=== PATIENT | female | born 1935 | race Caucasian/White ===

== ENCOUNTER 2016-06-29 16:43 | Inpatient (IN) | payer BC, MEDICARE ==
[~2016-06-29] VITALS: Ht 165.1 cm; Wt 101.0 kg
[~2016-06-29 16:43] MED LIST: /PRAV20TA; /WARF5TA; /WARF5TA OR; AZOPT EYE OU; BYETTA; COMBINATION CREAM TOP; CORE12.5; CORE12.5 OR; FOSI40TA; FOSI40TA OR; HYDR25TA6; HYDR25TA6 OR; INSULANT; INSULANT SC; LEVO100T4 PO; LIDO5DIS; NOVOLOG FLEX PEN SC; SIMV40TA2; SIMV40TA2 OR; SKEL800T5; SKEL800T5 OR; SYNT137T; SYNT137T OR; TRAVATAN EYE DROP OU; byetta PO
[2016-06-29] MEDS ORDERED: DULO30CA PO (16:58)
[2016-06-29] MEDS ORDERED: ROCA0.25 PO (16:58)
[2016-06-29] MEDS ORDERED: GABA-283 PO (16:58)
[2016-06-29] MEDS ORDERED: ALLO100T PO (16:58)
[2016-06-29] MEDS ORDERED: NS IV ONE (17:00)
[2016-06-29] MEDS ORDERED: DILUENT IV ONE (17:00)
[2016-06-29 17:07] LABS: VENOUS BASE EXCESS -1.2 (-2.0-2.0); VENOUS O2 SATURATION 83.1 % (60.0-80.0); VENOUS PARTIAL PRESSURE CO2 54.8 mmHg (38.0-50.0); VENOUS PARTIAL PRESSURE O2 51.2 mmHg (30.0-50.0); VENOUS STANDARD HCO3 23.1 MEQ/L; VENOUS TOTAL CO2 27.9 MEQ/L (24.0-28.0)
[2016-06-29 17:09] LABS: BASO # 0.1 K/mm3 (0.0-0.2); BASO % 1.2 % (0.0-1.0); EOS # 0.4 K/mm3 (0.0-0.50); EOS % 8.4 % (0.0-3.0); LARGE UNSTAINED CELL # 0.2 K/mm3 (0.0-0.4); LARGE UNSTAINED CELL % 3.7 % (0.0-4.0); LYMPH # 0.9 K/mm3 (1.5-4.5); LYMPH % 16.1 % (24.0-44.0); MEAN CORPUSCULAR HEMOGLOBIN 31.9 pg (27.0-33.0); MEAN CORPUSCULAR HGB CONC 32.2 g/dl (32.0-36.5); MONO # 0.5 K/mm3 (0.0-0.8); MONO % 9.4 % (0.0-5.0); NEUTROPHILS # 3.3 K/mm3 (1.8-7.7); NEUTROPHILS % 61.2 % (36.0-66.0); PLATELET COUNT, AUTOMATED 209 k/mm3 (150-450); RED CELL DISTRIBUTION WIDTH 12.4 % (11.5-14.5); WHITE BLOOD COUNT 5.3 K/mm3 (4.0-10.0)
--- NOTE | 2016-06-29 17:20 | REP ---
Clinical: Sepsis. Shock. Comparison: 05/02/2013. Findings: Examination is severely limited by portable technique and poor expiratory effort. Basilar atelectasis cannot be excluded. Mediastinum and cardiac silhouette stable. No obvious effusion. No pneumothorax. Skeletal structures intact. Impression: Limited evaluation due to poor inspiratory effort. Cannot exclude basilar atelectasis. Signed by Horace Tapia MD 06/29/2016 05:12 P
[2016-06-29 17:37] LABS: BLOOD UREA NITROGEN 70 MG/DL (7-18); CARBON DIOXIDE LEVEL 28 MEQ/L (21-32); CHLORIDE LEVEL 106 MEQ/L (98-107); CREATININE FOR GFR 2.37 MG/DL (0.55-1.02); GLOMERULAR FILTRATION RATE 20.9 (>32); GLUCOSE, FASTING 121 MG/DL (83-110); POTASSIUM SERUM 3.9 MEQ/L (3.5-5.1); SODIUM LEVEL 142 MEQ/L (136-145)
--- NOTE | 2016-06-29 17:37 | REP ---
Clinical: Trauma. Comparison 11/16/2015 . Findings: Age-related atrophy and microvascular ischemic changes are appreciated. The ventricles and sulci are symmetric. Mares-white differentiation is maintained. There is no evidence for acute intracranial hemorrhage, mass/mass effect, pathology or infarction. No extra-axial fluid collection. Calvarium is intact. Paranasal sinuses and mastoid air cells are clear. Impression: Age related atrophy and microvascular ischemic changes. No acute intracranial hemorrhage, infarction, or mass/mass effect. Signed by Horace Tapia MD 06/29/2016 05:28 P
[2016-06-29 17:38] LABS: ALBUMIN 3.3 GM/DL (3.2-5.2); ALKALINE PHOSPHATASE 95 U/L (45-117); ALT/SGPT 23 U/L (12-78); AMYLASE 41 U/L (25-115); ANION GAP 8 MEQ/L (8-16); AST/SGOT 15 U/L (15-37); BILIRUBIN,DIRECT < 0.1 MG/DL (0.0-0.2); BILIRUBIN,TOTAL 0.4 MG/DL (0.2-1.0); CALCIUM LEVEL 8.9 MG/DL (8.8-10.2); TOTAL PROTEIN 6.3 GM/DL (6.4-8.2)
--- NOTE | 2016-06-29 17:39 | REP ---
Clinical: Trauma. Technique: Axial noncontrast images from the skull base to the thoracic inlet with coronal and sagittal re-formations. Findings: Advanced multilevel degenerative disc osteophyte complexes are appreciated extending from the C1-C2 level through the C7-T1 level including apparent chronic effusion at C6-7. Further findings include osteophytosis, endplate sclerosis and disc space narrowing as well as chondrocalcinosis and partially calcified ligamentum. There is no evidence for acute fracture / compression injury or subluxation. Spinal canal appears grossly patent. Posterior elements and spinous processes are intact. Paravertebral soft tissues are normal. Impression: Advanced multilevel degenerative changes. No evidence for acute cervical spine trauma/injury. Signed by Horace Tapia MD 06/29/2016 05:31 P
--- NOTE | 2016-06-29 17:44 | REP ---
Clinical: Hypotension. Findings: Lung bases demonstrate acute on chronic fibroatelectatic changes. Liver, spleen, pancreas, and bilateral adrenal glands are normal for noncontrast evaluation. Kidneys demonstrate chronic age-related changes including bilateral cysts - the largest of which measures 7.7 cm involving the left kidney. No significant perinephric stranding or hydroureteronephrosis. The patient is status post cholecystectomy. The enteric system demonstrates small hiatal hernia and there is no evidence for bowel obstruction or acute inflammatory process sigmoid diverticulosis noted without definite acute diverticulitis. Normal terminal ileum and appendix identified in the right lower quadrant. 2 cm fat containing periumbilical hernia identified. Pelvis demonstrates normal bladder and age-appropriate uterus/adnexa. No free air. No free fluid. No intraperitoneal or retroperitoneal adenopathy. No obvious mass lesion. Surrounding musculoskeletal structures demonstrate degenerative changes. Impression: 1. No acute intra-abdominal or pelvic pathology. No free fluid. No adenopathy. 2. Bilateral renal cysts largest of which measures 7.7 cm and the left kidney. 3. Sigmoid diverticula without obvious acute diverticulitis. 4. 2 cm fat containing periumbilical hernia. 5. Acute on chronic bibasilar fibroatelectatic changes Signed by Horace Tapia MD 06/29/2016 05:36 P
[2016-06-29 17:54] LABS: INR 2.47
[2016-06-29] MEDS ORDERED: FISH5CAP PO ×2 (17:56→19:27)
[2016-06-29] MEDS ORDERED: cefTRIAXone SOD 2 GM in D5W MINI-BAG PLUS 50 ML IV ONE (18:00)
[2016-06-29] MEDS ORDERED: LYRI75CA PO ×2 (18:07→19:27)
[2016-06-29] MEDS ORDERED: CYMB60CA3 PO (18:07)
[2016-06-29] MEDS ORDERED: TORS20TA2 PO ×3 (18:07→19:27)
[2016-06-29] MEDS ORDERED: MAGN64TASA PO ×2 (18:07→19:27)
[2016-06-29] MEDS ORDERED: SYNT112T2 PO (18:07)
[2016-06-29] MEDS ORDERED: INSULANT SC ×5 (18:07→19:27)
[2016-06-29] MEDS ORDERED: CALC600T57 PO (18:07)
[2016-06-29 18:24] LABS: MAGNESIUM LEVEL 2.6 MG/DL (1.8-2.4); PHOSPHORUS LEVEL 3.9 MG/DL (2.5-4.9); T UPTAKE 38 % (30-39); THYROXINE (T4) 8.4 UG/DL (4.5-12.0)
[2016-06-29] MEDS ORDERED: CALC600T7 PO (19:27)
[2016-06-29] MEDS ORDERED: TYLETAB14 PO (19:27)
[2016-06-29] MEDS ORDERED: ALLO10TA PO (19:27)
[2016-06-29] MEDS ORDERED: NOVOINJ3 SC ×2 (19:27)
[2016-06-29] MEDS ORDERED: FOSI40TA PO (19:27)
[2016-06-29] MEDS ORDERED: CARV12.5 PO (19:27)
[2016-06-29] MEDS ORDERED: CALC1CAP31 PO (19:27)
[2016-06-29] MEDS ORDERED: DORZ2SOL5 OU (19:27)
[2016-06-29] MEDS ORDERED: DULO1CAP3 PO (19:27)
[2016-06-29] MEDS ORDERED: BIMA01SOL OU (19:27)
[2016-06-29] MEDS ORDERED: GABA800T PO (19:27)
[2016-06-29] MEDS ORDERED: LEVO112T2 PO (19:27)
[2016-06-29] MEDS ORDERED: COUM1TAB17 PO (19:29)
[2016-06-29] MEDS ORDERED: ZOCO40TA PO (19:29)
[2016-06-29] MEDS ORDERED: GLUCAGON FOR INJ 1 MG VIAL (J1610) SC PRN (19:30)
[2016-06-29] MEDS ORDERED: ACETAMINOPHEN TAB 650MG DOSE (2X325MG) PO PRN (19:30)
[2016-06-29] MEDS ORDERED: ONDANSETRON 4MG/2ML VIAL (J2405) IV PRN (19:30)
[2016-06-29] MEDS ORDERED: GLUCOSE 4 GM CHEW TABLET PO PRN (19:30)
[2016-06-29] MEDS ORDERED: DEXTROSE 50% 50 ML SYRINGE IV PRN (19:30)
--- NOTE | 2016-06-29 20:00 | HPE ---
DATE OF ADMISSION: 06/29/2016 PRIMARY CARE PROVIDER: Dr. Florez. CODE STATUS: FULL CODE. CHIEF COMPLAINT: Generalized weakness with mechanical fall earlier this afternoon. HISTORY OF THE PRESENT ILLNESS: Ms. Ojeda is a pleasant 80-year-old female who presents to the emergency department accompanied with her family, concerned for a fall after having a bowel movement earlier today and felt that her legs were weak and just gave out underneath her. She denies loss of consciousness, is unsure, however, if she had hit her head or not but denies any headache, lightheadedness, dizziness, blurry vision or double vision and states again that she felt that her legs had just "buckled" underneath her. She did have a loose bowel movement today, but she denies any previous to this. Denies any sick contacts. She did have some nausea with no vomiting. Denies any hematochezia or melena. She did state that the ripsaw operator that she sees, Dr. Silva, has been making changes with her torsemide and Lasix recently, that she has noticed an increase in urine output since then and her leg swelling has decreased dramatically in the last week or so. Additionally, she has recently had shingles with postherpetic neuralgia, has had the addition of Lyrica started and she wonders if this may be a causative factor to her problems as well. PAST MEDICAL HISTORY: Includes: Gout. Hypertension. Depression. Diabetes. Diabetic neuropathy. Postherpetic neuralgia. Atrial fibrillation. Hypothyroidism. Hyperlipidemia. Gastroesophageal reflux disease (GERD). Chronic low back pain. Conjunctive hemorrhage in the past. Obstructive sleep apnea (JOSE) with continuous positive airway pressure (CPAP). PAST SURGICAL HISTORY: Includes: Cholecystectomy. Cervical neck hernia repair. Rotator cuff repair. FAMILY HISTORY: Noncontributory. SOCIAL HISTORY: She lives at home. No tobacco use. No alcohol use. No sick contacts. No recent travel. ALLERGIES: QUINOLONES and TRAMADOL. HOME MEDICATIONS: Include: - allopurinol - calcitriol - Coreg - Cymbalta - fish oil - gabapentin - hydrochlorothiazide - Lantus - Synthroid - magnesium oxide - Lyrica - Zocor - torsemide - Coumadin - Azopt eye drops - NovoLog FlexPen - Travatan eye drops - There has been some disagreement with the milligram dosage of the medications compared to the electronic medical record and the home medication list that the patient presents with. Pharmacy is currently working on the medication reconciliation. REVIEW OF SYSTEMS: CONSTITUTIONAL: No fevers, chills, rigors. She did have some weakness but no loss of consciousness. HEENT: She denies headache, lightheadedness, dizziness, blurry vision, double vision or tinnitus. No difficulty with speech or swallow. PULMONARY: No productive sputum. She denies cough. No hemoptysis. CARDIOVASCULAR: She denies substernal chest pain. No paroxysmal nocturnal dyspnea (PND) or orthopnea. She feels that her lower extremity edema is much improved. GASTROINTESTINAL (GI): Some nausea with no vomiting. She did have a loose bowel movement times one earlier. She denies any hematochezia or melena. GENITOURINARY (): She has had some increased frequency; however, she feels it is due to the change in dose of the diuretics. No hematuria. NEUROLOGIC: She did have an episode of weakness today but no loss of consciousness, no paresthesia or paralysis. ENDOCRINE: Positive for diabetes. Positive for hypothyroidism. LYMPHATICS: No lumps, bumps, swelling in the neck, axilla or groin. No night sweats. No weight loss. HEMATOLOGY: No bleeding or bruising disorder. No prior history of venous thromboembolism. ONCOLOGY: No history of cancer. PSYCHIATRIC: Remote history of depression. No suicidal ideation. No audiovisual hallucinations. 10-point review of systems complete. Pertinent positives are listed. PHYSICAL EXAMINATION: Temperature is 96.0, pulse is 60 and regular, respiratory rate is 18, nonlabored. Blood pressure initially on presentation 116/51. It did drop to 99/49. She did receive a fluid bolus that she is in the process of, 30 mL per kilogram and her pressures now are much improved with a blood pressure 111/55. SpO2 is 93%. GENERAL: The patient appears to be in no acute distress. She is alert, pleasant to talk to. HEENT: Head is atraumatic, normocephalic. Eyes: Pupils equal, reactive to light and accommodation. Throat: Clear. Mucosal membrane does appear to be dry. NECK: Supple. Unable to determine jugular venous distention (JVD) due to body habitus. LUNGS: Diminished bibasilar breath sounds, otherwise clear. HEART: Regular rate and rhythm. ABDOMEN: Soft, obese. Nontender, nondistended with positive bowel sounds. No masses, no rebound. EXTREMITIES: She has 1+ edema at the ankles. No calf tenderness. Pulses are present. NEUROLOGIC: Cranial nerves II-XII are grossly intact. LABORATORY AND DIAGNOSTIC: White count is 5.3, hemoglobin 13.5, platelets are 209,000. Sodium is 142, potassium 3.9, chloride 106, bicarbonate 28, anion gap 8. BUN is 70, creatinine 2.37. She appears to have a baseline around 1.3 to 1.4. Lactic acid is 2, calcium 8.9, phosphorus 3.9, magnesium 2.6, total and direct bilirubin 0.4 and less than 0.1. AST 15, ALT 23, alkaline phosphatase 95, CK is 98, CK-MB is 2.5, troponin is less than 0.02. CRP is 2.08. Amylase is 1.1. TSH is 0.74. Blood culture times two is pending. Influenza A and B are pending. Will go ahead and add on a GI panel as well. Twelve lead EKG: Sinus bradycardia with occasional PVC. No acute ST-T wave abnormality noted. Chest x-ray: Poor inspiratory effort but no acute cardiopulmonary processes. No consolidation or infiltrate noted. CT of the abdomen and pelvis: No acute intraabdominal or pelvic pathology. No free fluid. No adenopathy. Bilateral renal cysts, largest measuring 7.7 of the left kidney, sigmoid diverticula without obvious acute diverticulitis, 2 cm fat-containing periumbilical hernia. Acute on chronic bibasilar fibroatelectatic changes. Head CT: No acute intracranial hemorrhage. Age-related microvascular ischemic changes. Cervical spine CT did show some degenerative changes, otherwise no acute findings. IMPRESSION: A pleasant 80-year-old female who presents after having an episode of generalized weakness and fall at home with no loss of consciousness. She has had changes in some of her medications regarding her diuretics and Lyrica recently. Clinically, she appears to be dry. She did receive some IV fluids. Will go ahead and admit her for observation overnight and likely will be ready for discharge home tomorrow morning. PROBLEM LIST: 1. Hypotension. 2. Acute on chronic renal failure. 3. History of hypertension. 4. Hyperlipidemia. 5. Atrial fibrillation, rate controlled on Coumadin. 6. Diabetes with diabetic neuropathy. 7. Neuropathic pain from shingles. 8. Hypothyroidism. 9. Gout. PLAN: Patient admitted to the progressive care unit (PCU) on telemetry per Dr. Dick. Hold nephrotoxic drugs. Hold her diuretics overnight. She was given IV fluid bolus in the emergency department. Will see if this continues to help with her blood pressure. Otherwise, will saline lock her overnight, consistent carbohydrate diet, fasting sugars before food and nightly with sliding scale insulin coverage per [facility] protocol, cycle troponins, daily INR, check a urinalysis, urine culture and GI panel. Physical therapy evaluation and treatment. Deep vein thrombosis (DVT) prophylaxis with Coumadin. DISPOSITION: She will likely be ready for home discharge tomorrow morning if she clears physical therapy and no other significant findings.
[2016-06-29 20:25] LABS: METHADONE URINE NEGATIVE (NEGATIVE)
[2016-06-29] MEDS ORDERED: MAGNESIUM CHLORIDE 64 MG TABCR (SLO MAG) PO SCH (21:00)
[2016-06-29] MEDS: HumaLOG INSULIN (NovoLOG) PER UNIT SC SCH (21:00)
[2016-06-29 22:25] VITALS: BP 127/54
[2016-06-29] MEDS: GABAPENTIN 400 MG CAP PO SCH (23:03)
[2016-06-29] MEDS: DULoxetine 30 MG CAP (CYMBALTA) PO SCH (23:03)
[2016-06-29] MEDS: LEVEMIR (INSULIN DETEMIR) 1 UNITS/0.01ML SC SCH (23:03)
[2016-06-29] MEDS: SIMVASTATIN 40 MG TAB PO SCH (23:04)
[2016-06-29] MEDS: COSOPT OCUMETER PLUS 10ML (DORZOLAMIDE/TIMOLOL) OU SCH (23:44)
[2016-06-30] VITALS (21 sets, daily range): BP systolic 105–143; BP diastolic 52–68; O2SAT 87–95
[2016-06-30] MEDS ORDERED: SLF 3 ML SYR IV PRN (00:45)
[2016-06-30] MEDS: LEVOTHYROXINE 0.112 MG TAB (112 MCG) PO SCH (06:41)
[2016-06-30] MEDS: SLF 3 ML SYR IV SCH ×3 (06:41→21:40)
[2016-06-30 07:19] LABS: INR 2.65
[2016-06-30 07:24] LABS: MEAN CORPUSCULAR HEMOGLOBIN 32.3 pg (27.0-33.0); RED CELL DISTRIBUTION WIDTH 12.8 % (11.5-14.5); WHITE BLOOD COUNT 5.1 K/mm3 (4.0-10.0)
[2016-06-30 07:37] LABS: ANION GAP 8 MEQ/L (8-16); BLOOD UREA NITROGEN 60 MG/DL (7-18); CALCIUM LEVEL 8.4 MG/DL (8.8-10.2); CARBON DIOXIDE LEVEL 30 MEQ/L (21-32); CHLORIDE LEVEL 110 MEQ/L (98-107); CREATININE FOR GFR 1.81 MG/DL (0.55-1.02); GLOMERULAR FILTRATION RATE 28.5 (>32); GLUCOSE, FASTING 154 MG/DL (83-110); MAGNESIUM LEVEL 2.2 MG/DL (1.8-2.4); POTASSIUM SERUM 3.5 MEQ/L (3.5-5.1); SODIUM LEVEL 148 MEQ/L (136-145)
[2016-06-30] MEDS: COSOPT OCUMETER PLUS 10ML (DORZOLAMIDE/TIMOLOL) OU SCH ×2 (08:20→21:38)
[2016-06-30] MEDS: DULoxetine 30 MG CAP (CYMBALTA) PO SCH ×2 (08:21→21:42)
[2016-06-30] MEDS: ALLOPURINOL 100 MG TAB PO SCH (08:21)
[2016-06-30] MEDS: CALCIUM/VITAMIN D 500 MG TAB PO SCH (08:21)
[2016-06-30] MEDS: LEVEMIR (INSULIN DETEMIR) 1 UNITS/0.01ML SC SCH ×2 (08:22→21:39)
[2016-06-30] MEDS: HumaLOG INSULIN (NovoLOG) PER UNIT SC SCH ×4 (08:22→21:00)
[2016-06-30] MEDS: CARVedilol 12.5 MG TAB PO SCH ×2 (08:27→21:39)
[2016-06-30 08:37] LABS: ABG BASE EXCESS 3.1 (-2.0-2.0); ABG HCO3 28.2 MEQ/L (22.0-26.0); ABG PARTIAL PRESSURE O2 50.9 mmHg (75.0-100.0); ABG STANDARD HCO3 26.9 MEQ/L (22.0-26.0); ABG TOTAL CO2 29.6 MEQ/L (23.0-31.0); ABG pH (ARTERIAL) 7.415 UNITS (7.350-7.450)
[2016-06-30] MEDS: NYSTATIN 100,000 UNITS/GM TOPICAL PWD 15 GM TOP SCH ×2 (09:00→21:38)
[2016-06-30] MEDS ORDERED: CALCITRIOL 0.25 MCG CAP (S0169) PO SCH (09:00)
--- NOTE | 2016-06-30 10:04 | IPNPDOC ---
Date Seen The patient was seen on 06/30/16. Progress Note SUBJECTIVE: Ms. Ojeda is an 80-year-old female sitting on the edge of the bed with her legs dangling over the edge of the bed upon evaluation this morning. She states that she slept well last night. Reports no nausea, vomiting , abdominal pain, chest pain, shortness of breath. States she does have swelling on her legs. Recent adjustments were made to her torsemide. Currently being held secondary to hypotension and elevated creatinine. Patient does follow with nephrology and they have been consulted. Hospitalized secondary to a fall she sustained at home with one episode of diarrhea. Patient reports no further diarrhea since being hospitalized. Orthostatics have been positive. Patient reports intermittent use of CPAP. States that her machine needs to be adjusted. Reports excessive daytime somnolence. Patient and daughter state that patient does have upper extremity bilateral intention tremors to the point where she is not able to hold a cup of coffee or feed herself without food falling off the fork. OBJECTIVE PHYSICAL EXAMINATION: VITAL SIGNS: Please see below. GENERAL: Obese female sitting up in the hospital bed with her legs dangling over the edge, appears stated age, somewhat hard of hearing, in no apparent distress HEENT: Atraumatic, normocephalic, PERRL, EOMI, oral mucosa appears pink and moist, nasal septum is midline, wears spectacles CARDIOVASCULAR: At time of evaluation regular rate and rhythm, normal S1 and S2 , no murmur, click, rub RESPIRATORY: Clear to auscultation bilaterally, adequate inspiratory and expiratory airway excursion, no wheeze, rhonchi or crackles ABDOMINAL: Round, soft, nontender, nondistended, bowel sounds appreciated EXTREMITIES: Radial pulses appreciated bilaterally, equal, symmetrical, +2/4, 1- 2+ pitting edema noted on lower extremities bilaterally, peripheral pulses appreciated bilaterally in lower extremities, equal, symmetrical, +2/4, venous stasis noted on lower extremities bilaterally NEUROLOGICAL: Cranial nerves II through XII appear grossly intact PSYCHOLOGICAL: Mood and affect appear appropriate LABORATORY DATA: Please see below. MICROBIOLOGY: Please see below. IMAGING: Portable chest x-ray IMPRESSION: Limited evaluation due to poor inspiratory effort. Cannot exclude basilar atelectasis. CT of the abdomen and pelvis without contrast IMPRESSION: 1. No acute intra-abdominal or pelvic pathology. No free fluid. No adenopathy. 2. Bilateral renal cysts largest of which measures 7.7 cm and the left kidney. 3. Sigmoid diverticula without obvious acute diverticulitis. 4. 2 cm fat containing periumbilical hernia. 5. Acute on chronic bibasilar fibroatelectatic changes CT of the head without contrast IMPRESSION: Age related atrophy and microvascular ischemic changes. No acute intracranial hemorrhage, infarction, or mass/mass effect. CT of the cervical spine without contrast IMPRESSION: Advanced multilevel degenerative changes. No evidence for acute cervical spine trauma/injury. DVT prophylaxis ordered?: Coumadin, therapeutic INR to be maintained between 2-3 ASSESSMENT AND PLAN: This is an 80-year-old female presented with fall with diarrhea and found to have acute kidney failure and orthostatic hypotension. PROBLEMS: 1. Orthostatic hypotension: Orthostatics continue to remain positive. Have consulted physical therapy. Patient does use a walker and a cane at home. Denies weakness, dizziness, lightheadedness. Obtaining an echocardiogram. Troponins thus far have been negative. Patient has positive fluid balance of 1350 mL overnight. Current blood pressure is 134/60. Orthostatic vital signs to be continued. Patient does have obstructive sleep apnea and intermittently with CPAP at home. Have instructed patient's daughter to bring in CPAP machine. Patient remains on continuous pulse oximetry. Instructed nursing to ambulate patient on pulse oximetry and monitor oxygenation. 2. Acute kidney failure superimposed on chronic kidney disease: Patient's BUN/ creatinine are 16 and 1.81, respectively. This is improved. Likely secondary to underlying dehydration. Have discussed with nephrology so they are aware of patient's condition. Continue to hold nephrotoxins. Patient follows with nephrology outpatient. 3. Obstructive sleep apnea: Patient does report excessive daytime somnolence. Intermittently wears CPAP at home. States that machine needs to be adjusted. Have instructed patient's daughter to bring in CPAP machine. JOSE protocol in place. ABGs improved compared to the VBG that was performed in the emergency department. 4. Bilateral upper extremity tremor: CT of the head without contrast was negative. Could be medication related. Can consider EMG studies. Consider occupational therapy as an outpatient. 5. Atrial fibrillation: Patient is normal sinus rhythm upon evaluation this morning. Remains on Coumadin and has a therapeutic INR of 2.65. We'll continue Coumadin therapy. Patient is also on beta jessica. 6. Hypothyroidism: Continue patient on levothyroxine. 7. Diabetes mellitus: Patient is on sliding scale insulin. Hypoglycemic protocol. 8. Neuropathy: Secondary to long-standing diabetes. Patient is on gabapentin and Cymbalta. 9. Count: Patient remains on allopurinol. 10. Glaucoma: Patient remains on dorzolamide eyedrops. DISPOSITION: Patient was admitted to the progressive care unit. Evaluating patient for orthostatic hypotension. Physical therapy has been consulted. Kidney function appears to be improving. Continue to hold nephrotoxins. Case discussed with nephrology. Patient remains on Coumadin and has a therapeutic INR of 2.65. Instructed patient's daughter to bring in patient's CPAP machine. ABG shows improvement. Will monitor patient on continuous pulse oximetry with ambulation. Patient might need oxygen as an outpatient. VS, I&O, 24H, [facility] Vital Signs/I&O Vital Signs Date Time Temp Pulse Resp B/P Pulse Ox O2 Delivery O2 Flow Rate FiO2 06/30/16 08:27 66 134/60 06/30/16 08:05 Room Air 06/30/16 07:48 98.5 20 96 06/29/16 22:25 3.0 I&O- Last 24 Hours up to 6 AM 06/30/16 06:00 Intake Total 1850 ml Output Total 975 ml Balance 875 ml Laboratory Data 24H LABS Laboratory Tests 2 06/29/16 16:54: Activated Partial Thromboplast Time 47.7H, Aspartate Amino Transf (AST/SGOT) 15 , Alanine Aminotransferase (ALT/SGPT) 23, Alkaline Phosphatase 95, Total Bilirubin 0.4, Direct Bilirubin < 0.1, Albumin 3.3, Albumin/Globulin Ratio 1.10 , Amylase Level 41, Anion Gap 8, White Blood Count 5.3, Red Blood Count 4.23, Hemoglobin 13.5, Hematocrit 41.9, Mean Corpuscular Volume 99.0H, Mean Corpuscular Hemoglobin 31.9, Mean Corpuscular Hemoglobin Concent 32.2, Red Cell Distribution Width 12.4, Platelet Count 209, Neutrophils (%) (Auto) 61.2, Lymphocytes (%) (Auto) 16.1L, Monocytes (%) (Auto) 9.4H, Eosinophils (%) (Auto) 8.4H, Basophils (%) (Auto) 1.2H, Neutrophils # (Auto) 3.3, Lymphocytes # (Auto) 0.9L, Monocytes # (Auto) 0.5, Eosinophils # (Auto) 0.4, Basophils # (Auto) 0.1, Blood Gas Bicarbonate Standard 23.1, C-Reactive Protein, Quantitative 2.08H, Calcium Level 8.9, Creatine Kinase MB 2.5, Creatine Kinase MB Relative Index 2.55, Free Thyroxine Index 3.2, Glomerular Filtration Rate 20.9L, Lactic Acid Level 2.0, Large Unclassified Cells # 0.2, Large Unclassified Cells % 3.7, Magnesium Level 2.6H, Phosphorus Level 3.9, Prothromb Time International Ratio 2.47, Prothrombin Time 26.8H, Thyroid Stimulating Hormone (TSH) 0.748, Thyroxine (T4) 8.4, Total Creatine Kinase 98, Total Protein 6.3L, Triiodothyronine (T3) Uptake 38, Troponin I < 0.02, Venous Blood Base Excess - 1.2, Venous Blood pH 7.297L, Venous Blood Partial Pressure CO2 54.8H, Venous Blood Partial Pressure O2 51.2H, Venous Blood Total Carbon Dioxide 27.9, Venous Blood HCO3 26.2, Venous Blood Oxygen Saturation 83.1H 06/29/16 18:46: Urine Amorphous Sediment , Urine Appearance CLEAR, Urine Color STRAW, Urine pH 5.0, Urine Specific [place] 1.005, Urine Protein NEGATIVE, Urine Glucose (UA) NEGATIVE, Urine Ketones NEGATIVE, Urine Urobilinogen 0.2, Urine Bilirubin NEGATIVE, Urine Leukocyte Esterase NEGATIVE, Urine Bacteria (Auto) 1+H, Urine Blood NEGATIVE, Urine Calcium Carbonate Cryst(Auto) , Urine Calcium Oxalate Cryst (Auto) , Urine Calcium Phosphate Geno (Auto) , Urine Cellular Casts , Urine Cystine Crystals , Urine Granular Casts (Auto) , Urine Hyaline Casts (Auto ) 4, Urine Leucine Crystals , Urine Mucus (Auto) SMALL, Urine Nitrite NEGATIVE, Urine Oval Fat Bodies (Auto) , Urine RBC (Auto) 1, Urine Renal Epithelial Cells , Urine Sperm (Auto) , Urine Squamous Epithelial Cells 1, Urine Transitional Epithelial Cells , Urine Trichomonas (Auto) , Urine Triple Phosphate Cryst (Auto ) , Urine Tyrosine Crystals , Urine Uric Acid Crystals (Auto) , Urine WBC (Auto ) 1, Urine Waxy Casts (Auto) , Urine Yeast-Like Cells (Auto) 06/29/16 18:47: Urine Amphetamines Screen NEGATIVE, Urine Benzodiazepines Screen NEGATIVE, Urine Opiates Screen POSITIVEH, Urine Barbiturates Screen NEGATIVE, Urine Cannabinoids Screen NEGATIVE, Urine Cocaine Metabolite Screen NEGATIVE, Urine Methadone Screen NEGATIVE, Urine Phencyclidine Screen NEGATIVE 06/29/16 18:51: Lactic Acid Level 1.0 06/29/16 20:48: Bedside Glucose (Misc Panel) 116H 06/29/16 22:41: Bedside Glucose (Misc Panel) 217H 06/29/16 23:52: Creatine Kinase MB 6.1H, Creatine Kinase MB Relative Index 4.38H, Total Creatine Kinase 139, Troponin I < 0.02 06/30/16 06:55: Bedside Glucose (Misc Panel) 145H 06/30/16 07:00: Anion Gap 8, Blood Urea Nitrogen 60H, Creatinine 1.81H, Sodium Level 148H, Potassium Level 3.5, Chloride Level 110H, Carbon Dioxide Level 30, Calcium Level 8.4L, Total Creatine Kinase 129, Creatine Kinase MB 4.1H, Creatine Kinase MB Relative Index 3.17, Glomerular Filtration Rate 28.5L, Magnesium Level 2.2, Prothromb Time International Ratio 2.65, Prothrombin Time 28.3H, Troponin I < 0.02 06/30/16 08:29: Arterial Blood pH 7.415, Arterial Blood Partial Pressure CO2 45.0, Arterial Blood Partial Pressure O2 50.9L, Arterial Blood Total CO2 29.6, Arterial Blood HCO3 28.2H, Arterial Blood Base Excess 3.1H, Arterial Blood Oxygen Saturation 86.5L, Blood Gas Bicarbonate Standard 26.9H CBC/BMP Laboratory Tests 06/29/16 16:54 Red Blood Count 4.23, Mean Corpuscular Volume 99.0 H, Mean Corpuscular Hemoglobin 31.9, Mean Corpuscular Hemoglobin Concent 32.2, Red Cell Distribution Width 12.4, Neutrophils (%) (Auto) 61.2, Lymphocytes (%) (Auto) 16.1 L, Monocytes (%) (Auto) 9.4 H, Eosinophils (%) (Auto) 8.4 H, Basophils (%) (Auto) 1.2 H, Neutrophils # (Auto) 3.3, Lymphocytes # (Auto) 0.9 L, Monocytes # (Auto) 0.5, Eosinophils # (Auto) 0.4, Basophils # (Auto) 0.1 06/30/16 07:00 Red Blood Count 3.87 L, Mean Corpuscular Volume 98.0 H, Mean Corpuscular Hemoglobin 32.3, Mean Corpuscular Hemoglobin Concent 33.0, Red Cell Distribution Width 12.8, Calcium Level 8.4 L, Total Creatine Kinase 129 Microbiology Microbiology 06/29/16 Blood Culture, Received Pending 06/29/16 Blood Culture, Received Pending 06/29/16 Influenza Virus Type A Antigen - Final, Complete 06/29/16 Influenza Virus Type B Antigen - Final, Complete 06/29/16 Urine Culture, Received Pending LARRY PEREZ Jun 30, 2016 10:04
--- NOTE | 2016-06-30 13:52 | CR ---
DATE OF CONSULTATION: 06/30/2016 PRIMARY CARE PROVIDER: Dr. Kim Florez. OIL HEATER INSTALLER: Dr. Silva. ATTENDING PHYSICIAN: Dr. Vidhya Chaparro. CHIEF COMPLAINT: Leg weakness and fall. HISTORY OF PRESENT ILLNESS: Ms. Ojeda is a pleasant 80-year-old female with a past medical history of stage III/IV chronic kidney disease (CKD) and hypertension who presented to the emergency department on 06/29/2016 after an episode of weakness and close to falling at home. The patient was reportedly in her bathroom and after having a bowel movement, as she walked out of her bathroom, started feeling weak to both of her knees. She then fell down on her right side, there was no trauma or injury to her head. Denies lightheadedness, dizziness, nausea, vomiting, blurred vision, double vision prior to her episode. Reports good by mouth intake and only had one episode of loose bowel movements yesterday prior to her fall. The patient previously was seeing her primary care provider for CKD and was on Lasix 20 mg twice a day. However, because of her persistent edema and worsening renal function, she was referred to Dr. Silva and was placed on torsemide 40 twice a day. After started on torsemide, her edema improved but her renal function worsened. The dose was then decreased down to 40 daily. But because the patient developed persistent blistering to her legs, this dose was recently adjusted 5 days ago to torsemide 40 in the morning and 20 in the afternoon time. She does report a 5-pound weight loss in the last 5 days. She has been sleeping in her recliner, not because of shortness of breath, but because of shoulder pain. Denies any chest pain, shortness of breath, palpitations paroxysmal nocturnal dyspnea, pillow orthopnea. Endorses chronic leg swelling, which improves with diuretics. Aside from her leg weakness and blistering to her legs, she feels well otherwise. In the emergency department, she was found to be orthostatic hypotensive and was given a total of 1500 mL of IV fluid. She had multiple imaging including a CT head that was unrevealing. Nephrology services consulted for assistance in her management of CKD. PAST MEDICAL HISTORY: Obstructive sleep apnea. She has not been using her CPAP machine in the last few months because of the machine being old. She does have a script for a new mask. Chronic kidney disease, baseline III/IV. Atrial fibrillation on Coumadin. Gout. Insulin dependent diabetes. Hyperlipidemia. Chronic back pain. Chronic neck pain. Hypothyroidism. Obesity. Shingles. Postherpetic neuralgia. PAST SURGICAL HISTORY: Cholecystectomy. Cervical hernia repair. Rotator cuff repair. ALLERGIES: TRAMADOL - hives. QUINOLONES - unknown reaction. HOME MEDICATIONS: - Tylenol with codeine, one tablet four times a day as needed - allopurinol 100 mg daily - Lumigan one drop OU nightly - calcitriol 0.25 mg times a week, Sunday, Sunday and Sunday - calcium with vitamin D 600/200 one tablet by mouth daily - Coreg 12.5 mg by mouth twice a day - dorzolamide one drop OU twice a day - duloxetine 60 mg by mouth twice a day - fish oil 1200 mg by mouth twice a day - fosinopril 40 mg by mouth daily - gabapentin 800 mg by mouth nightly - NovoLog flex pen 10 units subcutaneous every morning and 18 units every night. - Lantus 40 units subcutaneous twice a day - Synthroid 112 mcg daily - magnesium chloride 128 by mouth twice a day - Lyrica 75 mg three times a day - Zocor 40 mg nightly - torsemide 40 mg every morning and 20 mg in the afternoon - Coumadin 5 mg by mouth daily CURRENT INPATIENT MEDICATIONS: Include - Coumadin 5 mg by mouth daily - allopurinol 100 mg daily - calcitriol 0.25 mg times a week, Sunday, Sunday and Sunday - Os-Keith 500 daily - Coreg 12.5 mg by mouth twice a day - insulin sliding scale - Synthroid 112 mcg daily - Cymbalta 60 mg by mouth twice a day - Neurontin 800 mg nightly - Zocor 40 nightly - Levemir 40 twice a day Along with Tylenol and Zofran. She did receive a one-time dose of Rocephin in the emergency department and also received a total of 1500 mL. FAMILY HISTORY: Noncontributory. SOCIAL HISTORY: The patient is a current nonsmoker, used to smoke but only for less than 1 year, quit 62 years ago. No alcohol, no drug use. She used to work for a [employer] company. Last time traveled goes to [place], [place] and [place]. No exposure to tuberculosis, or asbestos that she is aware of. No pets. Lives at home with her . REVIEW OF SYSTEMS: CONSTITUTIONAL: Positive for 5-pound weight loss, as mentioned above. Positive for bilateral leg weakness. Denies fevers, chills, rigors. HENT: Denies headaches, lightheadedness, difficulty with speech and swallow. EYES: Denies dizziness, blurry vision CARDIOVASCULAR: Positive for atrial fibrillation on Coumadin and chronic bilateral leg swelling. Denies chest pain, paroxysmal nocturnal dyspnea, pillow orthopnea. PULMONARY: Denies shortness of breath, productive cough, hemoptysis. GASTROINTESTINAL: Denies hematochezia, melena, or hematemesis, nausea, vomiting, diarrhea, constipation. Had only one episode of loose bowel movement. GENITOURINARY: No dysuria, frequency or hematuria. MUSCULOSKELETAL: No bone, muscle, joint pain. NEUROLOGICAL: No paralysis, paresthesia, headaches. ENDOCRINE: Positive for thyroid disease and diabetes. LYMPHATICS: No lumps, bumps, or swelling anywhere in neck, axilla, or groin. HEMATOLOGY: No abnormal bleeding or bruising. PSYCHIATRIC: No anxiety or depression. INTEGUMENT: Positive for blister to her legs as mentioned. PHYSICAL EXAMINATION: VITALS: Blood pressure 134/60, heart rate 66, temperature 98.5, respiratory rate 20, pulse ox 96% on room air. She was found to be orthostatic when she first came in. Intake and output over the last 24 hours 1750 and 400. A positive of 1350, weight is 105 kg. GENERAL: Patient is sitting in bed comfortable in no acute distress. She is alert, awake, oriented times three. Pleasant, cooperative. Daughter at bedside. HEENT: Normocephalic, atraumatic. Moist oral mucosa without exudates or lesions are noted. EYES: Extraocular movement intact. Pupils equal and reactive to light. NECK: Supple, trachea midline. No jugular venous distention. Large neck. CHEST: Symmetric chest rise, no accessory muscle use. Breath sounds were diminished bilaterally without adventitious lung sounds. HEART: Regular rate and rhythm, S1, S2 present. No appreciable murmurs, rubs or gallops. ABDOMEN: Obese, nontender, nondistended, bowel sounds, present, no guarding, no rebound. Difficult to appreciate organomegaly secondary to body habitus. EXTREMITY: Difficult to appreciated pedal pulses secondary to edematous changes. Brachial pulses intact. She does have 1 to 2+ pitting edema, bilaterally with occasional blister more significant on her left lower extremity. SKIN: She has chronic venostasis changes with blisters as mentioned above. PSYCHIATRIC: She is pleasant, cooperative, normal affect. NEUROLOGIC: Alert, awake oriented times three. LABORATORY DATA: WBC 5.1, hemoglobin 12.5, hematocrit 37.9, platelets 200. Sodium 148, potassium 3.5, chloride 110, carbon dioxide 30, BUN 60, creatinine 1.81, improved from yesterday at 2.37, glucose 154, calcium 8.4, magnesium 2.2. CK 122 , troponins negative times three. Thyroid studies on admission were negative. Lactic acid is normal. Coagulation studies: INR 2.65, Urine tox screen positive for opiates. Urinalysis positive for 1+ bacteria. Influenza screen negative. Blood cultures pending. Urine culture pending. Chest x-ray showed poor inspiratory effort. No obvious infiltrate or effusion noted. CT abdomen and pelvis: No acute intra-abdominal or pelvic pathology. No free fluid. No adenopathy. Bilateral renal cysts, largest which measures 7.7 cm. Sigmoid diverticula without acute diverticulitis. 2 cm fat containing periumbilical hernia. Acute on chronic bibasilar fibroatelectasis. CT head showed age-related atrophy and microvascular ischemic changes. Cervical spine showed advanced multilevel degenerative changes without acute cervical spine trauma or injury. IMPRESSION: Mrs. Ojeda is an 80-year-old female with history of baseline CKD III to IV, atrial fibrillation, hypertension, obstructive sleep apnea not on home CPAP who presented with bilateral leg weakness and fall. She was found to have worsening renal function believed to be secondary to dehydration. Since admission, her home nephrotoxic medications have been on hold. 1. Acute on chronic kidney disease: Her baseline CKD is III to IV. Her worsening renal function is likely secondary to dehydration. At this time, recommend checking urine creatinine and urine sodium to calculate FEna and checking uric acid. Her renal function improved after IV hydration. Recommend holding torsemide for now until her labs return along with her echocardiogram, which has been ordered. Will advise holding JOE inhibitor until further evaluation outpatient. Based on her echo results, if the report shows dilated IVC, we will consider restarting torsemide. 2. Edema: Cause for bilateral lower extremity edema is likely multifactorial, which includes underlying CKD, varicose veins along with atrial fibrillation. Because of her worsening renal function on admission, her diuretic has been on hold. Agree with holding this for now until her labs return as mentioned. For her varicose veins, recommend adding compression stockings and leg elevation at all times when she is lying down. She is currently being treated for atrial fibrillation with Coreg and Coumadin. She does have an echo pending. The patient should be on a low sodium diet. 3. Hypernatremia likely secondary to normal saline administration. Repeat lab work in the morning. 4. Orthostatic hypotension: Blood pressure is significantly improved after gentle IV hydration. 5. Obstructive sleep apnea: She has not been using her machine but currently there is plan for family to bring in her new mask. 6. Atrial fibrillation: She is on Coreg and Coumadin. INR is therapeutic. 7. Hypertension: Her blood pressure was actually low on admission. Recommend continuing Coreg for her history of atrial fibrillation for now but hold JOE inhibitor and torsemide until further evaluation. Thank you for allowing us to participate in Mrs. Ojeda's care. We will continue to follow her with you. My preceptor for this patient encounter was Dr. Vidhya Chaparro. The preceptor was physically present in the building during the encounter and was fully available. As needed, all aspects of the patient interview, examination, medical decision making process, and medical care plan development were reviewed and approved by the preceptor. The preceptor is aware and concurs with the plan as stated in the body of this note and will attest to such by his/her cosignature. cc: Dr. Kim LOVELL
[2016-06-30 15:04] LABS: URIC ACID 9.7 MG/DL (2.6-6.0)
--- NOTE | 2016-06-30 16:34 | ECGEPIP ---
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
[2016-06-30] MEDS ORDERED: WARFARIN SOD 5 MG TAB PO SCH (17:00)
[2016-06-30] MEDS: SIMVASTATIN 40 MG TAB PO SCH (21:39)
[2016-06-30] MEDS: GABAPENTIN 400 MG CAP PO SCH (21:39)
[2016-07-01] VITALS (10 sets, daily range): BP systolic 117–139; BP diastolic 58–66; O2SAT 85–95
[2016-07-01 05:22] LABS: MEAN CORPUSCULAR HEMOGLOBIN 32.4 pg (27.0-33.0); MEAN CORPUSCULAR VOLUME 98.3 fl (80.0-96.0); RED CELL DISTRIBUTION WIDTH 12.6 % (11.5-14.5); WHITE BLOOD COUNT 4.6 K/mm3 (4.0-10.0)
[2016-07-01 05:24] LABS: INR 2.68
[2016-07-01 05:44] LABS: CALCIUM LEVEL 8.7 MG/DL (8.8-10.2); CREATININE FOR GFR 1.51 MG/DL (0.55-1.02); GLOMERULAR FILTRATION RATE 35.1 (>32); MAGNESIUM LEVEL 2.2 MG/DL (1.8-2.4); POTASSIUM SERUM 3.6 MEQ/L (3.5-5.1)
[2016-07-01] MEDS: LEVOTHYROXINE 0.112 MG TAB (112 MCG) PO SCH (06:51)
[2016-07-01] MEDS: SLF 3 ML SYR IV SCH (06:52)
[2016-07-01] MEDS: ALLOPURINOL 100 MG TAB PO SCH (09:19)
[2016-07-01] MEDS: NYSTATIN 100,000 UNITS/GM TOPICAL PWD 15 GM TOP SCH (09:19)
[2016-07-01] MEDS: COSOPT OCUMETER PLUS 10ML (DORZOLAMIDE/TIMOLOL) OU SCH (09:19)
[2016-07-01] MEDS: CALCIUM/VITAMIN D 500 MG TAB PO SCH (09:19)
[2016-07-01] MEDS: CARVedilol 12.5 MG TAB PO SCH (09:19)
[2016-07-01] MEDS: LEVEMIR (INSULIN DETEMIR) 1 UNITS/0.01ML SC SCH (09:19)
[2016-07-01] MEDS: DULoxetine 30 MG CAP (CYMBALTA) PO SCH (09:19)
[2016-07-01] MEDS: HumaLOG INSULIN (NovoLOG) PER UNIT SC SCH (09:20)
[2016-07-01 09:34] LABS: ALBUMIN 2.7 GM/DL (3.2-5.2); PHOSPHORUS LEVEL 2.6 MG/DL (2.5-4.9)
--- NOTE | 2016-07-01 10:46 | ECHO ---
DATE OF PROCEDURE: 06/30/2016 REFERRING PHYSICIAN: Jannette Dick MD PATIENT LOCATION: Room 3220 REASON FOR ECHOCARDIOGRAM: Edema. 2D MEASUREMENTS: IVS: 1.1 cm LV: 5.2 cm LVPW: 1.1 cm LA: 4.2 cm Aorta: 2.9 cm IVC: 1.3 cm DOPPLER MEASUREMENTS: Peak velocity across the aortic valve: 1.7 m/s Peak velocity across the LVOT: 1.1 m/s Mitral E: 0.81, Mitral A: 0.95, with a ratio of 0.9 Maximum tricuspid valve velocity: 2.1 m/s 2D COMMENTS: 1. Normal left ventricular size with subjectively a mildly increased left ventricular wall thickness. Left ventricular systolic function is normal, estimated at 60% to 65%. 2. Mildly enlarged left atrium. Normal right atrium and right ventricle noted in limited views. 3. Normal aortic root. 4. The atrial septum appeared to be normal without evidence of defect or shunt. 5. No pericardial effusion seen. 6. Minimally calcified aortic valve with normal leaflet excursion. Normal mitral valve, tricuspid valve and pulmonic valve. The proximal pulmonary artery branches appeared to be normal in isze. 7. The inferior vena cava was normal in size, central venous pressure is most likely normal. DOPPLER: It detects trace mitral regurgitation and trace tricuspid regurgitation. The calculated pulmonary artery systolic pressure was normal. There was a peak gradient of 11 mmHg noted across the aortic valve with a mean gradient of 6 mmHg. IMPRESSION: 1. Normal global left ventricular systolic function with probably mild concentric left ventricular hypertrophy. There are features of left ventricular diastolic dysfunction manifested by abnormal relaxation. 2. Aortic valve sclerosis with trivial aortic stenosis, but aortic regurgitation. 3. Mildly enlarged left atrium with trace mitral regurgitation. The dilated left atrium is most likely related to underlying left ventricular diastolic dysfunction because there was no significant mitral regurgitation. 4. Trace tricuspid regurgitation with a normal calculated pulmonary artery systolic pressure.
--- NOTE | 2016-07-01 19:02 | DS.PDOC ---
Discharge Summary General Date of Admission Jun 30, 2016 at 15:35 Date of Discharge Jul 01, 2016 at 12:15 Primary Care Physician: Kim Florez Attending Physician: MIGUEL SEPULVEDA MD Specialist/Consultants Involve: TC ADKINS MD Specialist/Consultants Involve Nephrology Discharge Summary PROCEDURES PERFORMED DURING STAY: None ADMITTING DIAGNOSES: 1. Hypotension. 2. Acute on chronic renal failure. 3. History of hypertension. 4. Hyperlipidemia. 5. Atrial fibrillation, rate controlled on Coumadin. 6. Diabetes with diabetic neuropathy. 7. Neuropathic pain from shingles. 8. Hypothyroidism. 9. Gout. DISCHARGE DIAGNOSES: 1. Hypotension 2. Acute on chronic renal failure COMPLICATIONS/CHIEF COMPLAINT: Hypotension. HISTORY OF PRESENT ILLNESS: Ms. Ojeda is a pleasant 80-year-old female who presents to the emergency department accompanied with her family, concerned for a fall after having a bowel movement earlier today and felt that her legs were weak and just gave out underneath her. She denies loss of consciousness, is unsure, however, if she had hit her head or not but denies any headache, lightheadedness, dizziness, blurry vision or double vision and states again that she felt that her legs had just "buckled" underneath her. She did have a loose bowel movement today, but she denies any previous to this. Denies any sick contacts. She did have some nausea with no vomiting. Denies any hematochezia or melena. 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 Adkins, has been making changes with her torsemide and Lasix recently, that she has noticed an increase in urine output since then and her leg swelling has decreased dramatically in the last week or so. Additionally, she has recently had shingles with postherpetic neuralgia, has had the addition of Lyrica started and she wonders if this may be a causative factor to her problems as well. HOSPITAL COURSE: Patient admitted to the progressive care unit (PCU) on telemetry. Continuous pulse oximetry. Held nephrotoxic drugs. Held diuretics secondary to orthostasis and acute on chronic renal failure. IV fluid bolus in the emergency department. Orthostasis improved. Consistent carbohydrate diet, fasting sugars before food and nightly with sliding scale insulin coverage per [facility] protocol, cycled troponins which were negative, daily INR secondary to Coumadin use, urinalysis was negative, but urine culture was positive for Escherichia coli. This was likely asymptomatic bacteriuria or possibly contamination. No need to treat with antibiotic therapy for the aforementioned conclusions. Patient remained asymptomatic. Advised patient to bring in home CPAP machine secondary to history of obstructive sleep apnea. Physical therapy evaluated and treated patient as well as documented pulse oximetry with ambulation. Deep vein thrombosis (DVT) prophylaxis with Coumadin. Patient improved throughout hospitalization and made adequate progress with physical therapy. Orthostasis improved. Patient was stable at time of discharge. DISCHARGE MEDICATIONS: Please see below. ALLERGIES: Please see below. PHYSICAL EXAMINATION ON DISCHARGE: VITAL SIGNS: Please see below. GENERAL: Pleasant female resting comfortably on the edge of the bed at time of evaluation, appears stated age, in no apparent distress HEENT: Atraumatic, normocephalic, PERRL, EOMI, oral mucosa appears pink and moist, nasal septum appears midline, nares are patent NECK: Soft, supple, trachea midline, no lymphadenopathy appreciated CARDIOVASCULAR EXAMINATION: Regular rate and rhythm, normal S1 and S2, no murmur , click, rub RESPIRATORY EXAMINATION: Clear to auscultation bilaterally, adequate inspiratory and expiratory airway excursion, no wheeze, rhonchi, crackles ABDOMINAL EXAMINATION: Round, soft, nontender, nondistended, bowel sounds appreciated EXTREMITIES: Radial pulses appreciated bilaterally, equal, symmetrical, +2/4, lower extremity pulses appreciated bilaterally, equal, symmetrical, +2/4, 1+ pitting edema noted in lower extremities bilaterally, venous stasis noted on bilateral lower extremities, peeling skin noticed on lower extremities SKIN: Venous stasis noted on bilateral lower extremities NEUROLOGICAL EXAMINATION: Cranial nerves II through XII appear grossly intact, moving all four extremities appropriately PSYCHIATRIC EXAMINATION: Mood and affect appear appropriate LABORATORY DATA: Please see below. IMAGING: Portable chest x-ray IMPRESSION: Limited evaluation due to poor inspiratory effort. Cannot exclude basilar atelectasis. CT of the abdomen and pelvis without contrast IMPRESSION: 1. No acute intra-abdominal or pelvic pathology. No free fluid. No adenopathy. 2. Bilateral renal cysts largest of which measures 7.7 cm and the left kidney. 3. Sigmoid diverticula without obvious acute diverticulitis. 4. 2 cm fat containing periumbilical hernia. 5. Acute on chronic bibasilar fibroatelectatic changes. CT of the head without contrast IMPRESSION: Age related atrophy and microvascular ischemic changes. No acute intracranial hemorrhage, infarction, or mass/mass effect. CT of the cervical spine without contrast IMPRESSION: Advanced multilevel degenerative changes. No evidence for acute cervical spine trauma/injury. PROGNOSIS: Stable ACTIVITY: Walk with walker DIET: Consistent carbohydrate DISCHARGE PLAN: See discharge instructions DISPOSITION: 01 Home, Self-Care. DISCHARGE INSTRUCTIONS: 1. Appointment with Dr. Florez in one week, call on Sunday 2. Appointment with Dr. Adkins one week, call on Sunday 3. Follow-up with pulmonology in 2-3 weeks, call on Sunday for an appointment ITEMS TO FOLLOWUP ON ON OUTPATIENT: 1. Hypotension 2. Acute kidney failure on chronic kidney disease 3. CPAP adjustment DISCHARGE CONDITION: Stable TIME SPENT ON DISCHARGE: Greater than 30 minutes. Vital Signs/I&Os Vital Signs Date Time Temp Pulse Resp B/P Pulse Ox O2 Delivery O2 Flow Rate FiO2 07/01/16 09:19 68 117/59 07/01/16 08:00 Room Air 07/01/16 08:00 97.5 18 93 07/01/16 06:00 3.0 I&O- Last 24 Hours up to 6 AM 07/01/16 06:00 Intake Total 1020 ml Output Total 1400 ml Balance -380 ml Laboratory Data Labs 24H Laboratory Tests 2 06/30/16 21:11: Bedside Glucose (Misc Panel) 228H 07/01/16 04:29: Albumin 2.7L, Anion Gap 6L, C-Reactive Protein, Quantitative 1.72H, Blood Urea Nitrogen 44H, Creatinine 1.51H, Sodium Level 145, Potassium Level 3.6, Chloride Level 109H, Carbon Dioxide Level 30, Calcium Level 8.7L, Glomerular Filtration Rate 35.1, Magnesium Level 2.2, Phosphorus Level 2.6#, Prothromb Time International Ratio 2.68, Prothrombin Time 28.6H CBC/BMP Laboratory Tests 07/01/16 04:29 Calcium Level 8.7 L, Red Blood Count 3.71 L, Mean Corpuscular Volume 98.3 H, Mean Corpuscular Hemoglobin 32.4, Mean Corpuscular Hemoglobin Concent 33.0, Red Cell Distribution Width 12.6 FSBS Laboratory Tests Test 06/30/16 21:11 Range/Units Bedside Glucose (Misc Panel) 228 83-110 MG/DL Microbiology Microbiology 06/29/16 Blood Culture - Preliminary, Resulted No growth after 24 hours . All specim... 06/29/16 Blood Culture - Preliminary, Resulted No growth after 24 hours . All specim... 06/29/16 Influenza Virus Type A Antigen - Final, Complete 06/29/16 Influenza Virus Type B Antigen - Final, Complete 06/29/16 Urine Culture - Final, Complete Escherichia Coli Discharge Medications Scheduled (Fish Oil 1200 mg) 1 Cap Cap 1 CAP PO BID (Reported) (Dorzolamide HCl/Timolol M 22.3-6.8 mg/ml) 1 Teresa Teresa 1 DROP OU BID (Reported) Allopurinol (Allopurinol) 100 Mg Tab 100 MG PO DAILY (Reported) Bimatoprost (Lumigan) 50 Drop/2.5 Ml Teresa 1 DROP OU QHS (Reported) Calcitriol (Calcitriol) 0.25 Mcg Cap 0.25 MCG PO 3XW (Reported) MON,WED,FRI Calcium/Vitamin D (Calcium + D3 600-200 mg-Unit) 1 Tab Tab 1 TAB PO DAILY ( Reported) Carvedilol (Carvedilol) 12.5 Mg Tab 12.5 MG PO BID (Reported) Duloxetine Hcl (Duloxetine HCl) 60 Mg Cap 60 MG PO BID (Reported) Fosinopril Sodium (Fosinopril Sodium) 40 Mg Tab 40 MG PO DAILY (Reported) Gabapentin (Gabapentin) 800 Mg Tab 800 MG PO QHS (Reported) Insulin Aspart (Novolog Flexpen) 100 Unit/Ml Inj 10 UNITS SC QAM (Reported) TAKES BEFORE BREAKFAST, CURRENTLY ADJUSTING DOSE WITH MD Insulin Aspart (Novolog Flexpen) 100 Unit/Ml Inj 18 UNITS SC QPM (Reported) TAKES BEFORE DINNER Insulin Glargine (Lantus) 1 Units/0.01 Ml Susp 40 UNITS SC BID (Reported) Levothyroxine Sodium (Synthroid) 112 Mcg Tab 112 MCG PO QAM (Reported) Magnesium Chloride (Mag64) 64 Mg Tabcr 128 MG PO BID (Reported) Pregabalin (Lyrica) 75 Mg Cap 75 MG PO TID (Reported) Simvastatin - High Dose (Zocor) 40 Mg Tab 40 MG PO QHS (Reported) Warfarin Sod (Coumadin) 5 Mg Tab 5 MG PO DAILY (Reported) Scheduled PRN Acetaminophen/Codeine (Tylenol/Codeine #3 300-30 mg) 1 Tab Tab 1 TAB PO QID PRN PRN PAIN (Reported) Allergies Coded Allergies: Tramadol (Verified Allergy, Intermediate, HIVES, 07/02/12) Quinolones (Verified Adverse Reaction, Severe, REDUCES BLOOD SUGAR DRASTICALLY, 07/02/12) LARRY PEREZ OGME-I Jul 01, 2016 19:02
--- NOTE | 2016-07-03 10:11 | IPN ---
DATE: 07/01/2016 SUBJECTIVE: This is an 80-year-old female who is seen and examined at bedside. Overnight, no reported acute events. Remains in PCU and was sleeping well last night. REVIEW OF SYSTEMS: Denies any chest pain, shortness of breath, nausea, vomiting, diarrhea, constipation, fever, chills, lightheadedness, dizziness. OBJECTIVE: VITAL SIGNS: Blood pressure 117/59, heart rate 68, temperature 97.5, respiration rate 18, pulse oximetry 93% on room air. Intake and output last 24 hours 970 in and 1675. Net negative of 705. No bowel movements since admission. Weight is documented at 101 kg today, yesterday it was 105 kg, question accuracy. PHYSICAL EXAMINATION: GENERAL: The patient is sitting in bed, comfortable, no acute distress. She is alert, awake, oriented times three. Pleasant, cooperative. HEENT: Normocephalic, atraumatic. EYES: Extraocular movements intact. NECK: Supple. Trachea is midline. Large neck, difficult to appreciated any jugular venous distention (JVD). CHEST: Symmetric chest rise. No accessory muscle use. Breath sounds were diminished bilaterally but clear sounding. HEART: Regular rate and rhythm with normal S1, S2. Did not appreciate murmurs, rub, or gallops. ABDOMEN: Obese, but nontender, nondistended. Bowel sounds present. No guarding. No rebound. Difficult to appreciate organomegaly secondary to body habitus. EXTREMITIES: No pedal edema. Pedal pulses present, but diminished bilaterally. She has chronic venous stasis changes, which might have been thought to be edema by her . PSYCHIATRIC: She is pleasant, cooperative. Normal affect. NEUROLOGICAL: No focal deficits. Alert, awake, oriented times three. SKIN: She has chronic venous stasis changes and blister as mentioned. LABORATORY DATA: WBC 4.6, hemoglobin 12, hematocrit 36.4, platelets 196. Sodium 145, potassium 3.6, chloride 109, carbon dioxide 30, BUN 44, creatinine 1.51. Glucose 312. Calcium 8,7, phosphorous 2.6, magnesium 2.2. CRP 1.72, albumin 2.7, INR 2.68. Urine: Random creatinine is 87.5. Random sodium is 22. Echocardiogram performed yesterday showed normal global left ventricular systolic function with mild concentric left ventricular hypertrophy. There is left ventricular systolic dysfunction with abnormal relaxation, abnormal vascular sclerosis with triple aortic stenosis, but no regurgitation. IVC size was normal with central venous pressure (CVP) most likely normal. MEDICATIONS: Reviewed. No new medications were added yesterday. IMPRESSION: Mrs. Ojeda is an 80-year-old female with history of baseline chronic kidney disease (CKD), III to IV, atrial fibrillation, hypertension, JOSE, not on home CPAP, presented with weakness and fall. Found to have dehydration which led to acute renal failure. PLAN: 1. Acute on chronic renal disease. Her baseline is III to IV CKD. Her worsening renal function is likely secondary to dehydration. Her FENa is calculated to be 0.31. Her echocardiogram has returned which showed no concern for dilated IVC. Therefore recommend continuing holding diuretic at this time. Her lower extremity changes is not secondary to edema, but chronic venous stasis changes at the time of this evaluation. 2. Edema. She does not appear edematous today on physical examination. We have recommended primary team to hold diuretic as mentioned above. She should also continue holding her angiotensin-converting enzyme (JOE) inhibitor as well until reevaluation outpatient. Her edema is multifactorial from her underlying CKD, varicose veins and atrial fibrillation. Recommend continue leg elevation and compression stockings even after discharge. 3. Hypernatremia, secondary to normal saline administration. Her level has normalized after holding IV fluids. 4. Orthostatic hypotension. Believed to be due to dehydration which has since resolved. 5. Atrial fibrillation. She is on Coreg and Coumadin. INR is therapeutic. 6. Hypertension. She should continue with her beta jessica which is also for her atrial fibrillation, but recommend continue holding JOE inhibitor and torsemide. From a renal standpoint, the patient can be discharged whenever cleared by primary team. Case discussed with Dr. Dick. My preceptor for this patient encounter was Dr. Silva. The preceptor was physically present in the building during the encounter and was fully available. As needed, all aspects of the patient interview, examination, medical decision making process, and medical care plan development were reviewed and approved by the preceptor. The preceptor is aware and concurs with the plan as stated in the body of this note and will attest to such by his/her cosignature. LILIYA
== END 2016-07-01 12:15 | disposition home or self-care (01) | DRG 683 ==
LOC: M ED 18:51 → M ED INP 19:19 → M PCU 22:20 → OBSVTOIN 06-30 15:35
PROVIDERS: ADMIT Hospitalist; ATTEND Hospitalist
DX: N17.9 Acute kidney failure, unspecified (principal); B02.29 Other postherpetic nervous system involvement; E87.0 Hyperosmolality and hypernatremia; I95.1 Orthostatic hypotension; I13.10 Hypertensive heart and chronic kidney disease without heart failure, with stage 1 through stage 4 chronic kidney disease, or unspecified chronic kidney disease; E78.5 Hyperlipidemia, unspecified; I48.91 Unspecified atrial fibrillation; E03.9 Hypothyroidism, unspecified; M10.9 Gout, unspecified; I83.893 Varicose veins of bilateral lower extremities with other complications; N18.4 Chronic kidney disease, stage 4 (severe); M54.5 Low back pain; E11.40 Type 2 diabetes mellitus with diabetic neuropathy, unspecified; M54.2 Cervicalgia; E66.9 Obesity, unspecified; H40.9 Unspecified glaucoma; G47.33 Obstructive sleep apnea (adult) (pediatric); Z99.89 Dependence on other enabling machines and devices; Z79.4 Long term (current) use of insulin; Z88.5 Allergy status to narcotic agent; Z88.1 Allergy status to other antibiotic agents; Z90.49 Acquired absence of other specified parts of digestive tract; Z79.01 Long term (current) use of anticoagulants

== ENCOUNTER → 2016-08-01 | Outpatient (REF) | payer MEDICARE ==
[~2016-08-01] MED LIST changes: +ALLO100T PO; +ALLO10TA PO; +BIMA01SOL OU; +CALC1CAP31 PO; +CALC600T57 PO; +CALC600T7 PO; +CARV12.5 PO; +COUM1TAB17 PO; +CYMB60CA3 PO; +DORZ2SOL5 OU; +DULO1CAP3 PO; +DULO30CA PO; +FISH5CAP PO; +FOSI40TA PO; +GABA-283 PO; +GABA800T PO; +LEVO112T2 PO; +LYRI75CA PO; +MAGN64TASA PO; +NOVOINJ3 SC; +ROCA0.25 PO; +SYNT112T2 PO; +TORS20TA2 PO; +TYLETAB14 PO; +ZOCO40TA PO
[2016-08-27 07:13] LABS: INR 1.9
== END ==
LOC: SKLAB4 08:39
PROVIDERS: ATTEND Internal Medicine
DX: Z00.00 Encounter for general adult medical examination without abnormal findings (principal)

== ENCOUNTER → 2016-08-10 | Outpatient (REF) | payer MEDICARE ==
[2016-08-10 14:28] LABS: INR 2.81
== END ==
LOC: M LAB REF 13:20
PROVIDERS: ATTEND Internal Medicine
DX: Z01.818 Encounter for other preprocedural examination (principal); M17.11 Unilateral primary osteoarthritis, right knee; I48.91 Unspecified atrial fibrillation

== ENCOUNTER → 2016-08-24 | Outpatient (REF) | LOC: SKLAB4 14:52 | PROVIDERS: ATTEND Internal Medicine | DX: G47.00 Insomnia, unspecified (principal) ==

== ENCOUNTER → 2016-08-25 | Outpatient (REF) | payer MEDICARE ==
[2016-08-25 07:21] LABS: INR 1.68
[2016-08-25 19:56] LABS: MEAN CORPUSCULAR HEMOGLOBIN 32.7 pg (27.0-33.0); MEAN CORPUSCULAR HGB CONC 33.4 g/dl (32.0-36.5); MEAN CORPUSCULAR VOLUME 97.9 fl (80.0-96.0); RED CELL DISTRIBUTION WIDTH 13.1 % (11.5-14.5); WHITE BLOOD COUNT 6.5 K/mm3 (4.0-10.0)
== END ==
LOC: SKLAB4 19:16
PROVIDERS: ATTEND Internal Medicine
DX: R50.9 Fever, unspecified (principal); Z79.01 Long term (current) use of anticoagulants

== ENCOUNTER → 2016-08-26 | Outpatient (REF) | payer MEDICARE ==
[2016-08-26 07:06] LABS: INR 1.89
== END ==
LOC: SKLAB4 08:40
PROVIDERS: ATTEND Internal Medicine
DX: Z00.00 Encounter for general adult medical examination without abnormal findings (principal)

== ENCOUNTER → 2016-08-29 | Outpatient (REF) | payer MEDICARE ==
[2016-08-28 06:58] LABS: INR 1.76
== END ==
LOC: SKLAB4 08:38
PROVIDERS: ATTEND Internal Medicine
DX: Z00.00 Encounter for general adult medical examination without abnormal findings (principal)

== ENCOUNTER → 2016-08-29 | Outpatient (REF) | payer MEDICARE ==
[2016-08-29 07:53] LABS: INR 1.89
== END ==
LOC: SKLAB4 11:48
PROVIDERS: ATTEND Internal Medicine
DX: I48.91 Unspecified atrial fibrillation (principal)

== ENCOUNTER → 2016-08-30 | Outpatient (REF) ==
[2016-08-30 07:12] LABS: INR 1.88
== END ==
LOC: SKLAB4 08:35
PROVIDERS: ATTEND Internal Medicine
DX: I48.91 Unspecified atrial fibrillation (principal)

== ENCOUNTER → 2016-08-31 | Outpatient (REF) | LOC: SKLAB4 11:46 | PROVIDERS: ATTEND Internal Medicine | DX: I48.91 Unspecified atrial fibrillation (principal); Z53.9 Procedure and treatment not carried out, unspecified reason ==

== ENCOUNTER → 2016-09-01 | Outpatient (REF) | LOC: SKLAB4 13:37 | PROVIDERS: ATTEND Internal Medicine | DX: Z79.01 Long term (current) use of anticoagulants (principal) ==

== ENCOUNTER → 2016-09-04 | Outpatient (REF) ==
[2016-09-04 08:19] LABS: INR 2.18
== END ==
LOC: SKLAB4 10:52
PROVIDERS: ATTEND Internal Medicine
DX: Z79.01 Long term (current) use of anticoagulants (principal); I48.91 Unspecified atrial fibrillation

== ENCOUNTER → 2016-10-05 | Outpatient (REF) | payer MEDICARE | LOC: M LAB REF 17:40 | PROVIDERS: ATTEND Podiatrist | DX: L03.116 Cellulitis of left lower limb (principal) ==

== ENCOUNTER → 2016-11-30 | Outpatient (REF) | payer MEDICARE ==
[2016-11-30 19:49] LABS: INR 4.55
== END ==
LOC: M LAB REF 15:04
PROVIDERS: ATTEND Internal Medicine
DX: Z79.01 Long term (current) use of anticoagulants (principal)

== ENCOUNTER → 2016-12-03 | Outpatient (REF) | payer MEDICARE ==
[2016-12-03 12:00] LABS: INR 2.07
== END ==
LOC: M LAB REF 11:32
PROVIDERS: ATTEND Internal Medicine
DX: Z79.899 Other long term (current) drug therapy (principal)

== ENCOUNTER → 2017-04-15 | Outpatient (REF) | payer MEDICARE, BC ==
[2017-04-15 09:30] LABS: BASO % 0.9 % (0.0-1.0); EOS # 0.6 10^3/uL (0.0-0.50); EOS % 12.3 % (0.0-3.0); HEMATOCRIT 33.3 % (36.0-47.0); HEMOGLOBIN 11.1 g/dl (12.0-16.0); IMMATURE GRANULOCYTE % 0.4 % (0-0); LYMPH # 0.8 10^3/uL (1.5-4.5); LYMPH % 17.3 % (24.0-44.0); MEAN CORPUSCULAR HEMOGLOBIN 32.8 pg (27.0-33.0); MEAN CORPUSCULAR HGB CONC 33.3 g/dl (32.0-36.5); MEAN CORPUSCULAR VOLUME 98.5 fl (80.0-96.0); MONO # 0.8 10^3/uL (0.0-0.8); MONO % 16.4 % (0.0-5.0); NEUTROPHILS # 2.4 10^3/uL (1.8-7.7); NEUTROPHILS % 52.7 % (36.0-66.0); PLATELET COUNT, AUTOMATED 205 10^3/uL (150-450); RED BLOOD COUNT 3.38 10^6/uL (4.00-5.40); RED CELL DISTRIBUTION WIDTH 12.9 % (11.5-14.5); WHITE BLOOD COUNT 4.6 10^3/uL (4.0-10.0)
[2017-04-15 09:51] LABS: ERYTHROCYTE SEDIMENTATION RATE 60 mm/hr (0-30)
[2017-04-15 10:14] LABS: C REACTIVE PROTEIN QUANTITATIV 9.34 MG/DL (0.00-0.30)
== END ==
DX: I48.91 Unspecified atrial fibrillation (principal)
CPT/HCPCS: 86140

== ENCOUNTER → 2017-04-17 | Outpatient (REF) ==
[2017-04-17 11:29] LABS: HEMATOCRIT 34.5 % (36.0-47.0); HEMOGLOBIN 11.2 g/dl (12.0-16.0); MEAN CORPUSCULAR HEMOGLOBIN 32.2 pg (27.0-33.0); MEAN CORPUSCULAR HGB CONC 32.5 g/dl (32.0-36.5); MEAN CORPUSCULAR VOLUME 99.1 fl (80.0-96.0); PLATELET COUNT, AUTOMATED 326 10^3/uL (150-450); RED BLOOD COUNT 3.48 10^6/uL (4.00-5.40); RED CELL DISTRIBUTION WIDTH 13.1 % (11.5-14.5); WHITE BLOOD COUNT 6.8 10^3/uL (4.0-10.0)
[2017-04-17 12:14] LABS: ANION GAP 7 MEQ/L (8-16); BLOOD UREA NITROGEN 35 MG/DL (7-18); CALCIUM LEVEL 8.9 MG/DL (8.8-10.2); CARBON DIOXIDE LEVEL 32 MEQ/L (21-32); CHLORIDE LEVEL 100 MEQ/L (98-107); CREATININE FOR GFR 1.38 MG/DL (0.55-1.02); GLOMERULAR FILTRATION RATE 38.9 (>32); GLUCOSE, FASTING 221 MG/DL (83-110); MAGNESIUM LEVEL 1.9 MG/DL (1.8-2.4); POTASSIUM SERUM 4.2 MEQ/L (3.5-5.1); SODIUM LEVEL 139 MEQ/L (136-145)
== END ==
DX: I50.9 Heart failure, unspecified (principal)

== ENCOUNTER 2017-08-13 21:31 | Inpatient (IN) | payer MEDICARE, BC ==
[2017-08-13 22:31] LABS: BASO # 0.1 10^3/uL (0.0-0.2); BASO % 0.4 % (0.0-1.0); EOS # 0.3 10^3/uL (0.0-0.50); EOS % 2.2 % (0.0-3.0); HEMATOCRIT 38.9 % (36.0-47.0); HEMOGLOBIN 13.1 g/dl (12.0-15.5); IMMATURE GRANULOCYTE % 0.6 % (0-3.0); LYMPH # 1.2 10^3/uL (1.5-4.5); LYMPH % 9.5 % (24.0-44.0); MEAN CORPUSCULAR HEMOGLOBIN 32.9 pg (27.0-33.0); MEAN CORPUSCULAR HGB CONC 33.7 g/dl (32.0-36.5); MEAN CORPUSCULAR VOLUME 97.7 fl (80.0-96.0); MONO # 1.5 10^3/uL (0.0-0.8); MONO % 11.8 % (0.0-5.0); NEUTROPHILS # 9.3 10^3/uL (1.8-7.7); NEUTROPHILS % 75.5 % (36.0-66.0); PLATELET COUNT, AUTOMATED 189 10^3/uL (150-450); RED BLOOD COUNT 3.98 10^6/uL (4.00-5.40); RED CELL DISTRIBUTION WIDTH 13.2 % (11.5-14.5); WHITE BLOOD COUNT 12.3 10^3/uL (4.0-10.0)
[2017-08-13] MEDS: NS 500 ML IV (22:31)
[2017-08-13] MEDS: ACETAMINOPHEN TAB 650MG DOSE (2X325MG) PO (22:31)
[2017-08-13 22:41] LABS: ALBUMIN 3.4 GM/DL (3.2-5.2); ALBUMIN/GLOBULIN RATIO 1.17 (1.00-1.93); ALKALINE PHOSPHATASE 105 U/L (45-117); ALT/SGPT 21 U/L (12-78); ANION GAP 7 MEQ/L (8-16); AST/SGOT 14 U/L (7-37); BILIRUBIN,DIRECT 0.2 MG/DL (0.0-0.2); BILIRUBIN,TOTAL 0.6 MG/DL (0.2-1.0); BLOOD UREA NITROGEN 36 MG/DL (7-18); CALCIUM LEVEL 8.6 MG/DL (8.8-10.2); CARBON DIOXIDE LEVEL 28 MEQ/L (21-32); CHLORIDE LEVEL 106 MEQ/L (98-107); CREATININE FOR GFR 1.66 MG/DL (0.55-1.30); GLOMERULAR FILTRATION RATE 31.4 (>32); GLUCOSE, FASTING 228 MG/DL (70-100); SODIUM LEVEL 141 MEQ/L (136-145); TOTAL PROTEIN 6.3 GM/DL (6.4-8.2)
[2017-08-13 23:01] LABS: APPEARANCE, URINE CLEAR (CLEAR); BACTERIA, URINE AUTO NEGATIVE (NEGATIVE); BILIRUBIN, URINE AUTO NEGATIVE (NEGATIVE); BLOOD, URINE BLOOD NEGATIVE (NEGATIVE); COLOR, URINE YELLOW (YELLOW); GLUCOSE, URINE (UA) AUTO 2+ mg/dL (NEGATIVE); KETONE, URINE AUTO NEGATIVE (NEGATIVE); LEUKOCYTE ESTERASE, URINE AUTO NEGATIVE (NEGATIVE); NITRITE, URINE AUTO NEGATIVE (NEGATIVE); PROTEIN, URINE AUTO NEGATIVE (NEGATIVE); RBC, URINE AUTO 1 /HPF (0-3); SPECIFIC GRAVITY URINE AUTO 1.018 (1.002-1.035); SQUAMOUS EPITHELIAL CELL UR AU 1 /HPF (0-6); UROBILINOGEN, URINE AUTO 0.2 mg/dL (0.0-2.0); WBC, URINE AUTO 0 /HPF (0-3)
[2017-08-13 23:04] LABS: LACTIC ACID SEPSIS PROTOCOL 2.1 MMOL/L (0.4-2.0)
[2017-08-13 23:05] LABS: INR 2.24; PROTHROMBIN TIME 25.6 SECONDS (12.4-14.5)
[2017-08-13] MEDS: GASTROGRAFIN SOLUTION 30ML PO (23:30)
[2017-08-14] MEDS: GASTROGRAFIN SOLUTION 30ML PO (00:04)
[2017-08-14] MEDS: metroNIDAZOLE 750 MG in APPROPRIATE DILUENT 1 EA IV (01:47)
[2017-08-14] MEDS ORDERED: GLUCAGON FOR INJ 1 MG VIAL (J1610) SC (02:30)
[2017-08-14] MEDS ORDERED: GLUCOSE 4 GM CHEW TABLET PO (02:30)
[2017-08-14] MEDS ORDERED: ACETAMINOPHEN TAB 650MG DOSE (2X325MG) PO (02:30)
[2017-08-14] MEDS ORDERED: ONDANSETRON 4MG/2ML VIAL (J2405) IV (02:30)
[2017-08-14] MEDS ORDERED: DEXTROSE 50% 50 ML SYRINGE IV (02:30)
[2017-08-14] MEDS: AMPICILLIN SOD/SULBACTAM SOD 3 GM in D5W MINI-BAG PLUS 100 ML IV (02:53)
[2017-08-14] MEDS: NS 500 ML IV (02:57)
[2017-08-14] MEDS: cefTRIAXone SOD 1 GM in D5W MINI-BAG PLUS 50 ML IV (05:04)
[2017-08-14] MEDS: LEVOTHYROXINE 112MCG TABLET (0.112MG) PO (05:30)
[2017-08-14 05:35] LABS: BASO % 0.4 % (0.0-1.0); EOS # 0.2 10^3/uL (0.0-0.50); EOS % 2.2 % (0.0-3.0); HEMATOCRIT 35.4 % (36.0-47.0); HEMOGLOBIN 11.7 g/dl (12.0-15.5); IMMATURE GRANULOCYTE % 0.5 % (0-3.0); LYMPH # 1.4 10^3/uL (1.5-4.5); LYMPH % 14.5 % (24.0-44.0); MEAN CORPUSCULAR HEMOGLOBIN 32.3 pg (27.0-33.0); MEAN CORPUSCULAR HGB CONC 33.1 g/dl (32.0-36.5); MEAN CORPUSCULAR VOLUME 97.8 fl (80.0-96.0); MONO # 1.1 10^3/uL (0.0-0.8); MONO % 11.2 % (0.0-5.0); NEUTROPHILS % 71.2 % (36.0-66.0); PLATELET COUNT, AUTOMATED 168 10^3/uL (150-450); RED BLOOD COUNT 3.62 10^6/uL (4.00-5.40); RED CELL DISTRIBUTION WIDTH 13.2 % (11.5-14.5); WHITE BLOOD COUNT 9.8 10^3/uL (4.0-10.0)
[2017-08-14 05:52] LABS: INR 2.46; PROTHROMBIN TIME 27.6 SECONDS (12.4-14.5)
[2017-08-14 06:01] LABS: ALBUMIN 2.8 GM/DL (3.2-5.2); ALBUMIN/GLOBULIN RATIO 0.88 (1.00-1.93); ALKALINE PHOSPHATASE 90 U/L (45-117); ALT/SGPT 19 U/L (12-78); ANION GAP 6 MEQ/L (8-16); AST/SGOT 12 U/L (7-37); BILIRUBIN,TOTAL 0.6 MG/DL (0.2-1.0); BLOOD UREA NITROGEN 35 MG/DL (7-18); CALCIUM LEVEL 8.3 MG/DL (8.8-10.2); CARBON DIOXIDE LEVEL 26 MEQ/L (21-32); CHLORIDE LEVEL 109 MEQ/L (98-107); CREATININE FOR GFR 1.39 MG/DL (0.55-1.30); GLOMERULAR FILTRATION RATE 38.5 (>32); GLUCOSE, FASTING 262 MG/DL (70-100); MAGNESIUM LEVEL 2.1 MG/DL (1.8-2.4); POTASSIUM SERUM 3.6 MEQ/L (3.5-5.1); SODIUM LEVEL 141 MEQ/L (136-145)
[2017-08-14] MEDS: HumaLOG INSULIN (NovoLOG) PER UNIT SC ×5 (07:30→21:40)
[2017-08-14] MEDS: ALLOPURINOL 100 MG TAB PO ×2 (08:40→21:33)
[2017-08-14] MEDS: CARVedilol 6.25 MG TAB PO ×2 (08:40→21:33)
[2017-08-14] MEDS: LEVEMIR (INSULIN DETEMIR) 1 UNITS/0.01ML SC ×2 (08:41→21:33)
[2017-08-14] MEDS: COSOPT OCUMETER PLUS 10ML (DORZOLAMIDE/TIMOLOL) OU ×2 (08:42→21:33)
[2017-08-14] MEDS: metroNIDAZOLE 500 MG in APPROPRIATE DILUENT 1 EA IV ×2 (08:42→16:16)
[2017-08-14 16:55] LABS: BEDSIDE GLUCOSE 227 MG/DL (83-110)
[2017-08-14 17:01] LABS: BEDSIDE GLUCOSE 271 MG/DL (83-110)
[2017-08-14 21:29] LABS: BEDSIDE GLUCOSE 190 MG/DL (83-110)
[2017-08-14] MEDS: DULoxetine 30 MG CAP (CYMBALTA) PO (21:33)
[2017-08-14] MEDS: GABAPENTIN 400 MG CAP PO (21:33)
[2017-08-15] MEDS: LEVOTHYROXINE 112MCG TABLET (0.112MG) PO (05:33)
[2017-08-15] MEDS: cefTRIAXone SOD 1 GM in D5W MINI-BAG PLUS 50 ML IV (05:33)
[2017-08-15 06:03] LABS: BASO # 0.1 10^3/uL (0.0-0.2); BASO % 0.8 % (0.0-1.0); EOS # 0.5 10^3/uL (0.0-0.50); EOS % 7.1 % (0.0-3.0); HEMATOCRIT 38.6 % (36.0-47.0); HEMOGLOBIN 12.7 g/dl (12.0-15.5); IMMATURE GRANULOCYTE % 0.1 % (0-3.0); LYMPH % 14.5 % (24.0-44.0); MEAN CORPUSCULAR HEMOGLOBIN 32.8 pg (27.0-33.0); MEAN CORPUSCULAR HGB CONC 32.9 g/dl (32.0-36.5); MEAN CORPUSCULAR VOLUME 99.7 fl (80.0-96.0); MONO # 0.8 10^3/uL (0.0-0.8); MONO % 11.7 % (0.0-5.0); NEUTROPHILS # 4.7 10^3/uL (1.8-7.7); NEUTROPHILS % 65.8 % (36.0-66.0); PLATELET COUNT, AUTOMATED 210 10^3/uL (150-450); RED BLOOD COUNT 3.87 10^6/uL (4.00-5.40); RED CELL DISTRIBUTION WIDTH 13.1 % (11.5-14.5); WHITE BLOOD COUNT 7.2 10^3/uL (4.0-10.0)
[2017-08-15 06:14] LABS: PROTHROMBIN TIME 23.4 SECONDS (12.4-14.5)
[2017-08-15] MEDS: HumaLOG INSULIN (NovoLOG) PER UNIT SC ×4 (07:30→20:56)
[2017-08-15 07:34] LABS: ALBUMIN 2.8 GM/DL (3.2-5.2); ALKALINE PHOSPHATASE 78 U/L (45-117); ALT/SGPT 21 U/L (12-78); ANION GAP 4 MEQ/L (8-16); AST/SGOT 16 U/L (7-37); BILIRUBIN,TOTAL 0.4 MG/DL (0.2-1.0); BLOOD UREA NITROGEN 19 MG/DL (7-18); CALCIUM LEVEL 8.5 MG/DL (8.8-10.2); CARBON DIOXIDE LEVEL 28 MEQ/L (21-32); CHLORIDE LEVEL 115 MEQ/L (98-107); CREATININE FOR GFR 0.94 MG/DL (0.55-1.30); GLOMERULAR FILTRATION RATE > 60.0 (>32); GLUCOSE, FASTING 88 MG/DL (70-100); MAGNESIUM LEVEL 2.4 MG/DL (1.8-2.4); SODIUM LEVEL 147 MEQ/L (136-145); TOTAL PROTEIN 5.6 GM/DL (6.4-8.2)
[2017-08-15] MEDS: LEVEMIR (INSULIN DETEMIR) 1 UNITS/0.01ML SC ×3 (08:51→20:56)
[2017-08-15] MEDS: metroNIDAZOLE 500 MG in APPROPRIATE DILUENT 1 EA IV ×3 (08:53→17:23)
[2017-08-15] MEDS: COSOPT OCUMETER PLUS 10ML (DORZOLAMIDE/TIMOLOL) OU ×2 (08:53→20:58)
[2017-08-15] MEDS: ALLOPURINOL 100 MG TAB PO ×2 (08:54→20:55)
[2017-08-15] MEDS: CARVedilol 6.25 MG TAB PO ×2 (08:54→20:58)
[2017-08-15 11:55] LABS: BEDSIDE GLUCOSE 227 MG/DL (83-110)
[2017-08-15] MEDS: WARFARIN SOD 4 MG TAB PO (17:19)
[2017-08-15 17:20] LABS: BEDSIDE GLUCOSE 251 MG/DL (83-110)
[2017-08-15] MEDS: DULoxetine 30 MG CAP (CYMBALTA) PO (20:55)
[2017-08-15] MEDS: GABAPENTIN 400 MG CAP PO (20:55)
[2017-08-15 21:07] LABS: BEDSIDE GLUCOSE 284 MG/DL (83-110)
[2017-08-16] MEDS: metroNIDAZOLE 500 MG in APPROPRIATE DILUENT 1 EA IV ×2 (00:46→08:04)
[2017-08-16] MEDS: cefTRIAXone SOD 1 GM in D5W MINI-BAG PLUS 50 ML IV (05:25)
[2017-08-16] MEDS: LEVOTHYROXINE 112MCG TABLET (0.112MG) PO (05:31)
[2017-08-16 05:49] LABS: BASO # 0.1 10^3/uL (0.0-0.2); BASO % 0.9 % (0.0-1.0); EOS # 0.5 10^3/uL (0.0-0.50); EOS % 9.2 % (0.0-3.0); HEMATOCRIT 37.2 % (36.0-47.0); HEMOGLOBIN 12.3 g/dl (12.0-15.5); IMMATURE GRANULOCYTE % 0.4 % (0-3.0); LYMPH % 18.2 % (24.0-44.0); MEAN CORPUSCULAR HEMOGLOBIN 32.6 pg (27.0-33.0); MEAN CORPUSCULAR HGB CONC 33.1 g/dl (32.0-36.5); MEAN CORPUSCULAR VOLUME 98.7 fl (80.0-96.0); MONO # 0.7 10^3/uL (0.0-0.8); MONO % 11.5 % (0.0-5.0); NEUTROPHILS # 3.4 10^3/uL (1.8-7.7); NEUTROPHILS % 59.8 % (36.0-66.0); PLATELET COUNT, AUTOMATED 205 10^3/uL (150-450); RED BLOOD COUNT 3.77 10^6/uL (4.00-5.40); RED CELL DISTRIBUTION WIDTH 12.9 % (11.5-14.5); WHITE BLOOD COUNT 5.7 10^3/uL (4.0-10.0)
[2017-08-16 05:59] LABS: INR 1.64; PROTHROMBIN TIME 19.9 SECONDS (12.4-14.5)
[2017-08-16 06:12] LABS: ALBUMIN 2.7 GM/DL (3.2-5.2); ALBUMIN/GLOBULIN RATIO 0.79 (1.00-1.93); ALKALINE PHOSPHATASE 83 U/L (45-117); ALT/SGPT 22 U/L (12-78); ANION GAP 3 MEQ/L (8-16); AST/SGOT 12 U/L (7-37); BILIRUBIN,TOTAL 0.5 MG/DL (0.2-1.0); BLOOD UREA NITROGEN 19 MG/DL (7-18); CARBON DIOXIDE LEVEL 30 MEQ/L (21-32); CHLORIDE LEVEL 111 MEQ/L (98-107); CREATININE FOR GFR 1.06 MG/DL (0.55-1.30); GLOMERULAR FILTRATION RATE 52.7 (>32); GLUCOSE, FASTING 192 MG/DL (70-100); MAGNESIUM LEVEL 2.3 MG/DL (1.8-2.4); SODIUM LEVEL 144 MEQ/L (136-145); TOTAL PROTEIN 6.1 GM/DL (6.4-8.2)
[2017-08-16] MEDS: LEVEMIR (INSULIN DETEMIR) 1 UNITS/0.01ML SC (08:04)
[2017-08-16] MEDS: HumaLOG INSULIN (NovoLOG) PER UNIT SC (08:04)
[2017-08-16] MEDS: CARVedilol 6.25 MG TAB PO (08:05)
[2017-08-16] MEDS: ALLOPURINOL 100 MG TAB PO (08:05)
[2017-08-16] MEDS: COSOPT OCUMETER PLUS 10ML (DORZOLAMIDE/TIMOLOL) OU (08:05)
[2017-08-16 11:44] LABS: BEDSIDE GLUCOSE 327 MG/DL (83-110)
[2017-08-16] MEDS ORDERED: WARFARIN SOD 3 MG TAB PO (17:00)
== END 2017-08-16 13:15 | disposition home or self-care (01) | DRG 872 ==
LOC: M ED INP 08-14 02:29 → M MSPAV 08-15 21:18 → M ED 21:31 → M PCU 08-14 04:13
DX: A41.9 Sepsis, unspecified organism (principal); K57.92 Diverticulitis of intestine, part unspecified, without perforation or abscess without bleeding; E87.2 Acidosis; N17.9 Acute kidney failure, unspecified; R65.20 Severe sepsis without septic shock; I12.9 Hypertensive chronic kidney disease with stage 1 through stage 4 chronic kidney disease, or unspecified chronic kidney disease; E11.51 Type 2 diabetes mellitus with diabetic peripheral angiopathy without gangrene; G47.33 Obstructive sleep apnea (adult) (pediatric); I73.9 Peripheral vascular disease, unspecified; F32.9 Major depressive disorder, single episode, unspecified; I48.2 Chronic atrial fibrillation; E03.9 Hypothyroidism, unspecified; Z79.4 Long term (current) use of insulin; Z79.899 Other long term (current) drug therapy; Z88.8 Allergy status to other drugs, medicaments and biological substances; Z79.01 Long term (current) use of anticoagulants; N18.3 Chronic kidney disease, stage 3 (moderate); M54.5 Low back pain; K44.9 Diaphragmatic hernia without obstruction or gangrene

== ENCOUNTER 2017-09-13 18:09 | Emergency (ER) | payer MEDICARE ==
[2017-09-13] MEDS: CEPHALEXIN 500 MG CAP PO (19:45)
== END 2017-09-13 20:01 | disposition home or self-care (01) ==
LOC: M ED 18:09
DX: S81.801A Unspecified open wound, right lower leg, initial encounter (principal); E11.9 Type 2 diabetes mellitus without complications; X58.XXXA Exposure to other specified factors, initial encounter; Y92.89 Other specified places as the place of occurrence of the external cause; Y93.89 Activity, other specified; Y99.9 Unspecified external cause status; Z79.4 Long term (current) use of insulin; Z79.01 Long term (current) use of anticoagulants; Z79.899 Other long term (current) drug therapy; Z88.5 Allergy status to narcotic agent; Z88.8 Allergy status to other drugs, medicaments and biological substances
CPT/HCPCS: 87186

== ENCOUNTER → 2018-01-11 | Outpatient (CLI) | payer MEDICARE | LOC: M RAD 10:25 | DX: I87.2 Venous insufficiency (chronic) (peripheral) (principal); I87.312 Chronic venous hypertension (idiopathic) with ulcer of left lower extremity | CPT/HCPCS: 93970 ==

== ENCOUNTER → 2018-01-31 | Outpatient (REF) | payer MEDICARE, BC ==
[2018-01-31 19:39] LABS: HEMATOCRIT 39.1 % (36.0-47.0); HEMOGLOBIN 12.7 g/dl (12.0-15.5); MEAN CORPUSCULAR HEMOGLOBIN 32.6 pg (27.0-33.0); MEAN CORPUSCULAR HGB CONC 32.5 g/dl (32.0-36.5); MEAN CORPUSCULAR VOLUME 100.3 fl (80.0-96.0); PLATELET COUNT, AUTOMATED 283 10^3/uL (150-450); RED CELL DISTRIBUTION WIDTH 13.4 % (11.5-14.5); WHITE BLOOD COUNT 5.2 10^3/uL (4.0-10.0)
[2018-01-31 19:58] LABS: ALBUMIN 3.4 GM/DL (3.2-5.2); ALBUMIN/GLOBULIN RATIO 1.31 (1.00-1.93); ALKALINE PHOSPHATASE 103 U/L (45-117); ALT/SGPT 21 U/L (12-78); ANION GAP 4 MEQ/L (8-16); AST/SGOT 11 U/L (7-37); BILIRUBIN,TOTAL 0.4 MG/DL (0.2-1.0); BLOOD UREA NITROGEN 30 MG/DL (7-18); C REACTIVE PROTEIN QUANTITATIV 1.59 MG/DL (0.00-0.30); CALCIUM LEVEL 8.7 MG/DL (8.8-10.2); CARBON DIOXIDE LEVEL 31 MEQ/L (21-32); CHLORIDE LEVEL 105 MEQ/L (98-107); CREATININE FOR GFR 1.31 MG/DL (0.55-1.30); GLOMERULAR FILTRATION RATE 41.2 (>32); GLUCOSE, FASTING 231 MG/DL (70-100); POTASSIUM SERUM 4.2 MEQ/L (3.5-5.1); SODIUM LEVEL 140 MEQ/L (136-145)
[2018-01-31 20:06] LABS: ERYTHROCYTE SEDIMENTATION RATE 27 mm/hr (0-30)
[2018-02-07 00:07] LABS: ANTINUCLEAR ANTIBODIES DIRECT Negative (Negative); Antimyeloperxidase(MPO) Abs <9.0 U/mL (0.0-9.0); Antiproteinase 3 (PR-3) Abs <3.5 U/mL (0.0-3.5); Cytoplasmic (C-ANCA) <1:20 titer (Neg:<1:20); Perinuclear (P-ANCA) <1:20 titer (Neg:<1:20)
== END ==
LOC: M SFHCWOUN 12:11
DX: I87.311 Chronic venous hypertension (idiopathic) with ulcer of right lower extremity (principal)
CPT/HCPCS: 80053

== ENCOUNTER 2018-03-07 08:50 | Day surgery (SDC) | payer MEDICARE ==
[~2018-03-07 08:50] MED LIST changes: -/PRAV20TA; -/WARF5TA; -/WARF5TA OR; -ALLO100T PO; -ALLO10TA PO; -AZOPT EYE OU; -BIMA01SOL OU; -BYETTA; -CALC1CAP31 PO; -CALC600T57 PO; -CALC600T7 PO; -CARV12.5 PO; -COMBINATION CREAM TOP; -CORE12.5; -CORE12.5 OR; -COUM1TAB17 PO; -CYMB60CA3 PO; -DORZ2SOL5 OU; -DULO1CAP3 PO; -DULO30CA PO; -FISH5CAP PO; -FOSI40TA; -FOSI40TA OR; -FOSI40TA PO; -GABA-283 PO; -GABA800T PO; -HYDR25TA6; -HYDR25TA6 OR; -INSULANT; -INSULANT SC; -LEVO100T4 PO; -LEVO112T2 PO; -LIDO5DIS; -LYRI75CA PO; -MAGN64TASA PO; +MIDAZOLAM INJ 2 MG/2 ML VIAL (J2250) As Ordered; -NOVOINJ3 SC; -NOVOLOG FLEX PEN SC; +ONDANSETRON 4MG/2ML VIAL (J2405) As Ordered; -ROCA0.25 PO; -SIMV40TA2; -SIMV40TA2 OR; -SKEL800T5; -SKEL800T5 OR; -SYNT112T2 PO; -SYNT137T; -SYNT137T OR; -TORS20TA2 PO; -TRAVATAN EYE DROP OU; -TYLETAB14 PO; -ZOCO40TA PO; -byetta PO; +fentaNYL 100 MCG/2 ML INJECTION (J3010) As Ordered
[2018-03-07 09:29] LABS: BEDSIDE GLUCOSE 192 MG/DL (83-110)
[2018-03-07] MEDS: PHENYLEPHRINE 2.5% OPHTH SOL 2ML OS (09:41)
[2018-03-07] MEDS: PROPARACAINE 0.5% OPHTH SOL 15ML OS (09:41)
[2018-03-07] MEDS: TROPICAMIDE 1% OPHTH SOLN 2ML OS (09:41)
[2018-03-07] MEDS: OFLOXACIN 0.3 % (OCUFLOX) OPTH SOL 5ML OS (09:42)
[2018-03-07] MEDS: POVIDONE-IODINE 5% OPHTH PREP SOL 30ML As Ordered (10:08)
[2018-03-07] MEDS: BALANCED SALT IRRIGATION SOLUTION 500ML BAG (FOR OR EYE MACHINE) As Ordered (10:08)
[2018-03-07] MEDS: LIDOCAINE 0.75%/EPINEPHRINE 0.025% IN BSS 1ML SYR INTRACAMERAL (OR ONLY) As Ordered (10:09)
[2018-03-07] MEDS: CEFUROXIME 1MG/0.1ML INTRACAMERAL INJ As Ordered (10:09)
[2018-03-07] MEDS: DUOVISC (0.50ML VISCOAT/0.55ML PROVISC) OPHTH KIT As Ordered ×2 (10:09)
== END 2018-03-07 11:23 | disposition home or self-care (01) ==
LOC: M SDC 08:50
DX: H25.12 Age-related nuclear cataract, left eye (principal); H40.1120 Primary open-angle glaucoma, left eye, stage unspecified; I12.9 Hypertensive chronic kidney disease with stage 1 through stage 4 chronic kidney disease, or unspecified chronic kidney disease; I48.91 Unspecified atrial fibrillation; E78.5 Hyperlipidemia, unspecified; E03.9 Hypothyroidism, unspecified; E11.40 Type 2 diabetes mellitus with diabetic neuropathy, unspecified; S80.821D Blister (nonthermal), right lower leg, subsequent encounter; S80.822D Blister (nonthermal), left lower leg, subsequent encounter; M10.9 Gout, unspecified; N18.9 Chronic kidney disease, unspecified; G47.33 Obstructive sleep apnea (adult) (pediatric); Z88.5 Allergy status to narcotic agent; Z88.8 Allergy status to other drugs, medicaments and biological substances; Z79.899 Other long term (current) drug therapy; Z79.4 Long term (current) use of insulin; Z79.01 Long term (current) use of anticoagulants; Z78.0 Asymptomatic menopausal state; Z87.891 Personal history of nicotine dependence; Z96.653 Presence of artificial knee joint, bilateral
CPT/HCPCS: 66984

== ENCOUNTER 2018-03-14 07:03 | Day surgery (SDC) | payer MEDICARE ==
[2018-03-14] MEDS: PHENYLEPHRINE 2.5% OPHTH SOL 2ML OD (07:00)
[2018-03-14] MEDS: PROPARACAINE 0.5% OPHTH SOL 15ML OD (07:00)
[2018-03-14] MEDS: OFLOXACIN 0.3 % (OCUFLOX) OPTH SOL 5ML OD (07:00)
[2018-03-14] MEDS: TROPICAMIDE 1% OPHTH SOLN 2ML OD (07:00)
[2018-03-14 08:05] LABS: BEDSIDE GLUCOSE 214 MG/DL (83-110)
[2018-03-14] MEDS ORDERED: MIDAZOLAM INJ 2 MG/2 ML VIAL (J2250) As Ordered (08:19)
[2018-03-14] MEDS ORDERED: fentaNYL 100 MCG/2 ML INJECTION (J3010) As Ordered (08:19)
[2018-03-14] MEDS: LIDOCAINE 0.75%/EPINEPHRINE 0.025% IN BSS 1ML SYR INTRACAMERAL (OR ONLY) As Ordered (08:30)
[2018-03-14] MEDS: POVIDONE-IODINE 5% OPHTH PREP SOL 30ML As Ordered (08:30)
[2018-03-14] MEDS: DUOVISC (0.50ML VISCOAT/0.55ML PROVISC) OPHTH KIT As Ordered ×2 (08:30→08:43)
[2018-03-14] MEDS: BALANCED SALT IRRIGATION SOLUTION 500ML BAG (FOR OR EYE MACHINE) As Ordered (08:30)
[2018-03-14] MEDS: CEFUROXIME 1MG/0.1ML INTRACAMERAL INJ As Ordered (08:30)
== END 2018-03-14 09:23 | disposition home or self-care (01) ==
LOC: M SDC 07:03
DX: H25.11 Age-related nuclear cataract, right eye (principal); H40.10X2 Unspecified open-angle glaucoma, moderate stage; I48.91 Unspecified atrial fibrillation; I10 Essential (primary) hypertension; E11.40 Type 2 diabetes mellitus with diabetic neuropathy, unspecified; G47.30 Sleep apnea, unspecified; E03.9 Hypothyroidism, unspecified; M10.9 Gout, unspecified; Z87.891 Personal history of nicotine dependence; Z88.8 Allergy status to other drugs, medicaments and biological substances; Z79.4 Long term (current) use of insulin; Z79.01 Long term (current) use of anticoagulants; Z79.899 Other long term (current) drug therapy
CPT/HCPCS: 66984

== ENCOUNTER 2019-01-03 06:10 | Day surgery (SDC) | payer MEDICARE ==
[~2019-01-03] VITALS: Ht 157.5 cm; Wt 95.7 kg
[~2019-01-03 06:10] MED LIST changes: +ALLO100T PO; +ALLO10TA PO; +AUGM875T28 PO; +AZOPT EYE OU; +BIMA01SOL OU; +BYETTA; +CALC1CAP31 PO; +CALC1TAB26 PO; +CALC600T57 PO; +CALC600T7 PO; +CARV12.5 PO; +COMBINATION CREAM TOP; +CORE12.5; +CORE12.5 OR; +COUM1TAB17; +COUM1TAB17 OR; +COUM1TAB17 PO; +CYMB60CA3 PO; +DORZ2SOL5 OU; +DULO1CAP6 PO; +DULO30CA9 PO; +FISH5CAP PO; +FOSI40TA; +FOSI40TA OR; +FOSI40TA3 PO; +GABA-845 PO; +GABA800T4 PO; +HYDR25TA6; +HYDR25TA6 OR; +INSUH10VL SC; +INSULADS INJ; +INSULANT; +INSULANT SC; +KEFL500C17 PO; +LACT1TAB4 PO; +LEVO100T4 PO; +LEVO112T2 PO; +LIDO5DIS; +LIDOCAINE 1% MDV 20ML VIAL SQ PRN; +LYRI75CA PO; +MAGN64TASA PO; -MIDAZOLAM INJ 2 MG/2 ML VIAL (J2250) As Ordered; +NOVOINJ3 SC; +NOVOLOG FLEX PEN SC; -ONDANSETRON 4MG/2ML VIAL (J2405) As Ordered; +PRAV1TAB39; +ROCA0.25 PO; +SIMV40TA2; +SIMV40TA2 OR; +SKEL800T5; +SKEL800T5 OR; +SYNT112T2 PO; +SYNT137T; +SYNT137T OR; +TORS20TA2 PO; +TRAVATAN EYE DROP OU; +TYLETAB14 PO; +WARF-23 PO; +ZOCO40TA PO; +byetta PO; -fentaNYL 100 MCG/2 ML INJECTION (J3010) As Ordered
[2019-01-03 06:51] LABS: HEMATOCRIT 42.9 % (36.0-47.0); HEMOGLOBIN 14.2 g/dl (12.0-15.5); MEAN CORPUSCULAR HEMOGLOBIN 33.6 pg (27.0-33.0); MEAN CORPUSCULAR HGB CONC 33.1 g/dl (32.0-36.5); MEAN CORPUSCULAR VOLUME 101.7 fl (80.0-96.0); PLATELET COUNT, AUTOMATED 225 10^3/uL (150-450); RED BLOOD COUNT 4.22 10^6/uL (4.00-5.40); WHITE BLOOD COUNT 6.5 10^3/uL (4.0-10.0)
[2019-01-03] MEDS ORDERED: LIDOCAINE W/EPINEPHRINE 1% 20ML VIAL As Ordered ONE ×3 (06:52→08:42)
[2019-01-03] MEDS ORDERED: LR 1,000 ML IV ONE (07:00)
[2019-01-03] MEDS ORDERED: ceFAZolin SOD 2 GM in IV 1 EA IV ONE (07:00)
[2019-01-03] MEDS ORDERED: PROPOFOL 200 MG/20 ML VIAL As Ordered ONE (07:01)
[2019-01-03] MEDS ORDERED: LIDOCAINE 2% INJ 100 MG/5 ML SDV (FOR ANES.) As Ordered ONE (07:01)
[2019-01-03] MEDS ORDERED: ROCURONIUM BROMIDE 50 MG/5 ML VIAL As Ordered ONE (07:01)
[2019-01-03] MEDS ORDERED: fentaNYL 250 MCG/5 ML INJECTION (J3010) As Ordered ONE (07:02)
[2019-01-03 07:05] LABS: INR 1.29; PARTIAL THROMBOPLASTIN TIME 33.8 SECONDS (25.0-38.4); PROTHROMBIN TIME 15.8 SECONDS (11.8-14.0)
[2019-01-03] MEDS ORDERED: dexameTHASONE 4 MG/ML 1ML VIAL (J1100) As Ordered ONE (07:06)
[2019-01-03] MEDS ORDERED: ONDANSETRON 4MG/2ML VIAL (J2405) As Ordered ONE (07:06)
[2019-01-03 07:23] LABS: CALCIUM LEVEL 9.4 MG/DL (8.8-10.2); CREATININE FOR GFR 1.42 MG/DL (0.55-1.30); GLOMERULAR FILTRATION RATE 37.4 (>32); POTASSIUM SERUM 4.1 MEQ/L (3.5-5.1)
[2019-01-03] MEDS ORDERED: PROPOFOL 500 MG/50 ML VIAL As Ordered ONE (07:24)
[2019-01-03] MEDS ORDERED: HEPARIN SOD (PORCINE) 5000 UNITS/ML VIAL As Ordered ONE ×2 (08:24→08:29)
[2019-01-03] MEDS ORDERED: OXYC1TAB23 PO ×2 (09:25→09:46)
--- NOTE | 2019-01-03 09:44 | ROOPDOC ---
[facility] Report Of Operation Report of Operation DATE OF PROCEDURE: 01/03/19 PREPROCEDURE DIAGNOSES: Venous insufficiency RLE with varicose veins, cellulitis, swelling and pain. POSTPROCEDURE DIAGNOSES: Same. PROCEDURE: 1. US guided access R GSV 2. RFA ablation R GSV SURGEON: Denis Obando MD ANESTHESIA: Monitored anesthesia care INDICATION FOR PROCEDURE: Ms Ojeda is a very pleasant 83yo patient with chronic venous insufficiency of the lower extremities with varicosities, recurrent cellulitis and ulcerations, and symptoms of heaviness, aching pain, swelling. The right leg is worse than the left. She has significant reflux in the greater saphenous vein RLE, and we discussed the risks, benefits and alternatives to a radiofrequency ablation of the right greater saphenous vein, and she was agreeable to proceed. Informed consent obtained. REPORT OF OPERATION: Patient was brought to the OR in stable condition. Monitored anesthesia care and antibiotics were administered without complication. Her right groin and lower extremity were prepped and draped in a sterile fashion. A time out was performed. We accessed the GSV just below the knee with a micro needle under US guidance. A wire was passed through this access and confirmed intraluminal with US. A 7 [place] tim[place] sheath was placed and flushed with saline. The RFA catheter was advanced through the sheath into the saphenofemoral junction, and the tip was confirmed at 2cm distal to the junction with US. We then administered tumescence around the vein from knee to groin under US guidance. We then performed the radiofrequency ablation from 2cm distal to the saphenofemoral junction to our access site at the knee, and 6 cycles totals were performed. Following this, the catheter and sheath were removed and pressure was held at the access site for 5 min for good hemostasis. Sterile dressings, virgil wraps were applied. Patient tolerated this well and was taken to recovery in stable condition. ESTIMATED BLOOD LOSS: Approximately 2 mL. COMPLICATIONS: none. SPECIMENS: none. DRAINS: none. PLAN: D/c home today, light activity over the weekend. Elevate RLE above the l evel of the heart when at rest. Return to clinic next week with repeat RLE venous duplex to rule out extension of thrombus into the CFV and to see how she is doing after ablation. Rx percocet- no refills. DENIS OBANDO MD Jan 03, 2019 09:44
[2019-01-03] MEDS ORDERED: LR 1,000 ML IV SCH (09:45)
[2019-01-03] MEDS ORDERED: ONDANSETRON 4MG/2ML VIAL (J2405) IV PRN (09:45)
[2019-01-03 10:10] VITALS: BP 130/62
--- NOTE | 2019-01-03 14:20 | ROOPDOC ---
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 Ultrasound-guided access right common femoral artery 2. Aorto iliofemoral arteriogram with selection and right common femoral artery and left lower extremity runoff 3. Selection left popliteal artery arteriogram 4. 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 Stenting left SFA from origin to distal with 6 x 150 innova stent and 6 x 100 and innova stent 6. Post-dilation was 6 x 200 Erie balloon 7. Angioplasty origin of the profunda with 4 x 40 Erie balloon 8. Completion arteriograms 9. Mynx closure right common femoral artery SURGEON: Denis Obando MD ANESTHESIA: 6 mL lidocaine local anesthesia. Moderate intravenous conscious sedation was administered by Dr. Obando. The patient was independently monitored by a nurse assigned to the Department of radiology using automated blood pressure, EKG, and pulse oximetry. The detailed conscious sedation record is house permanently in the hospital information system. The following is the brief sedation record: Start time 13:25, stop time 13:49, Versed 1 mg IV, fentanyl 50 g IV, heparin 5000 units IV. INDICATION FOR PROCEDURE: Ms. Ojeda is a very pleasant 83-year-old patient with atherosclerosis of the crow arteries and lifestyle limiting claudication who is noninvasive study showed significant vascular disease bilaterally. 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 We discussed with her the risks benefits and alternatives to an arteriogram in an attempt to open her superficial femoral artery and possibly treat her tibial disease also, and if we are unsuccessful across her occlusion in the SFA we would likely recommend femoral above-knee popliteal bypass. The patient was agreeable to proceed with an arteriogram first to see if endovascular intervention could be performed. Regarding her right lower extremity, it is not as severe if symptoms of the left, so we will address this at a later date. Informed consent was obtained. INTERPRETATION: 1. The distal aortic inflow into the iliac system is widely patent, and the common iliac artery hypogastric external iliac artery are widely patent. 2. The left common femoral artery is widely patent and there is some mild disease of the origin of the profunda, but there is a flush occlusion of the superficial femoral artery with reconstitution at Bradford's canal from collaterals from the profunda. The popliteal artery is patent, and runs often to 2 vessels, the anterior tibial artery and peroneal artery. The posterior tibial artery is occluded at its origin and does not reconstitute. There is some distal small vessel disease at the ankle, but flow continues distal to this due to extensive collaterals at the ankle and the foot is perfused. 3. After crossing the chronic total occlusion in the left SFA, angioplasty provided some improvement in flow but there was still significant irregular flow limiting plaque throughout. After stenting the area and post dilating, no residual stenosis remained. 4. Angioplasty of the origin of the profunda provided improved inflow to the thigh as well. REPORT OF OPERATION: Patient was brought to the angiographic suite in stable condition. Her bilateral groins were prepped and draped in a sterile fashion. An timeout was performed. Sedation was administered without complication. Her right groin was anesthetized with lidocaine and a microneedle was used to access the right common femoral artery over the femoral head under ultrasound guidance. A wire was passed through this access and a micro-sheath was placed. Through this Glidewire was advanced into the infrarenal aorta fluoroscopic guidance and a 6 Spanish sheath was placed and flushed with saline. Aortoiliofemoral arteriograms were performed and these proximal inflow segments are widely patent. We then went up and over the bifurcation with R catheter and Glidewire and with a little bit of effort I was able to cross into the occluded superficial femoral artery. We then exchanged the short 6 Spanish sheath for an open over 45 cm 6 Spanish sheath and flushes sheath with saline. A Gleich cath was then advanced over the wire and the wire and the glide cath were used across the entire occlusion in the SFA. Once in the popliteal artery. A quick selection arteriogram was performed to make sure we were in the true lumen. After this was confirmed, we did three-minute low inflation angioplasties across the SFA with a 6 x 200 Erie balloon. There was still residual stenosis plaque and altogether this w as significantly flow-limiting. Therefore we selected a 6 x 150 cm self- expanding stent and deployed this distally from Bradford's canal to the proximal SFA, and then selected a 6 x 100 cm self-expanding stent and placed this with overlap to the origin of the SFA. We postoperatively limited with a 6 x 200 balloon and there was widely patent flow after angioplasty and stenting. No ext ravasation no embolization of dissection were noted. We then navigated R wire into the origin the profunda and angioplasty the origin the profunda with a 4 x 40 Erie balloon which dramatically improved inflow to the profunda. Arteriograms were then performed below the knee and we noted good flow through the popliteal and tibioperoneal trunk and the peroneal artery with a flush o cclusion of the posterior tibial artery that does not reconstitute at the ankle. The anterior tibial artery was also widely patent. There was some disease in the very distal anterior tibial artery at the ankle, but flow proceeded distal to this and there was good perfusion to the foot, therefore we did not angioplasty this distal small segment at this time. This concluded our procedure. Our sheath was exchanged for a short 6 Spanish sheath in the right common femoral artery and the makes closure device was deployed with good hemostasis. Pressure was held for 10 minutes and the patient was taken to recovery in stable condition. She to lerated the procedure and the sedation well. ESTIMATED BLOOD LOSS: Approximately 5 mL. COMPLICATIONS: None. PLAN: The patient will be monitored 4 hours postprocedure and discharged home in stable condition and no hematoma the right groin. We will see her back in clinic within the week to check her access site in her perfusion in the left lower extremity. She will be started on Plavix today will go home with a prescription for Plavix for 60 days. DENIS OBANDO MD Jan 03, 2019 14:20
== END 2019-01-03 10:47 | disposition home or self-care (01) ==
LOC: M SDC 06:10
PROVIDERS: ATTEND Surgery Vascular Surgery
DX: I87.2 Venous insufficiency (chronic) (peripheral) (principal); I83.811 Varicose veins of right lower extremity with pain; L03.115 Cellulitis of right lower limb; R60.0 Localized edema; I13.0 Hypertensive heart and chronic kidney disease with heart failure and stage 1 through stage 4 chronic kidney disease, or unspecified chronic kidney disease; N18.2 Chronic kidney disease, stage 2 (mild); E10.22 Type 1 diabetes mellitus with diabetic chronic kidney disease; K57.32 Diverticulitis of large intestine without perforation or abscess without bleeding; E10.40 Type 1 diabetes mellitus with diabetic neuropathy, unspecified; E03.9 Hypothyroidism, unspecified; E78.5 Hyperlipidemia, unspecified; I48.91 Unspecified atrial fibrillation; I50.32 Chronic diastolic (congestive) heart failure; K21.9 Gastro-esophageal reflux disease without esophagitis; G47.30 Sleep apnea, unspecified; M10.9 Gout, unspecified; M12.9 Arthropathy, unspecified; M54.9 Dorsalgia, unspecified; R06.83 Snoring; Z88.5 Allergy status to narcotic agent; Z88.8 Allergy status to other drugs, medicaments and biological substances; Z79.899 Other long term (current) drug therapy; Z79.01 Long term (current) use of anticoagulants; Z79.4 Long term (current) use of insulin; Z87.891 Personal history of nicotine dependence; Z96.653 Presence of artificial knee joint, bilateral; Z78.0 Asymptomatic menopausal state; Z68.37 Body mass index [BMI] 37.0-37.9, adult
CPT/HCPCS: 36415; 36475; 76940; 76998; 80048; 85027; 85610; 85730; 86850; 86900; 86901; C1894; J0690; J2405; J3010

== ENCOUNTER → 2019-01-07 | Outpatient (CLI) | payer MEDICARE ==
[~2019-01-07] MED LIST changes: -LIDOCAINE 1% MDV 20ML VIAL SQ PRN; +OXYC1TAB23 PO
--- NOTE | 2019-01-07 12:02 | REP ---
Follow-up right lower extremity deep vein duplex ultrasound post superficial vein ablation: The patient underwent a superficial vein right lower extremity ablation on 01/03/2019. There is diffuse occluding thrombus throughout the right greater saphenous vein beginning approximately 4 cm distal the junction with the common femoral vein, as would be expected post ablation. The right lower extremity deep veins demonstrate normal compression, normal Doppler color flow and normal Doppler waveforms with respiration and augmentation from the popliteal vein to the common femoral vein. Impression: There is no deep vein thrombus. Electronically Signed by Lonnie Valerio MD 01/07/2019 11:53 A
== END ==
LOC: M RAD 10:39
PROVIDERS: ATTEND Surgery Vascular Surgery
DX: I87.2 Venous insufficiency (chronic) (peripheral) (principal); M79.661 Pain in right lower leg; I82.811 Embolism and thrombosis of superficial veins of right lower extremity; Z98.890 Other specified postprocedural states

== ENCOUNTER 2020-02-25 19:52 | Emergency (ER) | payer MEDICARE ==
[~2020-02-25] VITALS: Ht 165.1 cm; Wt 103.5 kg
[~2020-02-25 19:52] MED LIST changes: +CALC-212 PO; -CALC600T7 PO
[2020-02-25] MEDS ORDERED: FOSI10TA4 (20:06)
[2020-02-25] MEDS ORDERED: VANCOMYCIN HCL 2,000 MG in D5W 500 ML IV ONE (22:45)
[2020-02-25 23:00] LABS: BASO # 0.1 10^3/uL (0.0-0.2); BASO % 0.8 % (0.0-1.0); EOS # 0.5 10^3/uL (0.0-0.5); EOS % 8.9 % (0.0-3.0); HEMOGLOBIN 13.1 g/dl (12.0-15.5); LYMPH # 1.2 10^3/uL (1.5-5.0); LYMPH % 19.4 % (24.0-44.0); MEAN CORPUSCULAR VOLUME 100.2 fl (80.0-96.0); MONO # 0.6 10^3/uL (0.0-0.8); MONO % 9.2 % (0.0-5.0); NEUTROPHILS # 3.7 10^3/uL (1.5-8.5); NEUTROPHILS % 61.4 % (36.0-66.0); PLATELET COUNT, AUTOMATED 290 10^3/uL (150-450); RED BLOOD COUNT 4.09 10^6/uL (4.00-5.40)
[2020-02-25] MEDS ORDERED: VANCOMYCIN HCL 1,000 MG, VIAL MATE ADAPTER 1 EACH in D5W 250 ML IV ONE (23:00)
[2020-02-25 23:20] LABS: ERYTHROCYTE SEDIMENTATION RATE 33 mm/hr (0-30)
[2020-02-25 23:25] LABS: ALBUMIN 2.9 GM/DL (3.2-5.2); ALT/SGPT 12 U/L (12-78); BILIRUBIN,DIRECT < 0.1 MG/DL (0.0-0.2); BILIRUBIN,TOTAL 0.2 MG/DL (0.2-1.0); BLOOD UREA NITROGEN 30 MG/DL (7-18); C REACTIVE PROTEIN QUANTITATIV 4.46 MG/DL (0.00-0.30); CALCIUM LEVEL 9.2 MG/DL (8.8-10.2); CARBON DIOXIDE LEVEL 35 MEQ/L (21-32); CHLORIDE LEVEL 106 MEQ/L (98-107); GLUCOSE, FASTING 151 MG/DL (70-100); POTASSIUM SERUM 3.9 MEQ/L (3.5-5.1); SODIUM LEVEL 145 MEQ/L (136-145); TOTAL PROTEIN 5.9 GM/DL (6.4-8.2)
[2020-02-26] MEDS ORDERED: VANCOMYCIN HCL 1,000 MG, VIAL MATE ADAPTER 1 EACH in D5W 250 ML IV ONE ×3
[2020-02-26] MEDS ORDERED: CLEO300C2 PO (00:23)
[2020-02-26 01:25] VITALS: BP 157/84
== END 2020-02-26 01:26 | disposition home or self-care (01) ==
LOC: M ED 19:52
DX: L03.115 Cellulitis of right lower limb (principal); L03.116 Cellulitis of left lower limb; I48.91 Unspecified atrial fibrillation; E11.29 Type 2 diabetes mellitus with other diabetic kidney complication; I12.9 Hypertensive chronic kidney disease with stage 1 through stage 4 chronic kidney disease, or unspecified chronic kidney disease; E78.5 Hyperlipidemia, unspecified; M79.2 Neuralgia and neuritis, unspecified; K21.9 Gastro-esophageal reflux disease without esophagitis; G47.33 Obstructive sleep apnea (adult) (pediatric); E03.9 Hypothyroidism, unspecified; N18.30 Chronic kidney disease, stage 3 unspecified; M48.00 Spinal stenosis, site unspecified; Z88.1 Allergy status to other antibiotic agents; Z88.8 Allergy status to other drugs, medicaments and biological substances; Z88.5 Allergy status to narcotic agent; Z79.899 Other long term (current) drug therapy; Z79.01 Long term (current) use of anticoagulants; Z79.4 Long term (current) use of insulin
CPT/HCPCS: 80048; 80076; 83605; 85025; 85652; 86140; 87040; 96365; 96366; 99283; J3370

== ENCOUNTER → 2020-03-08 | Outpatient (REF) | payer MEDICARE ==
[~2020-03-08] MED LIST changes: +CLEO300C2 PO; +FOSI10TA4
== END ==
LOC: M LAB REF 11:22
PROVIDERS: ATTEND Internal Medicine
DX: Z79.01 Long term (current) use of anticoagulants (principal)

== ENCOUNTER 2020-05-30 23:23 | Inpatient (IN) | payer MEDICARE ==
[~2020-05-30] VITALS: Ht 165.1 cm; Wt 107.6 kg
[~2020-05-30 23:23] MED LIST changes: -FOSI10TA4; +FOSI10TA4 PO
[2020-05-30] MEDS ORDERED: REST0.05 OU (23:44)
[2020-05-31] MEDS ORDERED: ACETAMINOPHEN 325 MG TAB PO ONE (00:40)
[2020-05-31] MEDS ORDERED: NS 1,000 ML IV ONE (00:40)
[2020-05-31 01:10] LABS: BASO # 0.1 10^3/uL (0.0-0.2); BASO % 0.7 % (0.0-1.0); EOS # 0.3 10^3/uL (0.0-0.5); EOS % 2.8 % (0.0-3.0); HEMATOCRIT 39.9 % (36.0-47.0); HEMOGLOBIN 12.8 g/dl (12.0-15.5); LYMPH % 8.7 % (24.0-44.0); MEAN CORPUSCULAR HEMOGLOBIN 32.1 pg (27.0-33.0); MEAN CORPUSCULAR HGB CONC 32.1 g/dl (32.0-36.5); MONO # 1.1 10^3/uL (0.0-0.8); NEUTROPHILS # 8.5 10^3/uL (1.5-8.5); PLATELET COUNT, AUTOMATED 269 10^3/uL (150-450); RED BLOOD COUNT 3.99 10^6/uL (4.00-5.40)
[2020-05-31 01:19] LABS: INR 3.12; PROTHROMBIN TIME 32.8 SECONDS (12.5-14.3)
[2020-05-31 01:20] LABS: PARTIAL THROMBOPLASTIN TIME 62.3 SECONDS (24.2-38.5)
[2020-05-31] MEDS: GASTROGRAFIN SOLUTION 30ML PO SCH ×2 (01:21→02:04)
--- NOTE | 2020-05-31 01:37 | REPVR ---
PROCEDURE INFORMATION: Exam: XR Complete Acute Abdomen Series Exam date and time: 05/31/2020 1:21 AM Age: 84 years old Clinical indication: Abdominal pain; Acute TECHNIQUE: Imaging protocol: XR complete acute abdomen series, including 2 or more views of the abdomen and a single view chest. COMPARISON: CR Chest, 2 view PA, Lat 08/13/2017 10:24 PM FINDINGS: Limitations: Multiple overlying electrocardiograph leads. Lungs: No acute infiltrate. Pleural spaces: Normal. No pleural effusions. No pneumothorax. Heart/Mediastinum: Normal. No cardiomegaly. Gastrointestinal tract: No evidence of bowel obstruction. Small air-fluid level in the left upper quadrant which is nonspecific. Intraperitoneal space: Surgical clips in right upper quadrant of the abdomen. Vasculature: Phleboliths in the left hemipelvis. Bones/joints: Spondylosis of the spine. No acute fracture. Soft tissues: Normal. IMPRESSION: 1. No acute infiltrate. 2. No evidence of bowel obstruction. 3. Small air-fluid level in the left upper quadrant which is nonspecific. Electronically signed by: Ny Chan On 05/31/2020 01:37:44 AM
[2020-05-31 01:46] LABS: ALBUMIN 2.6 GM/DL (3.2-5.2); ALT/SGPT 25 U/L (12-78); BILIRUBIN,DIRECT 0.1 MG/DL (0.0-0.2); BILIRUBIN,TOTAL 0.3 MG/DL (0.2-1.0); BLOOD UREA NITROGEN 30 MG/DL (7-18); CALCIUM LEVEL 8.6 MG/DL (8.8-10.2); CARBON DIOXIDE LEVEL 31 MEQ/L (21-32); CHLORIDE LEVEL 101 MEQ/L (98-107); CPK CREATINE PHOSPHOKINASE 63 U/L (26-192); GLOMERULAR FILTRATION RATE 30.3 (>32); GLUCOSE, FASTING 371 MG/DL (70-100); LIPASE 72 U/L (73-393); MB/CK RELATIVE INDEX 1.59 (< OR =4); POTASSIUM SERUM 4.1 MEQ/L (3.5-5.1); SODIUM LEVEL 136 MEQ/L (136-145); TROPONIN I < 0.02 NG/ML (< 0.10)
[2020-05-31 02:48] LABS: CLOSTRIDIUM DIFFICILE PCR POSITIVE (NEGATIVE)
--- NOTE | 2020-05-31 02:58 | REPVR ---
PROCEDURE INFORMATION: Exam: CT Abdomen And Pelvis Without Contrast Exam date and time: 05/31/2020 2:34 AM Age: 84 years old Clinical indication: Bloating and fever; Abdominal pain; Generalized; Additional info: Oncoporesis/ bloating/fever/diarrhea/pain TECHNIQUE: Imaging protocol: Computed tomography of the abdomen and pelvis without contrast. Radiation optimization: All CT scans at this facility use at least one of these dose optimization techniques: automated exposure control; mA and/or kV adjustment per patient size (includes targeted exams where dose is matched to clinical indication); or iterative reconstruction. COMPARISON: CT ABD/PEL W/PO CONTRAST ONLY 08/14/2017 12:25 AM FINDINGS: Limitations: Examination is limited by motion artifact. Coronary arteries: Mild coronary artery calcification. Liver: Normal. No mass. Gallbladder and bile ducts: Status post cholecystectomy. No biliary ductal dilatation. Pancreas: Normal. No ductal dilation. Spleen: Normal. No splenomegaly. Adrenal glands: Normal. No mass. Kidneys and ureters: No hydronephrosis bilaterally. Benign-appearing cyst in lower pole of the left kidney measuring 7.6 cm. e benign-appearing cysts in the kidneys bilaterally. Stomach and bowel: Small sliding-type gastric hiatal hernia. Diffuse thickening of the colon. Diffuse pericolonic haziness associated with the thickened colon. Diffuse colonic diverticulosis. No abnormal bowel dilatation. Appendix: Appendix is normal. Intraperitoneal space: No free air. Trace free fluid in the pelvis. Vasculature: . No abdominal aortic aneurysm. Moderate calcified atherosclerotic disease. Lymph nodes: Unremarkable. No enlarged lymph nodes. Urinary bladder: Unremarkable as visualized. Reproductive: Uterus is normal. Bones/joints: Severe degenerative spine. No acute fracture. Soft tissues: Small umbilical hernia containing fat. There is no evidence of strangulation. IMPRESSION: 1. Diffuse thickening of the colon. Consistent with infectious or inflammatory colitis. 2. Benign-appearing cysts bilaterally. No follow-up is necessary. 3. No bowel perforation. 4. Additional findings as described. COMMENTS: Consistent with the [employer]'s Incidental Findings Committee white paper (J Am Desiree Radiol 2018): Any incidental renal lesion less than 1 cm or classified as too small to characterize, or any incidental cystic renal lesion characterized as simple-appearing, is likely benign. No follow-up imaging is recommended for these lesions per consensus recommendations based on imaging criteria. Electronically signed by: Ny Chan On 05/31/2020 02:58:41 AM
[2020-05-31] MEDS ORDERED: metroNIDAZOLE 500 MG in IV 1 EA IV ONE (03:00)
[2020-05-31] MEDS ORDERED: VANCOMYCIN ORAL SOL 250MG/5ML ORAL SYRINGE PO ONE (03:00)
[2020-05-31] MEDS ORDERED: MOM 30ML SUSPENSION UDC PO PRN (03:45)
[2020-05-31] MEDS ORDERED: GLUCAGON INJ 1MG VIAL SC PRN ×2 (03:45→10:10)
[2020-05-31] MEDS ORDERED: DEXTROSE 50% 50 ML SYRINGE IV PRN ×2 (03:45→10:10)
[2020-05-31] MEDS ORDERED: GLUCOSE 4GM CHEW TABLET PO PRN ×2 (03:45→10:10)
[2020-05-31] MEDS ORDERED: MAALOX 30 ML SUSP *UDC PO PRN (03:45)
--- NOTE | 2020-05-31 03:55 | HPEPDOC ---
[facility] Medical History & Physical Date of Admission May 31, 2020 Date of Service: May 31, 2020 Primary Care Physician: Kim Florez Attending Physician: TAHIR WELCH MD History and Physical TIME OF SERVICE: 400am CHIEF COMPLAINT: diarrhea HISTORY OF PRESENT ILLNESS: This 84 yr old F received her COVID vaccine 1 week ago and thereafter developed diarrhea associated with abdominal bloating, cramping abdominal pain, fever, fecal urgency and fecal incontinence. She is not sure how many BMs she had in the last 24H but reports having 3 BMs while in the ER. Her daughter brought her in she noticed that the pt has been confused. She was started on PO Vanc and IV Metro for C. dif colitis. REVIEW OF SYSTEMS: 12-point review of systems negative except as listed in HPI PAST MEDICAL/ SURGICAL HISTORY: IDDM w neuropathy Obesity Longstanding persistent atrial fib on coumadin Chronic HFpEF / Hypertensive heart disease CKD3 Hypothyroidism Chronic bilateral venous stasis dermatitis JOSE CPAP 9cm Chronic post herpetic neuralgia 2/2 shingles Spinal stenosis / chronic lower back pain Debility Cholecystectomy Left rotator cuff surgery Neck surgery for herniated cervical disks Left cataract surgery Bilateral total knee replacement to mange severe OA SOCIAL HISTORY: She doesnt smoke, has 2 children, is retired use to work for a [employer] company FAMILY HISTORY: DM, leukemia, CAD ALLERGIES: Please see below. HOME MEDICATIONS: Please see below. PHYSICAL EXAMINATION: Vital Signs Date Time Temp Pulse Resp B/P (MAP) Pulse Ox O2 Delivery O2 Flow Rate FiO2 05/30/20 23:25 100.2 90 18 136/65 (88) 92 Room Air GENERAL APPEARANCE: well nourished and developed / NAD HEENT: mask covering lower face CARDIOVASCULAR: RRR/NMRG LUNGS: CTAB on RA ABDOMEN: obese / soft &NT MUSCULOSKELETAL: PEE x 4 INTEGUMENT: chronic venous stasis changes on both legs NEUROLOGICAL: speech not dysarthric PSYCHIATRIC: A&Ox 3/ able to understand and follow all commands LABORATORY DATA: 05/31/20 00:53 05/31/20 00:53: Immature Granulocyte % (Auto) 0.8, Neutrophils (%) (Auto) 77.0H, Lymphocytes (%) (Auto) 8.7L, Monocytes (%) (Auto) 10.0H, Eosinophils (%) (Auto) 2.8, Basophils (%) (Auto) 0.7, Neutrophils # (Auto) 8.5, Lymphocytes # (Auto) 1.0L, Monocytes # (Auto) 1.1H, Eosinophils # (Auto) 0.3, Basophils # (Auto) 0.1, Nucleated Red Blood Cells % (auto) 0.0, Prothrombin Time 32.8H, Prothromb Time International Ratio 3.12, Activated Partial Thromboplast Time 62.3H, Anion Gap 4L, Glomerular Filtration Rate 30.3L, Lactic Acid Level 1.6, Calcium Level 8.6L, Total Bilirubin 0.3, Direct Bilirubin 0.1, Aspartate Amino Transf (AST/SGOT) 13, Alanine Aminotransferase (ALT/SGPT) 25, Alkaline Phosphatase 86, Total Creatine Kinase 63, Creatine Kinase MB 1.0, Creatine Kinase MB Relative Index 1.59, Troponin I < 0.02, Total Protein 5.0L, Albumin 2.6L, Albumin/Globulin Ratio 1.1L, Lipase 72L 05/31/20 01:44: Clostridium difficile [id number] PRESUMPTIVE NEGATIVE, Clostridium difficile T oxin (PCR) POSITIVEA IMAGING: CT abd/pelvis IMPRESSION: 1. Diffuse thickening of the colon. Consistent with infectious or inflammatory colitis. 2. Benign-appearing cysts bilaterally. No follow-up is necessary. 3. No bowel perforation. 4. Additional findings as described. Abdominal xray IMPRESSION: 1. No acute infiltrate. 2. No evidence of bowel obstruction. 3. Small air-fluid level in the left upper quadrant which is nonspecific. MICROBIOLOGY: Cdiff + ASSESSMENT: is an 84 yr old w a hx of IDDM, Afib, HFpEF, CKD3, HTN, Hypothyrodism, JOSE, obesity and debility who presented w c/o abdominal pain, diarrhea, fecal urgency, fecal incontinence and will be admitted for management of C.dif colitis & QING on CKD. PLAN: 1 Severe C Diff Because her Cr >1.5 her infection is classified as severe There were no mentions of ileus on CT Plan: admit to medical floor / c/w oral vancomycin plus intravenous metronidazole 2 QING on CKD 3 Plan: monitor UOP / IVF / f/u renal panel, CK, Ulytes for FENa or FEUrea / renal US / hold nephrotoxic drugs ie Fosinopril & torsemide / Calcitriol 3 Transient encephalopathy Likely 2/2 infection Resolved Per daughter pt may have dementia Plan: treat infection 3 IDDM w neuropathy Plan: diabetic diet / f/u accuchecks / hypoglycemia protocol / sliding scale insulin / hold oral anti-glycemic / f/u A1C / Gabapentin / decrease long actin insulin from 60 units to 50 units QHS as I anticipate she may develop hypoglycemia because of QING causing reduced clearanc of her insulin 4 Gout Allopurinol 5 Longstanding persistent atrial fib INR slightly above target f/u INR /hold Coumadin 6 Chronic HFpEF / Hypertensive heart disease Carvedilol 7 Hypothyroidism Levothyroxine 8 JOSE CPAP 9cm 9 Obesity BMI 39.4 complicates care DVT n/a on warfarin Dispo: home after at least 2 midnights stay Home Medications Scheduled Allopurinol (Zyloprim) 300 Mg Tablet, 300 MG PO DAILY Calcitriol (Calcitriol) 0.25 Mcg Cap, 0.25 MCG PO 5XW TAKES SUNDAY THROUGH SUNDAY Carvedilol (Carvedilol) 6.25 Mg Tablet, 6.25 MG PO BID Cyclosporine (Restasis) 0.05% Droperette, 1 DROP OU BID Dorzolamide HCl/Timolol Maleat (Dorzolamide-Timolol Eye Drops) 1 Teresa Teresa, 1 DROP OU BID Duloxetine Hcl (Duloxetine HCl) 60 Mg Cap, 60 MG PO QHS Fosinopril Sodium (Fosinopril Sodium) 10 Mg Tablet, 10 MG PO QHS Gabapentin (Gabapentin) 800 Mg Tab, 800 MG PO QHS Insulin Glargine (Lantus) 100 Unit/Ml Inj, 60 UNIT INJ QHS 48 units in AM, 60 UNITS AT NIGHT Insulin Lispro (Humalog Kwikpen U-100) 100 Unit/1 Ml Insuln.pen, 1 DOSE SC ASDIRECTED PER SLIDING SCALE Latanoprost (Xalatan) 0.005% 2.5ML Drops, 1 DROP OU QHS Levothyroxine Sodium (Levothyroxine Sodium) 112 Mcg Tab, 112 MCG PO DAILY Magnesium Chloride (Mag64) 64 Mg Tabcr, 128 MG PO BID Simvastatin (Zocor) 40 Mg Tab, 40 MG PO QHS Torsemide (Torsemide) 20 Mg Tab, 20 MG PO BID Warfarin Sodium (Warfarin Sodium) 5 Mg Tablet, 5 MG PO DAILY Allergies Coded Allergies: tramadol (Verified Allergy, Unknown, hives, 12/26/18) Quinolones (Verified Adverse Reaction, Unknown, reduces blood sugar drastically, 01/02/19) diazepam (Verified Adverse Reaction, Unknown, lethargic, 01/02/19) A-FIB/CHADSVASC A-FIB History Current/History of A-Fib/PAF?: Yes Current PO Anticoag Therapy: Yes TAHIR WELCH MD May 31, 2020 03:55
[2020-05-31 04:07] LABS: RSV AMPLIFICATION NEGATIVE (NEGATIVE)
[2020-05-31] MEDS ORDERED: HUMA100I5 SC (04:23)
[2020-05-31] MEDS ORDERED: ZYLO300T6 PO (04:23)
[2020-05-31] MEDS ORDERED: CARV6.25 PO (04:23)
[2020-05-31] MEDS ORDERED: XALA0.007 OU (04:23)
[2020-05-31] MEDS ORDERED: WARF-23 PO (04:23)
--- NOTE | 2020-05-31 04:36 | REPVR ---
PROCEDURE INFORMATION: Exam: US Retroperitoneal Limited, Kidneys Exam date and time: 05/31/2020 4:21 AM Age: 84 years old Clinical indication: Abdominal pain; Generalized; Additional info: Pascual TECHNIQUE: Imaging protocol: Real-time ultrasound of the retroperitoneum with image documentation. Examination was focused on the kidneys. COMPARISON: CT ABD/PEL W/PO CONTRAST ONLY 05/31/2020 2:34 AM FINDINGS: Limitations: Examination is limited by body habitus. Right kidney: Right kidney measures 10.1 cm in length. Normal echogenicity. No solid masses. No hydronephrosis. Anechoic cyst in the midpole of the right kidney measuring 3.1 x 3.2 x 2.8 cm. Left kidney: Left kidney measures 11.0 cm in length. Normal echogenicity. No solid masses. No hydronephrosis. Anechoic cyst in the lower pole of the left kidney measuring 8.4 x 7.1 x 7.0 cm. IMPRESSION: 1. No hydronephrosis. 2. Simple bilateral renal cysts. No follow-up is necessary. Electronically signed by: Ny Chan On 05/31/2020 04:36:17 AM
[2020-05-31] MEDS: NS 1,000 ML IV SCH ×2 (04:49→20:56)
[2020-05-31 05:15] VITALS: BP 138/80
[2020-05-31] MEDS: GABAPENTIN 400MG CAP PO SCH ×2 (05:39→20:51)
[2020-05-31] MEDS: SIMVASTATIN 40 MG TAB PO SCH ×2 (05:39→20:51)
[2020-05-31] MEDS: DULoxetine 30 MG CAP (CYMBALTA) PO SCH ×2 (05:39→20:53)
[2020-05-31] MEDS: LEVEMIR (INSULIN DETEMIR) 1 UNITS/0.01ML SC SCH ×2 (05:39→20:55)
[2020-05-31] MEDS: LATANOPROST 0.005% OPHTH SOLN 2.5 ML OU SCH ×2 (05:40→20:50)
[2020-05-31] MEDS ORDERED: HEPARIN SOD (PORCINE) 5000UNITS/ML 1ML VIAL/SYRINGE SC SCH (06:00)
[2020-05-31] MEDS ORDERED: HumaLOG INSULIN (NovoLOG) PER UNIT SC SCH (06:00)
[2020-05-31 07:14] LABS: HEMATOCRIT 37.8 % (36.0-47.0); HEMOGLOBIN 12.2 g/dl (12.0-15.5); MEAN CORPUSCULAR HEMOGLOBIN 31.9 pg (27.0-33.0); MEAN CORPUSCULAR HGB CONC 32.3 g/dl (32.0-36.5); PLATELET COUNT, AUTOMATED 247 10^3/uL (150-450); RED BLOOD COUNT 3.82 10^6/uL (4.00-5.40); WHITE BLOOD COUNT 10.1 10^3/uL (4.0-10.0)
[2020-05-31 07:30] LABS: HEMOGLOBIN A1c 7.2 %
[2020-05-31 07:56] LABS: CALCIUM LEVEL 7.8 MG/DL (8.8-10.2); CREATININE FOR GFR 1.28 MG/DL (0.55-1.30); GLOMERULAR FILTRATION RATE 42.1 (>32); POTASSIUM SERUM 3.5 MEQ/L (3.5-5.1)
[2020-05-31] MEDS ORDERED: WARFARIN SOD 5MG TAB PO SCH (09:00)
[2020-05-31] MEDS: CALCITRIOL 0.25 MCG CAP (S0169) PO SCH (09:28)
[2020-05-31] MEDS: LEVOTHYROXINE 112MCG TABLET (0.112MG) PO SCH (09:28)
[2020-05-31] MEDS: allopurinoL 300 MG TAB PO SCH (09:28)
[2020-05-31] MEDS: COSOPT OCUMETER PLUS 10ML (DORZOLAMIDE/TIMOLOL) OU SCH ×2 (09:28→20:55)
[2020-05-31] MEDS: CARVedilol 6.25 MG TAB PO SCH ×2 (09:32→20:54)
[2020-05-31] MEDS: VANCOMYCIN ORAL SOL 250MG/5ML ORAL SYRINGE PO SCH ×3 (11:48→23:47)
[2020-05-31] MEDS: HumaLOG INSULIN (NovoLOG) PER UNIT SC SCH ×3 (11:48→20:55)
[2020-05-31] MEDS ORDERED: metroNIDAZOLE 750 MG in IV 1 EA IV SCH (12:00)
--- NOTE | 2020-05-31 12:02 | IPNPDOC ---
Text Note Date of Service The patient was seen on 05/31/20. NOTE He was seen this morning. She is in no acute distress. Continues to have diarr hea but has improved. Physical exam GENERAL APPEARANCE: well nourished and developed / NAD HEENT: No icterus, no pallor CARDIOVASCULAR: RRR/NMRG LUNGS: CTAB on RA ABDOMEN: obese / soft &NT MUSCULOSKELETAL: PEE x 4 INTEGUMENT: chronic venous stasis changes on both legs NEUROLOGICAL: speech not dysarthric PSYCHIATRIC: A&Ox 3/ able to understand and follow all commands Imaging CT abd/pelvis IMPRESSION: 1. Diffuse thickening of the colon. Consistent with infectious or inflammatory colitis. 2. Benign-appearing cysts bilaterally. No follow-up is necessary. 3. No bowel perforation. 4. Additional findings as described. Microbiology: Cdiff + Labs reviewed Assessment and plan is an 84 yr old w a hx of IDDM, Afib, HFpEF, CKD3, HTN, Hypothyrodism, JOSE, obesity and debility who presented w c/o abdominal pain, diarrhea, fecal urgency, fecal incontinence and will be admitted for management of C.dif colitis & QING on CKD. 1 Severe C Diff: Patient has been started on oral vancomycin plus intravenous metronidazole. Will continue to monitor the number of stools. Currently she is on mild hydration as well. No signs of any ileus or any toxic megacolon. 2 QING on CKD 3: Improving with gentle hydration. monitor urine output. Avoid nephrotoxic drugs. Renal sonogram reviewed. 3 Transient encephalopathy: Resolved. She is at baseline right now. Likely secondary to dehydration. 4. IDDM w neuropathy: diabetic diet / f/u accuchecks / hypoglycemia protocol / sliding scale insulin / hold oral anti-glycemic / f/u A1C / Gabapentin / decrease long actin insulin from 60 units to 50 units QHS as she may develop hypoglycemia because of QING causing reduced clearanc of her insulin 4 Gout: Continue Allopurinol 5 Longstanding persistent atrial fib: Currently rate controlled on chronic Coumadin which is on hold right now because her INR is more than 3. 6 Chronic HFpEF / Hypertensive heart disease: Carvedilol looks euvolemic. Hold diuretics as she slightly dehydrated. 7 Hypothyroidism: Continue Levothyroxine 8 JOSE : CPAP 9cm 9 Obesity: BMI 39.4 complicates care DVT n/a on warfarin Disposition unknown at this time. VS,Rose I+O VS, Fishbone, I+O Laboratory Tests 05/31/20 00:53 05/31/20 07:00 Vital Signs Date Time Temp Pulse Resp B/P (MAP) Pulse Ox O2 Delivery O2 Flow Rate FiO2 05/31/20 09:32 73 132/52 05/31/20 05:15 98.9 20 96 05/31/20 04:45 Room Air I&O- Last 24 Hours up to 6 AM 05/31/20 06:00 Intake Total 1280 ml Balance 1280 ml LUCÍA FRENCH MD May 31, 2020 12:02
[2020-05-31 14:00] VITALS: BP 161/87
[2020-05-31] MEDS: ACETAMINOPHEN TAB 650MG DOSE (2X325MG) PO PRN (20:53)
[2020-05-31 22:00] VITALS: BP 151/68
[2020-06-01] MEDS: VANCOMYCIN ORAL SOL 250MG/5ML ORAL SYRINGE PO SCH ×4 (05:34→23:57)
[2020-06-01 06:00] VITALS: BP 161/68
[2020-06-01 06:40] LABS: HEMATOCRIT 41.4 % (36.0-47.0); HEMOGLOBIN 13.2 g/dl (12.0-15.5); MEAN CORPUSCULAR HEMOGLOBIN 31.4 pg (27.0-33.0); MEAN CORPUSCULAR HGB CONC 31.9 g/dl (32.0-36.5); MEAN CORPUSCULAR VOLUME 98.3 fl (80.0-96.0); PLATELET COUNT, AUTOMATED 195 10^3/uL (150-450); RED BLOOD COUNT 4.21 10^6/uL (4.00-5.40); WHITE BLOOD COUNT 14.5 10^3/uL (4.0-10.0)
[2020-06-01 06:48] LABS: INR 2.14; PROTHROMBIN TIME 24.4 SECONDS (12.5-14.3)
--- NOTE | 2020-06-01 07:12 | REPVR ---
PROCEDURE INFORMATION: Exam: CT Head Without Contrast Exam date and time: 06/01/2020 5:10 AM Age: 84 years old Clinical indication: Injury or trauma; Fall; Concussion/head injury; Consciousness not specified; Additional info: Unwitnessed fall out of bed, inr >3 TECHNIQUE: Imaging protocol: Computed tomography of the head without contrast. Radiation optimization: All CT scans at this facility use at least one of these dose optimization techniques: automated exposure control; mA and/or kV adjustment per patient size (includes targeted exams where dose is matched to clinical indication); or iterative reconstruction. COMPARISON: CT Head without contrast 06/29/2016 5:08 PM FINDINGS: Brain: There is no acute intracranial hemorrhage or mass effect. Mild diffuse volume loss is within the range of normal for patient age. There are small vessel ischemic changes within the periventricular and subcortical white matter, but the normal snyder/white matter delineation is maintained. There are chronic lacunar infarcts within the basal ganglia. Cerebral ventricles: No ventriculomegaly. Bones/joints: Unremarkable. No acute fracture. Paranasal sinuses: Visualized sinuses are unremarkable. No fluid levels. Mastoid air cells: Visualized mastoid air cells are well aerated. Soft tissues: Unremarkable. IMPRESSION: No acute intracranial hemorrhage or calvarial fracture. Electronically signed by: Shyla Gleason On 06/01/2020 07:13:07 AM
[2020-06-01 07:17] LABS: CREATININE FOR GFR 1.31 MG/DL (0.55-1.30); POTASSIUM SERUM 3.5 MEQ/L (3.5-5.1)
[2020-06-01] MEDS: allopurinoL 300 MG TAB PO SCH (08:25)
[2020-06-01] MEDS: LEVOTHYROXINE 112MCG TABLET (0.112MG) PO SCH (08:25)
[2020-06-01] MEDS: CALCITRIOL 0.25 MCG CAP (S0169) PO SCH (08:25)
[2020-06-01] MEDS: CARVedilol 6.25 MG TAB PO SCH ×2 (08:26→21:58)
[2020-06-01] MEDS: COSOPT OCUMETER PLUS 10ML (DORZOLAMIDE/TIMOLOL) OU SCH ×2 (08:26→21:59)
[2020-06-01] MEDS: ACETAMINOPHEN TAB 650MG DOSE (2X325MG) PO PRN ×2 (08:27→17:37)
[2020-06-01] MEDS: HumaLOG INSULIN (NovoLOG) PER UNIT SC SCH ×4 (08:27→21:00)
--- NOTE | 2020-06-01 10:43 | IPNPDOC ---
Text Note Date of Service The patient was seen on 06/01/20. NOTE Subjective: Early this morning, it was reported that pt had a fall out of bed. When asked, she states that she was trying to reposition herself in bed when her legs slipped out of bed, subsequently causing her to slide and fall out of bed. She denies hitting her head and head CT from this morning was negative. She states that she does not have any pain anywhere. Pt was cleared with PT yesterday but RN states that pt has been unsteady on her feet yesterday after the fall and required two people to help her walk. Patient states that her last BM was this morning and it was not well-formed. She had 5 bowel movements yesterday and three BM today. She did report two BMs in the afternoon that were well-formed. Otherwise, she reports that she has been eating and drinking without difficulty and expresses a good appetite. Objective: Physical exam GENERAL: No acute distress. Patient is well-developed and well-nourished in appearance. HEENT: No icterus, no pallor CARDIOVASCULAR: Regular rate and rhythm. No murmurs, rubs, or gallops. LUNGS: Lungs clear to auscultation. Normal breath sounds. ABDOMEN: Obese. Mild RLQ abd tenderness to palpation. Increased bowel sounds in all four quadrants. MUSCULOSKELETAL: PEE x 4 INTEGUMENT: 1+ pitting edema to BLE. Chronic venous stasis changes on both legs. NEUROLOGICAL: Speech not dysarthric PSYCHIATRIC: A&Ox 3/ able to understand and follow all commands Imaging: CT abd/pelvis (05/31/20): IMPRESSION: 1. Diffuse thickening of the colon. Consistent with infectious or inflammatory colitis. 2. Benign-appearing cysts bilaterally. No follow-up is necessary. 3. No bowel perforation. 4. Additional findings as described. Abd X-ray (05/31/20): "IMPRESSION: 1. No acute infiltrate. 2. No evidence of bowel obstruction. 3. Small air-fluid level in the left upper quadrant which is non- specific." Renal US (05/31/20): "IMPRESSION: 1. No hydronephrosis. 2. Simple bilateral renal cysts. No follow-up is necessary." Head CT (06/01/20): "IMPRESSION: No acute intracranial hemorrhage or calvarial fracture." Microbiology: C. diff + Labs reviewed Assessment and Plan: is an 84 yr old female w a hx of IDDM, Afib, HFpEF, CKD3, HTN, Hypothyroidism, JOSE, obesity and debility who presented w c/o abdominal pain, diarrhea, fecal urgency, fecal incontinence and will be admitted for management of C.diff colitis & QING on CKD. # Severe C Diff: - Patient has been started on oral vancomycin plus intravenous metronidazole. - Will continue to monitor the number of stools. - Currently she is on mild hydration as well. - No signs of any ileus or any toxic megacolon. # QING on CKD 3 - Improving with gentle hydration. - Monitor urine output. - Avoid nephrotoxic drugs. - Renal sonogram reviewed. # Transient encephalopathy - Resolved. - She is at baseline right now. - Likely secondary to dehydration. # IDDM w neuropathy - Diabetic diet / f/u accuchecks / hypoglycemia protocol / sliding scale insulin / hold oral anti-glycemic / f/u A1C / Gabapentin / decrease long actin insulin from 60 units to 50 units QHS as she may develop hypoglycemia because of QING causing reduced clearance of her insulin # Gout - Continue Allopurinol # Longstanding persistent atrial fib - Currently rate controlled - INR has decreased from 3.12 to 2.14. Will restart Coumadin with holding parameters based on INR. # Chronic HFpEF / Hypertensive heart disease - Continue Carvedilol - Appears euvolemic. Hold diuretics as she slightly dehydrated. # Hypothyroidism - Continue Levothyroxine # JOSE - CPAP 9cm # Obesity - BMI 39.4 complicates care DVT n/a on warfarin Disposition: Pending clinical evaluation. VS,Fishbone, I+O VS, Fishbone, I+O Laboratory Tests 06/01/20 06:28 06/01/20 06:39 Vital Signs Date Time Temp Pulse Resp B/P (MAP) Pulse Ox O2 Delivery O2 Flow Rate FiO2 06/01/20 08:26 75 130/53 06/01/20 06:00 98.5 20 90 05/31/20 14:00 Room Air I&O- Last 24 Hours up to 6 AM 06/01/20 05:59 Intake Total 2580 ml Output Total 1150 ml Balance 1430 ml GME ATTESTATION GME ATTESTATION My faculty preceptor for this patient encounter was physically present during the encounter and was fully available. All aspects of the patient interview, examination, medical decision making process, and medical care plan development were reviewed and approved by the faculty preceptor. The faculty preceptor is aware and concurs with the plan as stated in the body of this note and will attest to such by his/her cosignature. Irene GALVAN OMS-3 Jun 01, 2020 10:42 Alvino Silva DO Jun 01, 2020 12:31
[2020-06-01] MEDS: NS 1,000 ML IV SCH (12:57)
[2020-06-01 14:00] VITALS: BP 124/62
[2020-06-01] MEDS: WARFARIN SOD 5MG TAB PO SCH (17:37)
[2020-06-01] MEDS: GABAPENTIN 400MG CAP PO SCH (21:55)
[2020-06-01] MEDS: DULoxetine 30 MG CAP (CYMBALTA) PO SCH (21:56)
[2020-06-01] MEDS: SIMVASTATIN 40 MG TAB PO SCH (21:57)
[2020-06-01] MEDS: LEVEMIR (INSULIN DETEMIR) 1 UNITS/0.01ML SC SCH (21:58)
[2020-06-01] MEDS: LATANOPROST 0.005% OPHTH SOLN 2.5 ML OU SCH (21:59)
[2020-06-01 22:00] VITALS: BP 132/52
[2020-06-02] MEDS: NS 1,000 ML IV SCH (05:31)
[2020-06-02] MEDS: VANCOMYCIN ORAL SOL 250MG/5ML ORAL SYRINGE PO SCH ×3 (05:31→17:57)
[2020-06-02 06:00] VITALS: BP 151/72
[2020-06-02 06:35] LABS: INR 2.22; PROTHROMBIN TIME 25.1 SECONDS (12.5-14.3)
[2020-06-02 07:19] LABS: HEMOGLOBIN 11.3 g/dl (12.0-15.5); MEAN CORPUSCULAR HGB CONC 32.3 g/dl (32.0-36.5); MEAN CORPUSCULAR VOLUME 99.2 fl (80.0-96.0); PLATELET COUNT, AUTOMATED 263 10^3/uL (150-450); RED BLOOD COUNT 3.53 10^6/uL (4.00-5.40)
[2020-06-02 07:42] LABS: CALCIUM LEVEL 8.4 MG/DL (8.8-10.2); CREATININE FOR GFR 1.03 MG/DL (0.55-1.30); GLOMERULAR FILTRATION RATE 54.1 (>32); POTASSIUM SERUM 3.6 MEQ/L (3.5-5.1)
[2020-06-02] MEDS: HumaLOG INSULIN (NovoLOG) PER UNIT SC SCH ×4 (08:34→20:42)
[2020-06-02] MEDS: CALCITRIOL 0.25 MCG CAP (S0169) PO SCH (08:34)
[2020-06-02] MEDS: COSOPT OCUMETER PLUS 10ML (DORZOLAMIDE/TIMOLOL) OU SCH ×2 (08:34→20:43)
[2020-06-02] MEDS: LEVOTHYROXINE 112MCG TABLET (0.112MG) PO SCH (08:34)
[2020-06-02] MEDS: allopurinoL 300 MG TAB PO SCH (08:34)
[2020-06-02] MEDS: CARVedilol 6.25 MG TAB PO SCH ×2 (08:35→20:40)
--- NOTE | 2020-06-02 11:27 | IPNPDOC ---
Text Note Date of Service The patient was seen on 06/02/20. NOTE Subjective: There were no acute events overnight. Patient states that her last bowel movement was this morning and it was not well formed. Patient had 3 BM's as well as 1 incontinent BM yesterday. Patient states that she feels better and has had a good appetite. She reports living at home with her and her daughter visits often so she would have people to take care of her at home. Patient denies any abdominal pain. Objective: Physical exam GENERAL: No acute distress. Patient is well-developed and well-nourished in appearance. HEENT: No icterus, no pallor CARDIOVASCULAR: Regular rate and rhythm. No murmurs, rubs, or gallops. LUNGS: Inspiratory crackles and expiratory wheezes appreciated. Normal breath sounds. ABDOMEN: Obese. No abd tenderness to palpation. Increased bowel sounds in all four quadrants. MUSCULOSKELETAL: PEE x 4 INTEGUMENT: 2+ pitting edema to BLE. Chronic venous stasis changes on both legs. NEUROLOGICAL: Speech not dysarthric PSYCHIATRIC: A&Ox 3/ able to understand and follow all commands Imaging: CT abd/pelvis (05/31/20): IMPRESSION: 1. Diffuse thickening of the colon. Consistent with infectious or inflammatory colitis. 2. Benign-appearing cysts bilaterally. No follow-up is necessary. 3. No bowel perforation. 4. Additional findings as described. Abd X-ray (05/31/20): "IMPRESSION: 1. No acute infiltrate. 2. No evidence of bowel obstruction. 3. Small air-fluid level in the left upper quadrant which is non- specific." Renal US (05/31/20): "IMPRESSION: 1. No hydronephrosis. 2. Simple bilateral renal cysts. No follow-up is necessary." Head CT (06/01/20): "IMPRESSION: No acute intracranial hemorrhage or calvarial fracture." Microbiology: C. diff + Labs reviewed Assessment and Plan: is an 84 yr old female w a hx of IDDM, Afib, HFpEF, CKD3, HTN, Hypothyroidism, JOSE, obesity and debility who presented w c/o abdominal pain, diarrhea, fecal urgency, fecal incontinence and will be admitted for management of C.diff colitis & QING on CKD. # Severe C Diff: - Patient has been started on oral vancomycin plus intravenous metronidazole. - Will continue to monitor the number of stools. - Currently she is on mild hydration as well. Patient seems slightly fluid overloaded so will adjust fluids. - No signs of any ileus or any toxic megacolon. # QING on CKD 3 - Improving with gentle hydration. - Monitor urine output. - Avoid nephrotoxic drugs. - Renal sonogram reviewed. # Transient encephalopathy - Resolved. - She is at baseline right now. - Likely secondary to dehydration. # IDDM w neuropathy - Diabetic diet / f/u accuchecks / hypoglycemia protocol / sliding scale insulin / hold oral anti-glycemic / f/u A1C / Gabapentin / decrease long actin insulin from 60 units to 50 units QHS as she may develop hypoglycemia because of QING causing reduced clearance of her insulin # Gout - Continue Allopurinol # Longstanding persistent atrial fib - Currently rate controlled - Continue Coumadin with holding parameters based on INR. # Chronic HFpEF / Hypertensive heart disease - Continue Carvedilol - Appears euvolemic. Hold diuretics as she slightly dehydrated. # Hypothyroidism - Continue Levothyroxine # JOSE - CPAP 9cm # Obesity - BMI 39.4 complicates care DVT n/a on warfarin Disposition: Pending clinical evaluation. VS,Fishbone, I+O VS, Fishbone, I+O Laboratory Tests 06/02/20 05:54 Vital Signs Date Time Temp Pulse Resp B/P (MAP) Pulse Ox O2 Delivery O2 Flow Rate FiO2 06/02/20 08:35 74 143/43 06/02/20 06:00 97.9 20 95 06/01/20 14:00 Room Air I&O- Last 24 Hours up to 6 AM 06/02/20 06:00 Intake Total 2700 ml Output Total 900 ml Balance 1800 ml GME ATTESTATION GME ATTESTATION My faculty preceptor for this patient encounter was physically present during the encounter and was fully available. All aspects of the patient interview, examination, medical decision making process, and medical care plan development were reviewed and approved by the faculty preceptor. The faculty preceptor is aware and concurs with the plan as stated in the body of this note and will attest to such by his/her cosignature. Irene GALVAN S-3 Jun 02, 2020 11:27
[2020-06-02 14:00] VITALS: BP 132/60
[2020-06-02] MEDS: WARFARIN SOD 5MG TAB PO SCH (17:56)
[2020-06-02] MEDS: GABAPENTIN 400MG CAP PO SCH (20:38)
[2020-06-02] MEDS: SIMVASTATIN 40 MG TAB PO SCH (20:39)
[2020-06-02] MEDS: DULoxetine 30 MG CAP (CYMBALTA) PO SCH (20:39)
[2020-06-02] MEDS: LEVEMIR (INSULIN DETEMIR) 1 UNITS/0.01ML SC SCH (20:42)
[2020-06-02] MEDS: LATANOPROST 0.005% OPHTH SOLN 2.5 ML OU SCH (20:43)
[2020-06-02 22:00] VITALS: BP 141/62
[2020-06-03] MEDS: VANCOMYCIN ORAL SOL 250MG/5ML ORAL SYRINGE PO SCH ×3 (00:04→12:28)
[2020-06-03] MEDS: HumaLOG INSULIN (NovoLOG) PER UNIT SC SCH ×2 (07:30→12:28)
[2020-06-03 08:14] VITALS: BP 147/58
[2020-06-03] MEDS: CARVedilol 6.25 MG TAB PO SCH (08:14)
[2020-06-03] MEDS: CALCITRIOL 0.25 MCG CAP (S0169) PO SCH (08:14)
[2020-06-03] MEDS: allopurinoL 300 MG TAB PO SCH (08:15)
[2020-06-03] MEDS: LEVOTHYROXINE 112MCG TABLET (0.112MG) PO SCH (08:15)
[2020-06-03] MEDS: COSOPT OCUMETER PLUS 10ML (DORZOLAMIDE/TIMOLOL) OU SCH (08:15)
[2020-06-03] MEDS ORDERED: FIRV50SO PO (10:38)
--- NOTE | 2020-06-03 11:33 | DS.PDOC ---
Discharge Summary General Date of Admission May 31, 2020 at 04:05 Date of Discharge 06/03/2020 Attending Physician: LUCÍA FRENCH MD Specialist/Consultants Involve: THAD DEGROOT DO Discharge Summary PROCEDURES PERFORMED DURING STAY: None. ADMITTING DIAGNOSES: 1. Severe C. difficile colitis. 2. QING on CKD 3 3. Transient encephalopathy. 4. IDDM with neuropathy 5. Gout 6. Long-standing persistent atrial fibrillation. 7. Chronic HFpPEF/hypertensive heart disease. 8. Status hypothyroidism. 9. JOSE. 10. Obesity DISCHARGE DIAGNOSES: 1. Severe C. difficile colitis. 2. QING on CKD 3 3. Transient encephalopathy. 4. IDDM with neuropathy 5. Gout 6. Long-standing persistent atrial fibrillation. 7. Chronic HFpPEF/hypertensive heart disease. 8. Status hypothyroidism. 9. JOSE. 10. Obesity COMPLICATIONS/CHIEF COMPLAINT: C. Diff Colitis. HISTORY OF PRESENT ILLNESS: This 84 yr old F received her COVID vaccine 1 week ago and thereafter developed diarrhea associated with abdominal bloating, cramping abdominal pain, fever, fecal urgency and fecal incontinence. She is not sure how many BMs she had in the last 24H but reports having 3 BMs while in the ER. Her daughter brought her in bc she noticed that the pt has been confused. She was started on PO Vanc and IV Metro for C. dif colitis. HOSPITAL COURSE: This Ojeda was admitted on May 31 due to C. difficile colitis. Upon admission, she was given IV metronidazole every 8 hours and her home medications were continued. Patient was given 2 doses of metronidazole and then bridged over to oral vancomycin 500 mg every 6 hours on 05/31/2020. Warfarin was held due to increased INR at 3.14. With the patient's atrial fibrillation. Her therapeutic range is between 2-3. The patient's warfarin was restarted on 06/01/2020. As of 06/03/2020. Patient is still having increased bowel movements. They are not well-formed yet, but they are "less liquidy" than on admission per patient. Sliding scale insulin was also maintained throughout her hospital course. Pt's last dose of oral 500 mg vancomycin was on 06/03/2020. She was counseled on the contagious transmission of C. difficile during discharge counseling. She will be receiving oral vancomycin for the next 10 days, 125 mg every 6 hours. DISCHARGE MEDICATIONS: Please see below. ALLERGIES: Please see below. PHYSICAL EXAMINATION ON DISCHARGE: VITAL SIGNS: Please see below. GENERAL: No acute distress. Patient is well-developed and well-nourished in appearance. HEENT: No icterus, no pallor CARDIOVASCULAR: Regular rate and rhythm. No murmurs, rubs, or gallops. LUNGS: Inspiratory crackles and expiratory wheezes appreciated. Normal breath sounds. ABDOMEN: Obese. No abd tenderness to palpation. Increased bowel sounds in all four quadrants. MUSCULOSKELETAL: PEE x 4 INTEGUMENT: 2+ pitting edema to BLE below patella to feet bilaterally. Chronic venous stasis changes on both legs. NEUROLOGICAL: Speech not dysarthric PSYCHIATRIC: A&Ox 3/ able to understand and follow all commands LABORATORY DATA: Please see below. IMAGING: CT abd/pelvis (05/31/20): IMPRESSION: 1. Diffuse thickening of the colon. Consistent with infectious or inflammatory colitis. 2. Benign-appearing cysts bilaterally. No follow-up is necessary. 3. No bowel perforation. 4. Additional findings as described. Abd X-ray (05/31/20): "IMPRESSION: 1. No acute infiltrate. 2. No evidence of bowel obstruction. 3. Small air-fluid level in the left upper quadrant which is non- specific." Renal US (05/31/20): "IMPRESSION: 1. No hydronephrosis. 2. Simple bilateral renal cysts. No follow-up is necessary." Head CT (06/01/20): "IMPRESSION: No acute intracranial hemorrhage or calvarial fracture." PROGNOSIS: Fair ACTIVITY: As tolerated. DIET: Consistent carbohydrate diet DISCHARGE PLAN: Discharge home. DISCHARGE INSTRUCTIONS: 1. Please continue oral vancomycin 125 mg (2.5 mL syrup) every 6 hours for the next 10 days. 2. Please follow-up with PCP within the next 2 weeks. 3. Please report back to the ER if you develop worsening symptoms, heart palpitations, headache refractory to oral medications, refractory nausea or vomiting, dizziness, and or mental status changes. ITEMS TO FOLLOWUP ON ON OUTPATIENT: 1. Condition of C. difficile colitis. 2. Anticoagulation on Coumadin for atrial fibrillation. 3. Patient's other conditions including but not limited to, gout, hypothyroidism, diabetes mellitus, and dyslipidemia. DISCHARGE CONDITION: Stable. TIME SPENT ON DISCHARGE: Greater than 35 minutes. Vital Signs/I&Os Vital Signs Date Time Temp Pulse Resp B/P (MAP) Pulse Ox O2 Delivery O2 Flow Rate FiO2 06/03/20 08:14 69 147/58 06/03/20 06:00 97.6 18 94 06/02/20 14:00 Room Air I&O- Last 24 Hours up to 6 AM 06/03/20 06:00 Intake Total 2237 ml Output Total 1190 ml Balance 1047 ml Laboratory Data Labs 24H Laboratory Tests 2 06/02/20 16:40: Bedside Glucose (Misc Panel) 174H 06/02/20 19:36: Bedside Glucose (Misc Panel) 292H 06/03/20 05:05: Bedside Glucose (Misc Panel) 100 FSBS Laboratory Tests Test 06/02/20 16:40 06/02/20 19:36 06/03/20 05:05 Range/Units Bedside Glucose (Misc Panel) 174 292 100 83-110 MG/DL Microbiology Microbiology 05/31/20 Blood Culture - Preliminary, Resulted No Growth after 72 hours. All specime... 05/31/20 Blood Culture - Preliminary, Resulted No Growth after 72 hours. All specime... Discharge Medications Scheduled Allopurinol (Zyloprim) 300 Mg Tablet, 300 MG PO DAILY, (Reported) Calcitriol (Calcitriol) 0.25 Mcg Cap, 0.25 MCG PO 5XW, (Reported) TAKES SUNDAY THROUGH SUNDAY Carvedilol (Carvedilol) 6.25 Mg Tablet, 6.25 MG PO BID, (Reported) Cyclosporine (Restasis) 0.05% Droperette, 1 DROP OU BID, (Reported) Dorzolamide HCl/Timolol Maleat (Dorzolamide-Timolol Eye Drops) 1 Teresa Teresa, 1 DROP OU BID, (Reported) Duloxetine Hcl (Duloxetine HCl) 60 Mg Cap, 60 MG PO QHS, (Reported) Fosinopril Sodium (Fosinopril Sodium) 10 Mg Tablet, 10 MG PO QHS, (Reported) Gabapentin (Gabapentin) 800 Mg Tab, 800 MG PO QHS, (Reported) Insulin Glargine (Lantus) 100 Unit/Ml Inj, 60 UNIT INJ QHS, (Reported) 48 units in AM, 60 UNITS AT NIGHT Insulin Lispro (Humalog Kwikpen U-100) 100 Unit/1 Ml Insuln.pen, 1 DOSE SC ASDIRECTED, (Reported) PER SLIDING SCALE Latanoprost (Xalatan) 0.005% 2.5ML Drops, 1 DROP OU QHS, (Reported) Levothyroxine Sodium (Levothyroxine Sodium) 112 Mcg Tab, 112 MCG PO DAILY, (Reported) Magnesium Chloride (Mag64) 64 Mg Tabcr, 128 MG PO BID, (Reported) Simvastatin (Zocor) 40 Mg Tab, 40 MG PO QHS, (Reported) Torsemide (Torsemide) 20 Mg Tab, 20 MG PO BID, (Reported) Vancomycin HCl (Firvanq) 50 Mg/1 Ml Soln.recon, 125 MG PO Q6H Please take 2.5 mL every 6 hours for ten days. Warfarin Sodium (Warfarin Sodium) 5 Mg Tablet, 5 MG PO DAILY, (Reported) Allergies Coded Allergies: tramadol (Verified Allergy, Unknown, hives, 12/26/18) Quinolones (Verified Adverse Reaction, Unknown, reduces blood sugar drastically, 01/02/19) diazepam (Verified Adverse Reaction, Unknown, lethargic, 01/02/19) GME ATTESTATION GME ATTESTATION My faculty preceptor for this patient encounter was physically present during the encounter and was fully available. All aspects of the patient interview, examination, medical decision making process, and medical care plan development were reviewed and approved by the faculty preceptor. The faculty preceptor is aware and concurs with the plan as stated in the body of this note and will attest to such by his/her cosignature. Alvino Silva DO Jun 03, 2020 11:32
[2020-06-03 14:00] VITALS: BP 149/69
== END 2020-06-03 16:00 | disposition home or self-care (01) | DRG 372 ==
LOC: M ED 23:23 → M ED INP 05-31 04:05 → ENRESERV 05-31 04:26 → M MSPAV 05-31 05:15
PROVIDERS: ADMIT Internal Medicine; ATTEND Internal Medicine
DX: A04.72 Enterocolitis due to Clostridium difficile, not specified as recurrent (principal); N17.9 Acute kidney failure, unspecified; I13.0 Hypertensive heart and chronic kidney disease with heart failure and stage 1 through stage 4 chronic kidney disease, or unspecified chronic kidney disease; I50.32 Chronic diastolic (congestive) heart failure; I48.19 Other persistent atrial fibrillation; G93.40 Encephalopathy, unspecified; N18.30 Chronic kidney disease, stage 3 unspecified; M10.9 Gout, unspecified; E03.9 Hypothyroidism, unspecified; G47.33 Obstructive sleep apnea (adult) (pediatric); E66.9 Obesity, unspecified; E86.0 Dehydration; E11.22 Type 2 diabetes mellitus with diabetic chronic kidney disease; R53.81 Other malaise; E11.40 Type 2 diabetes mellitus with diabetic neuropathy, unspecified; I87.2 Venous insufficiency (chronic) (peripheral); Z96.653 Presence of artificial knee joint, bilateral; Z68.39 Body mass index [BMI] 39.0-39.9, adult; Z98.42 Cataract extraction status, left eye; Z79.4 Long term (current) use of insulin; Z79.899 Other long term (current) drug therapy; Z79.01 Long term (current) use of anticoagulants; Z88.5 Allergy status to narcotic agent; Z88.8 Allergy status to other drugs, medicaments and biological substances; Z88.1 Allergy status to other antibiotic agents

== ENCOUNTER 2020-06-07 15:53 | Emergency (ER) | payer MEDICARE ==
[~2020-06-07] VITALS: Ht 165.1 cm; Wt 102.3 kg
[~2020-06-07 15:53] MED LIST changes: +CARV6.25 PO; +FIRV50SO PO; +HUMA100I5 SC; +REST0.05 OU; +XALA0.007 OU; +ZYLO300T6 PO
[2020-06-07 17:28] LABS: BASO # 0.1 10^3/uL (0.0-0.2); BASO % 0.7 % (0.0-1.0); EOS # 0.5 10^3/uL (0.0-0.5); EOS % 4.4 % (0.0-3.0); HEMATOCRIT 38.7 % (36.0-47.0); HEMOGLOBIN 12.1 g/dl (12.0-15.5); LYMPH # 1.1 10^3/uL (1.5-5.0); LYMPH % 9.7 % (24.0-44.0); MEAN CORPUSCULAR HEMOGLOBIN 31.3 pg (27.0-33.0); MEAN CORPUSCULAR HGB CONC 31.3 g/dl (32.0-36.5); MONO # 0.8 10^3/uL (0.0-0.8); MONO % 6.5 % (2.0-8.0); NEUTROPHILS % 77.3 % (36.0-66.0); PLATELET COUNT, AUTOMATED 331 10^3/uL (150-450); RED BLOOD COUNT 3.87 10^6/uL (4.00-5.40); WHITE BLOOD COUNT 11.6 10^3/uL (4.0-10.0)
--- NOTE | 2020-06-07 17:36 | REP ---
INDICATION: DYSPNEA/COUGH COMPARISON: 03/09/2020 TECHNIQUE: Portable AP view of the chest FINDINGS: Mediastinum and cardiac silhouette are stable. Lung thornton demonstrate chronic appearing changes. Subtle basilar airspace disease cannot be excluded however, no focal consolidation, or effusion is appreciated. No pneumothorax. Skeletal structures are intact. IMPRESSION: Relatively chronic appearing changes. No focal consolidation or effusion. <Electronically signed by Horace Tapia > 06/07/20 [id number]
[2020-06-07 18:00] LABS: ALBUMIN 2.8 GM/DL (3.2-5.2); ALT/SGPT 32 U/L (12-78); BILIRUBIN,DIRECT < 0.1 MG/DL (0.0-0.2); BILIRUBIN,TOTAL 0.2 MG/DL (0.2-1.0); BLOOD UREA NITROGEN 26 MG/DL (7-18); CALCIUM LEVEL 8.7 MG/DL (8.8-10.2); CARBON DIOXIDE LEVEL 35 MEQ/L (21-32); CHLORIDE LEVEL 104 MEQ/L (98-107); CK-MB VALUE MASS 1.1 NG/ML (<3.6); CPK CREATINE PHOSPHOKINASE 54 U/L (26-192); CREATININE FOR GFR 1.18 MG/DL (0.55-1.30); GLOMERULAR FILTRATION RATE 46.2 (>32); GLUCOSE, FASTING 78 MG/DL (70-100); MB/CK RELATIVE INDEX 2.04 (< OR =4); NT-PRO BNP 369 PG/ML (<450); POTASSIUM SERUM 3.4 MEQ/L (3.5-5.1); SODIUM LEVEL 144 MEQ/L (136-145); TOTAL PROTEIN 6.1 GM/DL (6.4-8.2); TROPONIN I < 0.02 NG/ML (< 0.10)
[2020-06-07] MEDS ORDERED: TESS100C PO (19:05)
[2020-06-07 19:23] VITALS: BP 157/71
--- NOTE | 2020-06-08 07:09 | ECGEPIP ---
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
== END 2020-06-07 19:30 | disposition home or self-care (01) ==
LOC: M ED 15:53
DX: R05 Cough (principal); B34.8 Other viral infections of unspecified site; E11.9 Type 2 diabetes mellitus without complications; I12.9 Hypertensive chronic kidney disease with stage 1 through stage 4 chronic kidney disease, or unspecified chronic kidney disease; N18.9 Chronic kidney disease, unspecified; G47.33 Obstructive sleep apnea (adult) (pediatric); E78.5 Hyperlipidemia, unspecified; I48.91 Unspecified atrial fibrillation; H40.9 Unspecified glaucoma; Z79.899 Other long term (current) drug therapy; Z79.4 Long term (current) use of insulin; Z79.01 Long term (current) use of anticoagulants; Z88.1 Allergy status to other antibiotic agents; Z88.8 Allergy status to other drugs, medicaments and biological substances

== ENCOUNTER → 2020-07-26 | Outpatient (REF) | payer MEDICARE ==
[~2020-07-26] MED LIST changes: +TESS100C PO
== END ==
LOC: M LAB REF 16:12
PROVIDERS: ATTEND Internal Medicine
DX: L02.415 Cutaneous abscess of right lower limb (principal)

== ENCOUNTER 2020-07-29 15:51 | Emergency (ER) | payer MEDICARE ==
[~2020-07-29] VITALS: Ht 165.1 cm; Wt 103.1 kg
[2020-07-29 17:13] LABS: BASO # 0.1 10^3/uL (0.0-0.2); BASO % 0.9 % (0.0-1.0); EOS # 0.4 10^3/uL (0.0-0.5); EOS % 4.8 % (0.0-3.0); HEMOGLOBIN 13.6 g/dl (12.0-15.5); LYMPH # 1.2 10^3/uL (1.5-5.0); LYMPH % 15.1 % (24.0-44.0); MEAN CORPUSCULAR HEMOGLOBIN 32.9 pg (27.0-33.0); MEAN CORPUSCULAR HGB CONC 32.4 g/dl (32.0-36.5); MEAN CORPUSCULAR VOLUME 101.7 fl (80.0-96.0); MONO # 0.8 10^3/uL (0.0-0.8); MONO % 9.9 % (2.0-8.0); NEUTROPHILS # 5.6 10^3/uL (1.5-8.5); NEUTROPHILS % 68.8 % (36.0-66.0); PLATELET COUNT, AUTOMATED 239 10^3/uL (150-450); RED BLOOD COUNT 4.13 10^6/uL (4.00-5.40); WHITE BLOOD COUNT 8.2 10^3/uL (4.0-10.0)
[2020-07-29 17:40] LABS: ALBUMIN 3.4 GM/DL (3.2-5.2); BILIRUBIN,DIRECT 0.1 MG/DL (0.0-0.2); BILIRUBIN,TOTAL 0.4 MG/DL (0.2-1.0); C REACTIVE PROTEIN QUANTITATIV 4.48 MG/DL (0.00-0.30); CALCIUM LEVEL 9.5 MG/DL (8.8-10.2); CREATININE FOR GFR 1.29 MG/DL (0.55-1.30); GLOMERULAR FILTRATION RATE 41.7 (>32); TOTAL PROTEIN 6.3 GM/DL (6.4-8.2)
[2020-07-29 17:42] LABS: ERYTHROCYTE SEDIMENTATION RATE 31 mm/hr (0-30)
--- NOTE | 2020-07-29 18:04 | REP ---
INDICATION: assess left distal thigh for abscess; ?joint involvement. COMPARISON: None. TECHNIQUE: Real-time sonographic evaluation of left thigh performed in the region of pain, swelling and redness. FINDINGS: At the anteromedial distal thigh at the site of swelling and redness there is a hypoechoic area with surrounding hyperemia with Doppler evaluation. This measures 1.9 x 0.9 x 1.2 cm. There is adjacent soft tissue edema. This may represent a small abscess or area of phlegmonous change. Margins are somewhat ill-defined. IMPRESSION: Suspect small complex fluid collection/abscess in the anteromedial distal left thigh at the site of redness and swelling measuring 1.9 x 0.9 x 1.2 cm. Alternatively this could represent phlegmonous change. <Electronically signed by Lonnie Mares > 07/29/20 1800
[2020-07-29 18:29] VITALS: BP 158/73
--- NOTE | 2020-07-31 08:05 | ED PDOC ---
Post-Departure Follow-Up extrem us faxed to dr fajardo for fu Sabiha Stratton MD July 31, 2020 08:05
== END 2020-07-29 18:50 | disposition home or self-care (01) ==
LOC: M ED 15:51
DX: L03.116 Cellulitis of left lower limb (principal); E11.9 Type 2 diabetes mellitus without complications; I12.9 Hypertensive chronic kidney disease with stage 1 through stage 4 chronic kidney disease, or unspecified chronic kidney disease; N18.30 Chronic kidney disease, stage 3 unspecified; E78.5 Hyperlipidemia, unspecified; H40.9 Unspecified glaucoma; E03.9 Hypothyroidism, unspecified; Z79.899 Other long term (current) drug therapy; Z79.890 Hormone replacement therapy; Z79.4 Long term (current) use of insulin; Z79.01 Long term (current) use of anticoagulants

== ENCOUNTER → 2020-08-24 | Outpatient (CLI) | payer MEDICARE ==
[~2020-08-24] MED LIST changes: +GABA-283 PO; -GABA-845 PO
[2020-08-24 16:21] LABS: ALBUMIN 3.7 GM/DL (3.2-5.2); BILIRUBIN,TOTAL 0.4 MG/DL (0.2-1.0); CALCIUM LEVEL 9.6 MG/DL (8.8-10.2); CREATININE FOR GFR 1.2 MG/DL (0.55-1.30); GLOMERULAR FILTRATION RATE 45.3 (>32); POTASSIUM SERUM 4.1 MEQ/L (3.5-5.1); TOTAL PROTEIN 6.3 GM/DL (6.4-8.2)
== END ==
LOC: M LAB 15:08
PROVIDERS: ATTEND Dermatology
DX: L02.416 Cutaneous abscess of left lower limb (principal); R21 Rash and other nonspecific skin eruption
CPT/HCPCS: 11104; 36415; 80053; 87070; 87077; 87186; 87205; 88305; G0463

== ENCOUNTER 2020-11-04 22:03 | Emergency (ER) | payer MEDICARE ==
[~2020-11-04] VITALS: Ht 165.1 cm; Wt 99.5 kg
[~2020-11-04 22:03] MED LIST changes: -CYMB60CA3 PO; +CYMB60CA4 PO; -FOSI10TA4 PO; +FOSI10TA44 PO; -FOSI40TA3 PO; +FOSI40TA59 PO
[2020-11-05 00:25] LABS: INR 2.61; PROTHROMBIN TIME 28.3 SECONDS (12.7-14.5)
[2020-11-05 00:26] LABS: PARTIAL THROMBOPLASTIN TIME 56.2 SECONDS (25.9-37.0)
[2020-11-05 00:28] LABS: BASO # 0.1 10^3/uL (0.0-0.2); BASO % 1.4 % (0.0-1.0); EOS # 0.9 10^3/uL (0.0-0.5); EOS % 14.2 % (0.0-3.0); HEMATOCRIT 41.2 % (36.0-47.0); HEMOGLOBIN 13.6 g/dl (12.0-15.5); LYMPH # 1.1 10^3/uL (1.5-5.0); LYMPH % 16.2 % (24.0-44.0); MEAN CORPUSCULAR HEMOGLOBIN 33.3 pg (27.0-33.0); MONO # 0.8 10^3/uL (0.0-0.8); MONO % 11.3 % (2.0-8.0); NEUTROPHILS # 3.7 10^3/uL (1.5-8.5); NEUTROPHILS % 56.3 % (36.0-66.0); PLATELET COUNT, AUTOMATED 235 10^3/uL (150-450); RED BLOOD COUNT 4.08 10^6/uL (4.00-5.40); WHITE BLOOD COUNT 6.6 10^3/uL (4.0-10.0)
[2020-11-05 00:34] LABS: ERYTHROCYTE SEDIMENTATION RATE 25 mm/hr (0-30)
[2020-11-05 00:51] LABS: ALBUMIN 3.4 GM/DL (3.2-5.2); BILIRUBIN,DIRECT 0.1 MG/DL (0.0-0.2); BILIRUBIN,TOTAL 0.4 MG/DL (0.2-1.0); C REACTIVE PROTEIN QUANTITATIV 2.13 MG/DL (0.00-0.30); CALCIUM LEVEL 8.6 MG/DL (8.8-10.2); CREATININE FOR GFR 1.34 MG/DL (0.55-1.30); GLOMERULAR FILTRATION RATE 39.9 (>32); TOTAL PROTEIN 5.9 GM/DL (6.4-8.2)
[2020-11-05] MEDS ORDERED: FUROSEMIDE 100MG/10ML VIAL (J1940) IV ONE (03:00)
[2020-11-05] MEDS ORDERED: VANCOMYCIN HCL 1,000 MG, VIAL MATE ADAPTER 1 EACH in NS 250 ML IV ONE (03:00)
[2020-11-05 06:00] VITALS: BP 159/72
[2020-11-05] MEDS ORDERED: DOXY-443 PO (06:11)
== END 2020-11-05 06:20 | disposition home or self-care (01) ==
LOC: M ED 22:03
DX: L03.119 Cellulitis of unspecified part of limb (principal); I48.91 Unspecified atrial fibrillation; E11.40 Type 2 diabetes mellitus with diabetic neuropathy, unspecified; N18.30 Chronic kidney disease, stage 3 unspecified; E03.9 Hypothyroidism, unspecified; Z79.4 Long term (current) use of insulin; Z79.899 Other long term (current) drug therapy; Z88.5 Allergy status to narcotic agent; Z88.8 Allergy status to other drugs, medicaments and biological substances
CPT/HCPCS: 71045; 80048; 80076; 83605; 83880; 85025; 85610; 85652; 85730; 86140; 87040; 87070; 87077; 87186; 87205; 93041; 93970; 94760; 96365; 96375; 99285; J1940; J3370

== ENCOUNTER → 2020-11-22 | Outpatient (CLI) | payer MEDICARE ==
[~2020-11-22] MED LIST changes: +CYMB60CA3 PO; -CYMB60CA4 PO; +DOXY1CAP62 PO; +FOSI10TA4 PO; -FOSI10TA44 PO; +FOSI40TA3 PO; -FOSI40TA59 PO
[2020-11-22 18:48] LABS: ALBUMIN 3.3 GM/DL (3.2-5.2); CALCIUM LEVEL 9.6 MG/DL (8.8-10.2); CREATININE FOR GFR 1.75 MG/DL (0.55-1.30); GLOMERULAR FILTRATION RATE 29.3 (>32); PHOSPHORUS LEVEL 2.9 MG/DL (2.5-4.9); POTASSIUM SERUM 4.7 MEQ/L (3.5-5.1)
== END ==
LOC: M LAB 17:02
PROVIDERS: ATTEND Internal Medicine Nephrology
DX: N18.32 Chronic kidney disease, stage 3b (principal)

== ENCOUNTER 2020-12-05 23:24 | Emergency (ER) | payer MEDICARE ==
[~2020-12-05] VITALS: Ht 165.1 cm; Wt 101.8 kg
[2020-12-05 23:25] VITALS: BP 135/63
== END 2020-12-05 23:40 | disposition left against medical advice (07) ==
LOC: M ED 23:24
DX: Z53.29 Procedure and treatment not carried out because of patient's decision for other reasons (principal)

== ENCOUNTER 2021-01-16 13:08 | Emergency (ER) | payer MEDICARE ==
[~2021-01-16] VITALS: Ht 165.1 cm; Wt 100.9 kg
[~2021-01-16 13:08] MED LIST changes: -CYMB60CA3 PO; +CYMB60CA4 PO; +DOXY-443 PO; -DOXY1CAP62 PO
[2021-01-16] MEDS ORDERED: IBUPROFEN 600MG TAB PO ONE (14:00)
--- NOTE | 2021-01-16 14:02 | REP ---
INDICATION: fever COMPARISON: 11/05/2020 TECHNIQUE: Portable AP view of the chest FINDINGS: The mediastinum and cardiac silhouette are stable and within normal limits for portable technique. The lung thornton are clear without acute consolidation, effusion, or pneumothorax. Skeletal structures are intact. IMPRESSION: No acute cardiopulmonary process appreciated. <Electronically signed by Horace Tapia > 01/16/21 [id number]
[2021-01-16 14:42] LABS: BASO # 0.1 10^3/uL (0.0-0.2); BASO % 0.7 % (0.0-1.0); EOS # 0.1 10^3/uL (0.0-0.5); EOS % 1.6 % (0.0-3.0); HEMATOCRIT 40.7 % (36.0-47.0); HEMOGLOBIN 13.4 g/dl (12.0-15.5); LYMPH # 0.4 10^3/uL (1.5-5.0); LYMPH % 4.6 % (24.0-44.0); MEAN CORPUSCULAR HEMOGLOBIN 32.6 pg (27.0-33.0); MEAN CORPUSCULAR HGB CONC 32.9 g/dl (32.0-36.5); MONO # 0.6 10^3/uL (0.0-0.8); MONO % 6.8 % (2.0-8.0); NEUTROPHILS # 7.6 10^3/uL (1.5-8.5); NEUTROPHILS % 86.1 % (36.0-66.0); PLATELET COUNT, AUTOMATED 251 10^3/uL (150-450); RED BLOOD COUNT 4.11 10^6/uL (4.00-5.40); WHITE BLOOD COUNT 8.9 10^3/uL (4.0-10.0)
[2021-01-16 14:46] LABS: ABG BASE EXCESS 5.4 (-2.0-2.0); ABG O2 SATURATION 98.7 % (95.0-99.0); ABG PARTIAL PRESSURE CO2 48.9 mmHg (35.0-45.0); ABG PARTIAL PRESSURE O2 149.3 mmHg (75.0-100.0); ABG STANDARD HCO3 29.4 MEQ/L (22.0-26.0); ABG TOTAL CO2 32.5 MEQ/L (23.0-31.0)
[2021-01-16 14:46] LABS: INR 2.57
[2021-01-16 14:47] LABS: PARTIAL THROMBOPLASTIN TIME 63.6 SECONDS (25.9-37.0)
[2021-01-16] MEDS ORDERED: AMOX875T (14:53)
[2021-01-16 14:57] LABS: ALBUMIN 3.2 GM/DL (3.2-5.2); ALT/SGPT 21 U/L (12-78); BILIRUBIN,DIRECT 0.4 MG/DL (0.0-0.2); BILIRUBIN,TOTAL 1.1 MG/DL (0.2-1.0); BLOOD UREA NITROGEN 33 MG/DL (7-18); CALCIUM LEVEL 8.8 MG/DL (8.8-10.2); CARBON DIOXIDE LEVEL 33 MEQ/L (21-32); CHLORIDE LEVEL 101 MEQ/L (98-107); CK-MB VALUE MASS 1.3 NG/ML (<3.6); CPK CREATINE PHOSPHOKINASE 89 U/L (26-192); CREATININE FOR GFR 1.45 MG/DL (0.55-1.30); FREE T4 0.97 NG/DL (0.76-1.46); GLOMERULAR FILTRATION RATE 36.4 (>32); GLUCOSE, FASTING 218 MG/DL (70-100); MB/CK RELATIVE INDEX 1.46 (< OR =4); POTASSIUM SERUM 3.3 MEQ/L (3.5-5.1); SODIUM LEVEL 139 MEQ/L (136-145); THYROID STIMULATING HORMONE 0.555 uIU/ML (0.358-3.740); TOTAL PROTEIN 6.2 GM/DL (6.4-8.2); TROPONIN I < 0.02 NG/ML (< 0.10)
[2021-01-16] MEDS ORDERED: POTASSIUM CHLORIDE 10MEQ SR TABLET PO ONE (15:10)
[2021-01-16] MEDS ORDERED: ISOVUE-370 76% 100ML VIAL As Ordered ONE (15:28)
[2021-01-16] MEDS ORDERED: ACETAMINOPHEN TAB 650MG DOSE (2X325MG) PO ONE (17:55)
--- NOTE | 2021-01-16 18:10 | REPVR ---
PROCEDURE INFORMATION: Exam: CT Neck With Contrast Exam date and time: 01/16/2021 4:55 PM Age: 85 years old Clinical indication: Other: Sore throat; Additional info: Fever sore throat R/O deep abscess TECHNIQUE: Imaging protocol: Computed tomography images of the neck with contrast. Radiation optimization: All CT scans at this facility use at least one of these dose optimization techniques: automated exposure control; mA and/or kV adjustment per patient size (includes targeted exams where dose is matched to clinical indication); or iterative reconstruction. Contrast material: ISOVUE 370; Contrast volume: 75 ml; Contrast route: INTRAVENOUS (IV); COMPARISON: CT Spine,cervical w/o contrast 06/29/2016 5:08 PM FINDINGS: No focal subcutaneous soft tissue swelling. Parapharyngeal and posterior nasopharynx soft tissue planes are symmetric. No asymmetric enlargement or inflammation of the pharyngeal tonsils. No evidence of soft tissue abscess Vascular structures of the neck enhance normally. No abnormally enlarged cervical chain or jugulodigastric lymph nodes. Muscles of mastication and strap muscles of the neck appear normal. Parotid and minor salivary glands are unremarkable. Floor of the mouth and tongue base soft tissues appear normal. Laryngeal structures appear normal. Thyroid gland shows no abnormality. Lung apices are normal. Bony structures are unremarkable for age. IMPRESSION: Unremarkable contrast enhanced CT of the neck soft tissues. Electronically signed by: Eric El On 01/16/2021 18:09:37 PM
[2021-01-16 18:30] VITALS: O2SAT 96
[2021-01-16 19:14] VITALS: BP 99/47
--- NOTE | 2021-01-16 19:58 | ECGEPIP ---
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
== END 2021-01-16 19:27 | disposition home or self-care (01) ==
LOC: EDBD 13:08 → M ED 13:08
DX: R50.9 Fever, unspecified (principal); B34.8 Other viral infections of unspecified site; I48.91 Unspecified atrial fibrillation; E11.9 Type 2 diabetes mellitus without complications; I10 Essential (primary) hypertension; K21.9 Gastro-esophageal reflux disease without esophagitis; M54.50 Low back pain, unspecified; G47.33 Obstructive sleep apnea (adult) (pediatric); K57.32 Diverticulitis of large intestine without perforation or abscess without bleeding; Z79.01 Long term (current) use of anticoagulants; Z79.4 Long term (current) use of insulin; Z79.899 Other long term (current) drug therapy; Z88.5 Allergy status to narcotic agent; Z88.8 Allergy status to other drugs, medicaments and biological substances
CPT/HCPCS: 36600; 51701; 70491; 71045; 80048; 80076; 81001; 82550; 82553; 82803; 83605; 84439; 84443; 84484; 85025; 85610; 85730; 87040; 87430; 87798; 93005; 93041; 99285; Q9967

== ENCOUNTER → 2021-02-02 | Outpatient (CLI) | payer MEDICARE ==
[~2021-02-02] MED LIST changes: +AMOX875T
--- NOTE | 2021-02-02 16:00 | REP ---
INDICATION: PAIN. COMPARISON: None TECHNIQUE: AP and frog-lateral views FINDINGS: There is mild to moderate asymmetric hip joint space narrowing. There is no prominent marginal osteophytosis, buttressing, fracture, dislocation, or subluxation. There is no evidence of a destructive osseous lesion. IMPRESSION: Chronic changes as described above. <Electronically signed by Yogi Turner > 02/02/21 [id number]
--- NOTE | 2021-02-02 16:48 | REP ---
INDICATION: PAIN. COMPARISON: None. TECHNIQUE: A single AP view of the pelvis was performed. FINDINGS: There is bilateral moderate asymmetric hip joint space narrowing without prominent marginal osteophytosis, fracture, dislocation, subluxation, or buttressing. Degenerative changes seen involving the sacroiliac joints and imaged portion of the spine. IMPRESSION: Chronic changes as described above. <Electronically signed by Yogi Turner > 02/02/21 [id number]
== END ==
LOC: M WUC 15:30
PROVIDERS: ATTEND Physician Assistant
DX: M25.551 Pain in right hip (principal); M16.11 Unilateral primary osteoarthritis, right hip

== ENCOUNTER → 2021-04-13 | Outpatient (CLI) | payer MEDICARE ==
[~2021-04-13] MED LIST changes: -FOSI10TA4 PO; +FOSI10TA44 PO; -FOSI40TA3 PO; +FOSI40TA59 PO
== END ==
LOC: M RAD 10:47
PROVIDERS: ATTEND Nurse Practitioner Adult Health
DX: R51.9 Headache, unspecified (principal)

== ENCOUNTER → 2021-05-04 | Outpatient (REF) | payer MEDICARE | LOC: M LAB REF 17:15 | PROVIDERS: ATTEND Nurse Practitioner Family | DX: R21 Rash and other nonspecific skin eruption (principal) ==

== ENCOUNTER → 2021-06-29 | Outpatient (CLI) | payer MEDICARE | LOC: M WUC 12:52 | PROVIDERS: ATTEND Physician Assistant | DX: J20.9 Acute bronchitis, unspecified (principal); Z20.828 Contact with and (suspected) exposure to other viral communicable diseases ==

== ENCOUNTER → 2021-07-19 | Outpatient (REF) | payer MEDICARE ==
[2021-07-20 12:38] LABS: EOSINOPHILS 28 % (0-3); LYMPHOCYTES 17 % (16-44); MONOCYTES 4 % (0-5); NEUTROPHILS 50 % (28-66); PLATELET ESTIMATE NORMAL (NORMAL)
== END ==
LOC: M LAB REF 11:56
PROVIDERS: ATTEND Internal Medicine
DX: D72.9 Disorder of white blood cells, unspecified (principal)

== ENCOUNTER → 2021-10-24 | Outpatient (CLI) | payer MEDICARE | LOC: M RAD 16:01 | PROVIDERS: ATTEND Registered Nurse | DX: R22.32 Localized swelling, mass and lump, left upper limb (principal) ==

== ENCOUNTER → 2021-11-11 | Outpatient (CLI) | payer MEDICARE | LOC: M WUC 15:29 | PROVIDERS: ATTEND Internal Medicine | DX: R06.02 Shortness of breath (principal) ==

== ENCOUNTER → 2021-12-04 | Outpatient (CLI) | payer MEDICARE ==
[2021-12-04 16:49] LABS: ALBUMIN 3.9 GM/DL (3.2-5.2); CALCIUM LEVEL 9.7 MG/DL (8.8-10.2); CREATININE FOR GFR 1.61 MG/DL (0.55-1.30); GLOMERULAR FILTRATION RATE 32.2 (>32); PHOSPHORUS LEVEL 2.3 MG/DL (2.5-4.9); POTASSIUM SERUM 4.1 MEQ/L (3.5-5.1)
== END ==
LOC: M LAB 15:22
PROVIDERS: ATTEND Student in an Organized Health Care Education/Training Program
DX: U07.1 COVID-19 (principal)

== ENCOUNTER → 2022-01-02 | Outpatient (CLI) | payer MEDICARE | LOC: M WUC 13:14 | PROVIDERS: ATTEND Physician Assistant | DX: M54.50 Low back pain, unspecified (principal); M54.32 Sciatica, left side ==

== ENCOUNTER → 2022-01-09 | Outpatient (CLI) | payer MEDICARE ==
[2022-01-09 19:52] LABS: HEMATOCRIT 37.6 % (36.0-47.0); MEAN CORPUSCULAR HEMOGLOBIN 33.1 pg (27.0-33.0); MEAN CORPUSCULAR HGB CONC 31.9 g/dl (32.0-36.5); MEAN CORPUSCULAR VOLUME 103.6 fl (80.0-96.0); PLATELET COUNT, AUTOMATED 283 10^3/uL (150-450); RED BLOOD COUNT 3.63 10^6/uL (4.00-5.40); WHITE BLOOD COUNT 9.8 10^3/uL (4.0-10.0)
== END ==
LOC: M LAB 18:28
PROVIDERS: ATTEND Physician Assistant
DX: I48.0 Paroxysmal atrial fibrillation (principal)

== ENCOUNTER → 2022-01-26 | Outpatient (CLI) | payer MEDICARE | LOC: M WUC 14:17 | PROVIDERS: ATTEND Physician Assistant Medical | DX: J18.9 Pneumonia, unspecified organism (principal) ==

== ENCOUNTER → 2022-04-06 | Outpatient (CLI) | payer MEDICARE ==
[~2022-04-06] MED LIST changes: +E-Z-GAS II EFFERVESCENT PACKET (SODIUM BICARB./CITRIC ACID/SIMETHICONE) As Ordered ONE; +E-Z-HD 98% w/w 340GM SUSP BTL As Ordered ONE; +E-Z-PAQUE 96% w/w SUSP 176GM BTL As Ordered ONE
== END ==
LOC: M RAD 07:52
PROVIDERS: ATTEND Internal Medicine Gastroenterology
DX: R13.10 Dysphagia, unspecified (principal)

== ENCOUNTER → 2022-05-15 | Outpatient (CLI) | payer MEDICARE ==
[~2022-05-15] MED LIST changes: -E-Z-GAS II EFFERVESCENT PACKET (SODIUM BICARB./CITRIC ACID/SIMETHICONE) As Ordered ONE; -E-Z-HD 98% w/w 340GM SUSP BTL As Ordered ONE; -E-Z-PAQUE 96% w/w SUSP 176GM BTL As Ordered ONE
== END ==
LOC: M RAD 16:53
PROVIDERS: ATTEND Internal Medicine Nephrology
DX: R05.9 Cough, unspecified (principal)

== ENCOUNTER → 2022-06-12 | Outpatient (REF) | payer MEDICARE ==
[~2022-06-12] MED LIST changes: +SIMV-254 PO; -ZOCO40TA PO
[2022-06-12 18:26] LABS: POTASSIUM SERUM 4.9 MMOL/L (3.5-5.1)
== END ==
LOC: M LAB REF 17:01
PROVIDERS: ATTEND Internal Medicine Nephrology
DX: N18.32 Chronic kidney disease, stage 3b (principal)

== ENCOUNTER → 2022-07-07 | Outpatient (REF) | payer MEDICARE | LOC: M SFHCWOUN 16:15 | PROVIDERS: ATTEND Physician Assistant | DX: E11.622 Type 2 diabetes mellitus with other skin ulcer (principal); L97.812 Non-pressure chronic ulcer of other part of right lower leg with fat layer exposed ==

== ENCOUNTER → 2022-07-19 | Outpatient (CLI) | payer MEDICARE | LOC: M RAD 14:37 | PROVIDERS: ATTEND Otolaryngology | DX: J31.0 Chronic rhinitis (principal); R05.9 Cough, unspecified; L97.822 Non-pressure chronic ulcer of other part of left lower leg with fat layer exposed; L97.812 Non-pressure chronic ulcer of other part of right lower leg with fat layer exposed ==

== ENCOUNTER → 2022-08-29 | Outpatient (REF) | payer MEDICARE ==
[2022-08-30 12:43] LABS: C REACTIVE PROTEIN QUANTITATIV 4.5 MG/DL (<1.0)
[2022-08-30 12:45] LABS: RHEUMATOID FACTOR QUANT 6.4 IU/ML (<14)
[2022-08-30 15:20] LABS: ATYPICAL LYMPH 2 % (0-5); EOSINOPHILS 2 % (0-3); LYMPHOCYTES 9 % (16-44); MONOCYTES 3 % (0-5); NEUTROPHILS 81 % (28-66)
[2022-08-30 15:21] LABS: ANISOCYTOSIS 1+
[2022-08-30 15:29] LABS: PLATELET ESTIMATE NORMAL (NORMAL)
[2022-08-31 13:09] LABS: ANTINUCLEAR ANTIBODIES DIRECT Negative (Negative)
[2022-08-31 23:07] LABS: CYCLIC CITRULLINATED PEPTIDE 4 units (0-19)
== END ==
LOC: M LAB REF 12:10
PROVIDERS: ATTEND Internal Medicine
DX: L08.0 Pyoderma (principal); D72.9 Disorder of white blood cells, unspecified

== ENCOUNTER → 2022-09-08 | Outpatient (CLI) | payer MEDICARE ==
[2022-09-08 11:59] LABS: BASO # 0.1 10^3/uL (0.0-0.2); BASO % 0.8 % (0.0-1.0); EOS # 0.4 10^3/uL (0.0-0.5); EOS % 4.7 % (0.0-3.0); HEMATOCRIT 38.7 % (36.0-47.0); LYMPH % 10.8 % (24.0-44.0); MEAN CORPUSCULAR HEMOGLOBIN 31.1 pg (27.0-33.0); MEAN CORPUSCULAR VOLUME 100.3 fl (80.0-96.0); MONO # 0.8 10^3/uL (0.0-0.8); MONO % 8.3 % (2.0-8.0); NEUTROPHILS # 6.9 10^3/uL (1.5-8.5); NEUTROPHILS % 74.9 % (36.0-66.0); PLATELET COUNT, AUTOMATED 350 10^3/uL (150-450); RED BLOOD COUNT 3.86 10^6/uL (4.00-5.40); WHITE BLOOD COUNT 9.2 10^3/uL (4.0-10.0)
[2022-09-08 12:34] LABS: ALBUMIN 3.8 G/DL (3.2-5.2); ALKALINE PHOSPHATASE 131 U/L (46-116); ALT/SGPT 33 U/L (7.0-40); AST/SGOT 9 U/L (<34); BILIRUBIN,TOTAL 0.3 MG/DL (0.3-1.2); BLOOD UREA NITROGEN 86 MG/DL (9-23); CALCIUM LEVEL 9.5 MG/DL (8.3-10.6); CARBON DIOXIDE LEVEL 39 MMOL/L (20-31); CHLORIDE LEVEL 95 MMOL/L (98-107); GLOMERULAR FILTRATION RATE 28.3 (>32); GLUCOSE, FASTING 179 MG/DL (74-106); POTASSIUM SERUM 3.4 MMOL/L (3.5-5.1); RHEUMATOID FACTOR QUANT < 3.5 IU/ML (<14); SODIUM LEVEL 138 MMOL/L (136-145); TOTAL PROTEIN 6.2 G/DL (5.7-8.2)
[2022-09-08 12:45] LABS: HEPATITIS B SURFACE ANTIGEN NEGATIVE (NEGATIVE)
[2022-09-08 12:58] LABS: HIV 1&2 SCREEN NEGATIVE (NEGATIVE)
[2022-09-08 13:06] LABS: HEPATITIS C VIRUS ABY INDEX 0.1 INDEX (<0.8)
[2022-09-08 13:07] LABS: HEPATITIS B CORE ANTIBODY IGM NEGATIVE (NEGATIVE)
[2022-09-22 12:09] LABS: FACTOR V 103 % (70-150)
== END ==
LOC: M LAB 11:00
PROVIDERS: ATTEND Dermatology
DX: L08.0 Pyoderma (principal)

== ENCOUNTER → 2022-09-22 | Outpatient (CLI) | payer MEDICARE | LOC: M LAB 10:50 | PROVIDERS: ATTEND Dermatology | DX: L08.0 Pyoderma (principal) ==

== ENCOUNTER → 2022-10-04 | Outpatient (CLI) | payer MEDICARE | LOC: M RAD 12:13 | PROVIDERS: ATTEND Physician Assistant | DX: I87.2 Venous insufficiency (chronic) (peripheral) (principal); R60.0 Localized edema ==

== ENCOUNTER 2022-11-02 00:31 | Inpatient (IN) | payer MEDICARE ==
[~2022-11-02] VITALS: Ht 165.1 cm; Wt 102.5 kg
[~2022-11-02 00:31] MED LIST changes: -GABA-283 PO; +GABA-284 PO; +INSULADS SC
[2022-11-02 01:13] LABS: BASO # 0.1 10^3/uL (0.0-0.2); BASO % 0.3 % (0.0-1.0); EOS # 0.1 10^3/uL (0.0-0.5); EOS % 0.4 % (0.0-3.0); HEMOGLOBIN 13.5 g/dl (12.0-15.5); LYMPH # 0.8 10^3/uL (1.5-5.0); LYMPH % 4.8 % (24.0-44.0); MEAN CORPUSCULAR HEMOGLOBIN 29.9 pg (27.0-33.0); MEAN CORPUSCULAR HGB CONC 30.7 g/dl (32.0-36.5); MEAN CORPUSCULAR VOLUME 97.6 fl (80.0-96.0); MONO # 0.5 10^3/uL (0.0-0.8); NEUTROPHILS # 15.6 10^3/uL (1.5-8.5); NEUTROPHILS % 89.3 % (36.0-66.0); PLATELET COUNT, AUTOMATED 261 10^3/uL (150-450); RED BLOOD COUNT 4.51 10^6/uL (4.00-5.40); WHITE BLOOD COUNT 17.4 10^3/uL (4.0-10.0)
[2022-11-02] MEDS ORDERED: VANCOMYCIN HCL 1,000 MG in IV FLUID PLACE HOLDER 1 EA IV ONE (02:20)
[2022-11-02] MEDS ORDERED: PIPERACILLIN/TAZOBACTAM SOD 4.5 GM in D5W MINI-BAG PLUS 50 ML IV ONE (02:20)
[2022-11-02] MEDS ORDERED: VANCOMYCIN HCL 1,000 MG, VIAL MATE ADAPTER 1 EACH in D5W 250 ML IV ONE ×2 (03:00→04:00)
[2022-11-02 03:15] LABS: ALBUMIN 2.4 G/DL (3.2-5.2); BILIRUBIN,DIRECT 0.2 MG/DL (<0.4); BILIRUBIN,TOTAL 0.5 MG/DL (0.3-1.2); CALCIUM LEVEL 8.8 MG/DL (8.3-10.6); CREATININE FOR GFR 1.95 MG/DL (0.55-1.30); GLOMERULAR FILTRATION RATE 25.8 (>32); POTASSIUM SERUM 3.1 MMOL/L (3.5-5.1); TOTAL PROTEIN 4.9 G/DL (5.7-8.2)
[2022-11-02 03:17] LABS: THYROID STIMULATING HORMONE 1.34 uIU/ML (0.55-4.78)
[2022-11-02 03:40] LABS: APPEARANCE, URINE HAZY (CLEAR); BACTERIA, URINE AUTO 2+ (NEGATIVE); BILIRUBIN, URINE AUTO NEGATIVE (NEGATIVE); BLOOD, URINE BLOOD NEGATIVE (NEGATIVE); COLOR, URINE YELLOW (YELLOW); GLUCOSE, URINE (UA) AUTO NEGATIVE (NEGATIVE); KETONE, URINE AUTO NEGATIVE (NEGATIVE); LEUKOCYTE ESTERASE, URINE AUTO 3+ (NEGATIVE); MUCUS, URINE SMALL (NEGATIVE); NITRITE, URINE AUTO NEGATIVE (NEGATIVE); PROTEIN, URINE AUTO NEGATIVE (NEGATIVE); RBC, URINE AUTO 5 /HPF (0-3); SPECIFIC GRAVITY URINE AUTO 1.015 (1.002-1.035); SQUAMOUS EPITHELIAL CELL UR AU 2 /HPF (0-6); UROBILINOGEN, URINE AUTO 0.2 mg/dL (0.0-2.0); WBC, URINE AUTO 28 /HPF (0-3)
[2022-11-02] MEDS ORDERED: POTASSIUM CHLORIDE 10% LIQ 20MEQ/15ML UDC PO ONE (03:45)
[2022-11-02] MEDS ORDERED: DEXTROSE 50% 50ML SYRINGE IV STA (03:50)
[2022-11-02] MEDS ORDERED: DEXTROSE 50% 50ML SYRINGE As Ordered ONE (03:51)
[2022-11-02] MEDS ORDERED: FLUCONAZOLE 50MG TABLET PO ONE (04:25)
[2022-11-02] MEDS ORDERED: DEXTROSE 50% 50ML SYRINGE IV PRN (04:25)
[2022-11-02] MEDS ORDERED: SODIUM CHLORIDE 0.9% 1000ML IV SCH (04:25)
[2022-11-02] MEDS ORDERED: GLUCAGON INJ 1MG VIAL SC PRN (04:25)
[2022-11-02] MEDS ORDERED: GLUCOSE 4GM CHEW TABLET PO PRN (04:25)
[2022-11-02] MEDS ORDERED: VANCOMYCIN HCL 1,500 MG, VIAL MATE ADAPTER 1 EACH in NS 250 ML IV SCH (04:25)
[2022-11-02] MEDS ORDERED: D5W/0.9% SODIUM CHLORIDE 1,000 ML IV SCH (05:30)
[2022-11-02] MEDS ORDERED: OMEP40CA5 PO (06:06)
[2022-11-02] MEDS ORDERED: METO25TA PO (06:06)
[2022-11-02] MEDS ORDERED: RUTI500T PO (06:06)
[2022-11-02] MEDS ORDERED: PREG25CA PO ×2 (06:06)
[2022-11-02] MEDS ORDERED: POTA-298 PO (06:06)
[2022-11-02] MEDS ORDERED: METO1TAB7 PO (06:06)
[2022-11-02] MEDS ORDERED: LIDO5TD TOP (06:06)
[2022-11-02] MEDS ORDERED: NORT25CA2 PO (06:06)
[2022-11-02] MEDS ORDERED: TEMO0.0517 TOP (06:06)
[2022-11-02] MEDS ORDERED: TORS100T PO (06:06)
[2022-11-02] MEDS ORDERED: PRED20TA PO (06:06)
[2022-11-02] MEDS ORDERED: ELIQ2.5T PO (06:06)
[2022-11-02] MEDS ORDERED: ALBU2.5V10 INH (06:06)
[2022-11-02] MEDS ORDERED: FLON1SPR NARES (06:06)
[2022-11-02] MEDS ORDERED: NYST1POW9 TOP (06:06)
[2022-11-02] MEDS ORDERED: SYNT125T PO (06:06)
[2022-11-02] MEDS ORDERED: ALLO300T2 PO (06:06)
[2022-11-02] MEDS ORDERED: HOME MED LIST COMPLETE! XX SCH (06:10)
[2022-11-02] MEDS ORDERED: VANCOMYCIN INTERMITTENT/PULSE DOSING BY CLINICAL PHARMACIST PER DOSING PROTOCOL XX SCH (06:15)
[2022-11-02] MEDS ORDERED: ALBUTEROL SULFATE 2.5MG/0.5ML INH NEB SOLN NEB PRN (08:10)
[2022-11-02] MEDS ORDERED: HEPARIN SOD (PORCINE) 5000UNITS/ML 1ML VIAL/SYRINGE SC SCH (09:00)
[2022-11-02] MEDS: PREGABALIN 25 MG CAP (LYRICA) PO SCH ×3 (09:05→21:00)
[2022-11-02] MEDS: allopurinoL 300 MG TAB PO SCH (09:05)
[2022-11-02] MEDS: OMEPRAZOLE 20MG CAP PO SCH (09:06)
[2022-11-02] MEDS: NYSTATIN 500,000U/5ML SUSP UDC SS SCH ×4 (09:06→20:47)
[2022-11-02] MEDS: APIXABAN 2.5 MG TAB (ELIQUIS) PO SCH ×2 (09:06→20:48)
[2022-11-02] MEDS: METOPROLOL SUCC (TopROL XL) 50MG **XL** TAB PO SCH (09:06)
[2022-11-02] MEDS: predniSONE 20 MG TAB PO SCH (09:06)
[2022-11-02] MEDS: CALCITRIOL 0.25 MCG CAP (S0169) PO SCH (09:20)
[2022-11-02] MEDS: metOLazone 2.5 MG TAB PO SCH ×3 (09:21→16:47)
[2022-11-02] MEDS ORDERED: PIPERACILLIN/TAZOBACTAM SOD 2.25 GM in D5W MINI-BAG PLUS 50 ML IV SCH (10:00)
[2022-11-02 14:10] LABS: BASO % 0.2 % (0.0-1.0); EOS % 0.2 % (0.0-3.0); HEMOGLOBIN 11.9 g/dl (12.0-15.5); LYMPH # 0.3 10^3/uL (1.5-5.0); LYMPH % 2.5 % (24.0-44.0); MEAN CORPUSCULAR HEMOGLOBIN 29.9 pg (27.0-33.0); MEAN CORPUSCULAR HGB CONC 29.8 g/dl (32.0-36.5); MEAN CORPUSCULAR VOLUME 100.5 fl (80.0-96.0); MONO # 0.2 10^3/uL (0.0-0.8); MONO % 1.6 % (2.0-8.0); NEUTROPHILS # 11.6 10^3/uL (1.5-8.5); NEUTROPHILS % 92.9 % (36.0-66.0); PLATELET COUNT, AUTOMATED 214 10^3/uL (150-450); RED BLOOD COUNT 3.98 10^6/uL (4.00-5.40); WHITE BLOOD COUNT 12.5 10^3/uL (4.0-10.0)
[2022-11-02 14:36] LABS: CALCIUM LEVEL 8.5 MG/DL (8.3-10.6); CREATININE FOR GFR 1.58 MG/DL (0.55-1.30); GLOMERULAR FILTRATION RATE 32.9 (>32)
[2022-11-02 15:10] VITALS: BP 125/58; TEMP 98.3; O2SAT 96
[2022-11-02] MEDS: COSOPT OCUMETER PLUS 10ML (DORZOLAMIDE/TIMOLOL) OU SCH ×2 (16:44→20:47)
[2022-11-02 16:45] VITALS: BP 123/58; TEMP 97.4; O2SAT 95
[2022-11-02] MEDS: PIPERACILLIN/TAZOBACTAM SOD 3.375 GM in D5W MINI-BAG PLUS 50 ML IV SCH ×2 (16:50→22:08)
[2022-11-02] MEDS: INSULIN LISPRO (NovoLOG) PER UNIT SC SCH ×2 (18:31→21:01)
[2022-11-02 20:00] VITALS: BP 114/54; TEMP 96.4; O2SAT 93
[2022-11-02] MEDS ORDERED: VANCOMYCIN HCL 750 MG, VIAL MATE ADAPTER 1 EACH in D5W 250 ML IV SCH (20:00)
[2022-11-02] MEDS: LATANOPROST 0.005% OPHTH SOLN 2.5 ML OU SCH (20:47)
[2022-11-02] MEDS: LEVOTHYROXINE 125MCG TABLET (0.125MG) PO SCH (20:48)
[2022-11-02] MEDS: NORTRIPTYLINE 25 MG CAP PO SCH (20:48)
[2022-11-02] MEDS: SIMVASTATIN 40 MG TAB PO SCH (20:48)
[2022-11-02] MEDS ORDERED: VANCOMYCIN HCL 500 MG in D5W MINI-BAG PLUS 100 ML IV SCH (21:00)
[2022-11-02] MEDS ORDERED: LEVEMIR (INSULIN DETEMIR) 1 UNITS/0.01ML SC SCH (21:00)
[2022-11-02] MEDS ORDERED: NYSTATIN 100,000 UNITS/GM TOPICAL PWD 15GM TOP PRN (21:35)
[2022-11-03] VITALS: BP 108/55; TEMP 97.6; O2SAT 95
[2022-11-03] MEDS ORDERED: INSULIN LISPRO (NovoLOG) PER UNIT SC ONE (00:20)
[2022-11-03] MEDS: PIPERACILLIN/TAZOBACTAM SOD 3.375 GM in D5W MINI-BAG PLUS 50 ML IV SCH (03:13)
[2022-11-03 04:00] VITALS: BP 129/60; TEMP 96.6; O2SAT 93
[2022-11-03 05:33] LABS: CREATININE FOR GFR 1.43 MG/DL (0.55-1.30); GLOMERULAR FILTRATION RATE 36.9 (>32); POTASSIUM SERUM 3.7 MMOL/L (3.5-5.1)
[2022-11-03] MEDS ORDERED: LEVEMIR (INSULIN DETEMIR) 1 UNITS/0.01ML SC ONE (07:25)
[2022-11-03 07:42] LABS: HEMOGLOBIN 11.1 g/dl (12.0-15.5); MEAN CORPUSCULAR HEMOGLOBIN 30.2 pg (27.0-33.0); MEAN CORPUSCULAR HGB CONC 30.8 g/dl (32.0-36.5); MEAN CORPUSCULAR VOLUME 98.1 fl (80.0-96.0); PLATELET COUNT, AUTOMATED 210 10^3/uL (150-450); RED BLOOD COUNT 3.67 10^6/uL (4.00-5.40); WHITE BLOOD COUNT 9.4 10^3/uL (4.0-10.0)
[2022-11-03 07:54] VITALS: BP 126/58; TEMP 97.3; O2SAT 95
[2022-11-03] MEDS: CALCITRIOL 0.25 MCG CAP (S0169) PO SCH (08:46)
[2022-11-03] MEDS: metOLazone 2.5 MG TAB PO SCH (08:46)
[2022-11-03] MEDS: OMEPRAZOLE 20MG CAP PO SCH (08:46)
[2022-11-03] MEDS: allopurinoL 300 MG TAB PO SCH (08:46)
[2022-11-03] MEDS: APIXABAN 2.5 MG TAB (ELIQUIS) PO SCH ×2 (08:47→20:57)
[2022-11-03] MEDS: predniSONE 20 MG TAB PO SCH (08:47)
[2022-11-03] MEDS: METOPROLOL SUCC (TopROL XL) 50MG **XL** TAB PO SCH (08:48)
[2022-11-03] MEDS: INSULIN LISPRO (NovoLOG) PER UNIT SC SCH ×4 (08:49→20:59)
[2022-11-03] MEDS: NYSTATIN 500,000U/5ML SUSP UDC SS SCH ×4 (08:53→20:57)
[2022-11-03] MEDS: PREGABALIN 25 MG CAP (LYRICA) PO SCH ×3 (08:53→20:57)
[2022-11-03] MEDS: COSOPT OCUMETER PLUS 10ML (DORZOLAMIDE/TIMOLOL) OU SCH ×2 (08:54→21:00)
[2022-11-03] MEDS: CEPHALEXIN 500 MG CAP PO SCH ×4 (10:45→20:57)
[2022-11-03 11:09] VITALS: BP 148/65; TEMP 96.7; O2SAT 93
[2022-11-03] MEDS: TORSEMIDE 100 MG TAB PO SCH (12:13)
[2022-11-03 14:20] VITALS: BP 124/55; TEMP 97.7; O2SAT 91
[2022-11-03 20:37] VITALS: BP 120/55; TEMP 97.7; O2SAT 93
[2022-11-03] MEDS: SIMVASTATIN 40 MG TAB PO SCH (20:57)
[2022-11-03] MEDS: NORTRIPTYLINE 25 MG CAP PO SCH (20:57)
[2022-11-03] MEDS: LEVOTHYROXINE 125MCG TABLET (0.125MG) PO SCH (20:57)
[2022-11-03] MEDS: LATANOPROST 0.005% OPHTH SOLN 2.5 ML OU SCH (21:00)
[2022-11-03] MEDS ORDERED: LEVEMIR (INSULIN DETEMIR) 1 UNITS/0.01ML SC SCH (21:00)
[2022-11-04 05:13] VITALS: BP 140/67; TEMP 97.2; O2SAT 91
[2022-11-04] MEDS: CALCITRIOL 0.25 MCG CAP (S0169) PO SCH (08:37)
[2022-11-04] MEDS: predniSONE 20 MG TAB PO SCH (08:38)
[2022-11-04] MEDS: TORSEMIDE 100 MG TAB PO SCH (08:38)
[2022-11-04] MEDS: OMEPRAZOLE 20MG CAP PO SCH (08:38)
[2022-11-04] MEDS: PREGABALIN 25 MG CAP (LYRICA) PO SCH ×3 (08:38→22:34)
[2022-11-04] MEDS: NYSTATIN 500,000U/5ML SUSP UDC SS SCH ×4 (08:38→22:35)
[2022-11-04] MEDS: allopurinoL 300 MG TAB PO SCH (08:38)
[2022-11-04] MEDS: CEPHALEXIN 500 MG CAP PO SCH ×4 (08:38→22:34)
[2022-11-04] MEDS: APIXABAN 2.5 MG TAB (ELIQUIS) PO SCH ×2 (08:39→22:35)
[2022-11-04] MEDS: INSULIN LISPRO (NovoLOG) PER UNIT SC SCH ×3 (08:39→17:10)
[2022-11-04] MEDS: METOPROLOL SUCC (TopROL XL) 50MG **XL** TAB PO SCH (08:40)
[2022-11-04] MEDS: ACETAMINOPHEN TAB 650MG DOSE (2X325MG) PO PRN (08:40)
[2022-11-04] MEDS: COSOPT OCUMETER PLUS 10ML (DORZOLAMIDE/TIMOLOL) OU SCH ×2 (08:40→22:36)
[2022-11-04] MEDS: metOLazone 2.5 MG TAB PO SCH (08:42)
[2022-11-04] MEDS ORDERED: LEVEMIR (INSULIN DETEMIR) 1 UNITS/0.01ML SC SCH (21:00)
[2022-11-04] MEDS ORDERED: NS 500 ML IV ONE (22:00)
[2022-11-04] MEDS ORDERED: INSULIN LISPRO (NovoLOG) PER UNIT SC ONE ×3 (22:00→23:55)
[2022-11-04 22:08] LABS: CALCIUM LEVEL 8.8 MG/DL (8.3-10.6); CREATININE FOR GFR 1.7 MG/DL (0.55-1.30); GLOMERULAR FILTRATION RATE 30.2 (>32); POTASSIUM SERUM 3.9 MMOL/L (3.5-5.1)
[2022-11-04] MEDS ORDERED: NS 1,000 ML IV SCH (22:30)
[2022-11-04] MEDS: SIMVASTATIN 40 MG TAB PO SCH (22:33)
[2022-11-04] MEDS: NORTRIPTYLINE 25 MG CAP PO SCH (22:33)
[2022-11-04] MEDS: LEVOTHYROXINE 125MCG TABLET (0.125MG) PO SCH (22:34)
[2022-11-04] MEDS: LATANOPROST 0.005% OPHTH SOLN 2.5 ML OU SCH (22:37)
[2022-11-05 05:20] VITALS: BP 144/78; TEMP 96.8; O2SAT 92
[2022-11-05] MEDS: NYSTATIN 500,000U/5ML SUSP UDC SS SCH ×4 (08:19→20:46)
[2022-11-05] MEDS: allopurinoL 300 MG TAB PO SCH (08:19)
[2022-11-05] MEDS: METOPROLOL SUCC (TopROL XL) 50MG **XL** TAB PO SCH (08:20)
[2022-11-05] MEDS: APIXABAN 2.5 MG TAB (ELIQUIS) PO SCH ×2 (08:20→20:45)
[2022-11-05] MEDS: predniSONE 20 MG TAB PO SCH (08:20)
[2022-11-05] MEDS: TORSEMIDE 100 MG TAB PO SCH (08:20)
[2022-11-05] MEDS: CALCITRIOL 0.25 MCG CAP (S0169) PO SCH (08:20)
[2022-11-05] MEDS: CEPHALEXIN 500 MG CAP PO SCH ×4 (08:20→20:45)
[2022-11-05] MEDS: PREGABALIN 25 MG CAP (LYRICA) PO SCH ×3 (08:20→20:50)
[2022-11-05] MEDS: OMEPRAZOLE 20MG CAP PO SCH (08:20)
[2022-11-05] MEDS: metOLazone 2.5 MG TAB PO SCH (08:21)
[2022-11-05] MEDS: INSULIN LISPRO (NovoLOG) PER UNIT SC SCH ×3 (08:21→17:06)
[2022-11-05] MEDS: LEVEMIR (INSULIN DETEMIR) 1 UNITS/0.01ML SC SCH ×2 (08:21→20:44)
[2022-11-05] MEDS: COSOPT OCUMETER PLUS 10ML (DORZOLAMIDE/TIMOLOL) OU SCH ×2 (08:22→20:51)
[2022-11-05] MEDS: SIMVASTATIN 40 MG TAB PO SCH (20:44)
[2022-11-05] MEDS: LEVOTHYROXINE 125MCG TABLET (0.125MG) PO SCH (20:45)
[2022-11-05] MEDS: NORTRIPTYLINE 25 MG CAP PO SCH (20:50)
[2022-11-05] MEDS: LATANOPROST 0.005% OPHTH SOLN 2.5 ML OU SCH (20:51)
[2022-11-05] MEDS ORDERED: INSULIN LISPRO (NovoLOG) PER UNIT SC SCH (21:00)
[2022-11-06 06:00] VITALS: BP 123/66; TEMP 97.5; O2SAT 91
[2022-11-06] MEDS: OMEPRAZOLE 20MG CAP PO SCH (08:33)
[2022-11-06] MEDS: predniSONE 20 MG TAB PO SCH (08:34)
[2022-11-06] MEDS: allopurinoL 300 MG TAB PO SCH (08:34)
[2022-11-06] MEDS: metOLazone 2.5 MG TAB PO SCH (08:34)
[2022-11-06] MEDS: APIXABAN 2.5 MG TAB (ELIQUIS) PO SCH ×2 (08:34→21:12)
[2022-11-06] MEDS: CALCITRIOL 0.25 MCG CAP (S0169) PO SCH (08:34)
[2022-11-06] MEDS: PREGABALIN 25 MG CAP (LYRICA) PO SCH ×3 (08:34→21:11)
[2022-11-06] MEDS: TORSEMIDE 100 MG TAB PO SCH (08:34)
[2022-11-06] MEDS: NYSTATIN 500,000U/5ML SUSP UDC SS SCH ×4 (08:34→21:11)
[2022-11-06] MEDS: INSULIN LISPRO (NovoLOG) PER UNIT SC SCH ×4 (08:35→18:24)
[2022-11-06] MEDS: LEVEMIR (INSULIN DETEMIR) 1 UNITS/0.01ML SC SCH ×2 (08:35→21:11)
[2022-11-06] MEDS: METOPROLOL SUCC (TopROL XL) 50MG **XL** TAB PO SCH (08:35)
[2022-11-06] MEDS: COSOPT OCUMETER PLUS 10ML (DORZOLAMIDE/TIMOLOL) OU SCH ×2 (08:36→21:12)
[2022-11-06 17:06] LABS: HEMATOCRIT 44.4 % (36.0-47.0); HEMOGLOBIN 13.7 g/dl (12.0-15.5); MEAN CORPUSCULAR HEMOGLOBIN 30.2 pg (27.0-33.0); MEAN CORPUSCULAR HGB CONC 30.9 g/dl (32.0-36.5); MEAN CORPUSCULAR VOLUME 97.8 fl (80.0-96.0); PLATELET COUNT, AUTOMATED 308 10^3/uL (150-450); RED BLOOD COUNT 4.54 10^6/uL (4.00-5.40); WHITE BLOOD COUNT 11.8 10^3/uL (4.0-10.0)
[2022-11-06] MEDS ORDERED: INSULIN LISPRO (NovoLOG) PER UNIT SC SCH ×2 (17:30→21:00)
[2022-11-06 17:33] LABS: ALBUMIN 2.6 G/DL (3.2-5.2); ALKALINE PHOSPHATASE 121 U/L (46-116); ALT/SGPT 59 U/L (7.0-40); AST/SGOT 26 U/L (<34); BILIRUBIN,TOTAL 0.3 MG/DL (0.3-1.2); BLOOD UREA NITROGEN 78 MG/DL (9-23); CARBON DIOXIDE LEVEL > 40.0 MMOL/L (20-31); CHLORIDE LEVEL 87 MMOL/L (98-107); CREATININE FOR GFR 1.73 MG/DL (0.55-1.30); GLOMERULAR FILTRATION RATE 29.6 (>32); GLUCOSE, FASTING 560 MG/DL (74-106); POTASSIUM SERUM 3.6 MMOL/L (3.5-5.1); SODIUM LEVEL 134 MMOL/L (136-145); TOTAL PROTEIN 5.7 G/DL (5.7-8.2)
[2022-11-06] MEDS ORDERED: LEVEMIR (INSULIN DETEMIR) 1 UNITS/0.01ML SC SCH (21:00)
[2022-11-06] MEDS: LEVOTHYROXINE 125MCG TABLET (0.125MG) PO SCH (21:11)
[2022-11-06] MEDS: SIMVASTATIN 40 MG TAB PO SCH (21:12)
[2022-11-06] MEDS: LATANOPROST 0.005% OPHTH SOLN 2.5 ML OU SCH (21:12)
[2022-11-06] MEDS: NORTRIPTYLINE 25 MG CAP PO SCH (21:18)
[2022-11-07 06:00] VITALS: BP 130/59; TEMP 97.2; O2SAT 90
[2022-11-07] MEDS ORDERED: INSULIN LISPRO (NovoLOG) PER UNIT SC SCH (07:30)
[2022-11-07 09:00] LABS: ALBUMIN 2.6 G/DL (3.2-5.2); ALKALINE PHOSPHATASE 106 U/L (46-116); ALT/SGPT 60 U/L (7.0-40); AST/SGOT 23 U/L (<34); BILIRUBIN,TOTAL 0.4 MG/DL (0.3-1.2); BLOOD UREA NITROGEN 86 MG/DL (9-23); CALCIUM LEVEL 10.3 MG/DL (8.3-10.6); CARBON DIOXIDE LEVEL > 40.0 MMOL/L (20-31); CHLORIDE LEVEL 88 MMOL/L (98-107); CREATININE FOR GFR 1.76 MG/DL (0.55-1.30); GLUCOSE, FASTING 165 MG/DL (74-106); POTASSIUM SERUM 3.1 MMOL/L (3.5-5.1); SODIUM LEVEL 138 MMOL/L (136-145); TOTAL PROTEIN 5.5 G/DL (5.7-8.2)
[2022-11-07] MEDS: INSULIN LISPRO (NovoLOG) PER UNIT SC SCH ×6 (09:09→17:13)
[2022-11-07] MEDS: OMEPRAZOLE 20MG CAP PO SCH (09:10)
[2022-11-07] MEDS: LEVEMIR (INSULIN DETEMIR) 1 UNITS/0.01ML SC SCH ×2 (09:10→20:40)
[2022-11-07] MEDS: NYSTATIN 500,000U/5ML SUSP UDC SS SCH ×4 (09:10→20:37)
[2022-11-07] MEDS: predniSONE 10MG TAB PO SCH (09:10)
[2022-11-07] MEDS: allopurinoL 300 MG TAB PO SCH (09:11)
[2022-11-07] MEDS: PREGABALIN 25 MG CAP (LYRICA) PO SCH ×3 (09:11→20:38)
[2022-11-07] MEDS: CALCITRIOL 0.25 MCG CAP (S0169) PO SCH (09:11)
[2022-11-07] MEDS: APIXABAN 2.5 MG TAB (ELIQUIS) PO SCH ×2 (09:11→20:38)
[2022-11-07] MEDS: TORSEMIDE 100 MG TAB PO SCH (09:11)
[2022-11-07] MEDS: METOPROLOL SUCC (TopROL XL) 50MG **XL** TAB PO SCH (09:11)
[2022-11-07] MEDS: metOLazone 2.5 MG TAB PO SCH (09:13)
[2022-11-07] MEDS: COSOPT OCUMETER PLUS 10ML (DORZOLAMIDE/TIMOLOL) OU SCH ×2 (09:14→20:40)
[2022-11-07 14:00] VITALS: BP 127/60; TEMP 97.2; O2SAT 92
[2022-11-07 20:00] VITALS: BP 125/60; TEMP 97.2; O2SAT 92
[2022-11-07] MEDS ORDERED: HUMA100I5 SC (20:12)
[2022-11-07] MEDS ORDERED: GLUC1INJ21 SC (20:12)
[2022-11-07] MEDS ORDERED: INSUHUMDS SC ×3 (20:12)
[2022-11-07] MEDS ORDERED: DEXT50SY3 IV (20:12)
[2022-11-07] MEDS ORDERED: INSULADS SC (20:12)
[2022-11-07] MEDS ORDERED: PRED20TA PO (20:12)
[2022-11-07] MEDS: LEVOTHYROXINE 125MCG TABLET (0.125MG) PO SCH (20:38)
[2022-11-07] MEDS: NORTRIPTYLINE 25 MG CAP PO SCH (20:38)
[2022-11-07] MEDS: POTASSIUM CHLORIDE 10MEQ SR TABLET PO SCH ×2 (20:38→20:42)
[2022-11-07] MEDS: SIMVASTATIN 40 MG TAB PO SCH (20:39)
[2022-11-07] MEDS: LATANOPROST 0.005% OPHTH SOLN 2.5 ML OU SCH (20:40)
[2022-11-08 06:00] VITALS: BP 116/66; TEMP 97.3; O2SAT 90
[2022-11-08 06:32] LABS: ALBUMIN 2.6 G/DL (3.2-5.2); ALKALINE PHOSPHATASE 98 U/L (46-116); ALT/SGPT 61 U/L (7.0-40); AST/SGOT 25 U/L (<34); BILIRUBIN,TOTAL 0.5 MG/DL (0.3-1.2); BLOOD UREA NITROGEN 101 MG/DL (9-23); CARBON DIOXIDE LEVEL > 40.0 MMOL/L (20-31); CHLORIDE LEVEL 89 MMOL/L (98-107); GLOMERULAR FILTRATION RATE 23.7 (>32); GLUCOSE, FASTING 115 MG/DL (74-106); POTASSIUM SERUM 3.3 MMOL/L (3.5-5.1); SODIUM LEVEL 139 MMOL/L (136-145); TOTAL PROTEIN 5.5 G/DL (5.7-8.2)
[2022-11-08] MEDS: INSULIN LISPRO (NovoLOG) PER UNIT SC SCH ×5 (07:30→18:03)
[2022-11-08] MEDS: NYSTATIN 500,000U/5ML SUSP UDC SS SCH ×4 (09:55→21:00)
[2022-11-08] MEDS: CALCITRIOL 0.25 MCG CAP (S0169) PO SCH (09:55)
[2022-11-08] MEDS: predniSONE 10MG TAB PO SCH (09:56)
[2022-11-08] MEDS: POTASSIUM CHLORIDE 10MEQ SR TABLET PO SCH ×2 (09:56→12:30)
[2022-11-08] MEDS: allopurinoL 300 MG TAB PO SCH (09:57)
[2022-11-08] MEDS: TORSEMIDE 100 MG TAB PO SCH (09:57)
[2022-11-08] MEDS: APIXABAN 2.5 MG TAB (ELIQUIS) PO SCH (09:57)
[2022-11-08] MEDS: OMEPRAZOLE 20MG CAP PO SCH (09:57)
[2022-11-08] MEDS: PREGABALIN 25 MG CAP (LYRICA) PO SCH ×3 (09:57→21:00)
[2022-11-08] MEDS: COSOPT OCUMETER PLUS 10ML (DORZOLAMIDE/TIMOLOL) OU SCH ×2 (09:59→22:17)
[2022-11-08] MEDS: METOPROLOL SUCC (TopROL XL) 50MG **XL** TAB PO SCH (10:00)
[2022-11-08] MEDS: LEVEMIR (INSULIN DETEMIR) 1 UNITS/0.01ML SC SCH ×2 (10:15→21:00)
[2022-11-08 11:40] LABS: MEAN CORPUSCULAR HEMOGLOBIN 29.8 pg (27.0-33.0); MEAN CORPUSCULAR HGB CONC 30.4 g/dl (32.0-36.5); MEAN CORPUSCULAR VOLUME 97.9 fl (80.0-96.0); PLATELET COUNT, AUTOMATED 322 10^3/uL (150-450); WHITE BLOOD COUNT 9.5 10^3/uL (4.0-10.0)
[2022-11-08] MEDS: NS 1,000 ML IV SCH ×2 (12:27→22:16)
[2022-11-08] MEDS ORDERED: POTASSIUM CHLORIDE 10MEQ SR TABLET PO SCH (12:30)
[2022-11-08 15:00] VITALS: BP 99/60; TEMP 97.5; O2SAT 95
[2022-11-08 16:00] LABS: CK-MB VALUE MASS < 1.0 NG/ML (<3.6)
[2022-11-08 16:16] LABS: CPK CREATINE PHOSPHOKINASE 102 U/L (34-145); MB/CK RELATIVE INDEX 0.98 (< OR =4)
[2022-11-08 16:31] LABS: ABG BASE EXCESS 10.3 (-2.0-2.0); ABG HCO3 34.9 MMOL/L (22.0-26.0); ABG O2 SATURATION 93.6 % (95.0-99.0); ABG PARTIAL PRESSURE CO2 46.2 mmHg (35.0-45.0); ABG PARTIAL PRESSURE O2 97.1 mmHg (75.0-100.0); ABG STANDARD HCO3 33.9 MMOL/L. (22.0-26.0); ABG TOTAL CO2 36.3 MMOL/L (23.0-31.0); ABG pH (ARTERIAL) 7.496 UNITS (7.350-7.450)
[2022-11-08 17:29] LABS: ALBUMIN 2.6 G/DL (3.2-5.2); BILIRUBIN,TOTAL 0.5 MG/DL (0.3-1.2); CALCIUM LEVEL 9.7 MG/DL (8.3-10.6); CREATININE FOR GFR 1.94 MG/DL (0.55-1.30); GLOMERULAR FILTRATION RATE 25.9 (>32); POTASSIUM SERUM 3.8 MMOL/L (3.5-5.1); TOTAL PROTEIN 5.5 G/DL (5.7-8.2)
[2022-11-08] MEDS ORDERED: INSULIN LISPRO (NovoLOG) PER UNIT SC SCH (17:30)
[2022-11-08] MEDS ORDERED: cefTRIAXone SOD 1 GM in D5W MINI-BAG PLUS 50 ML IV SCH (18:00)
[2022-11-08 18:10] LABS: INR 1.27; PARTIAL THROMBOPLASTIN TIME 27.9 SECONDS (24.8-34.2); PROTHROMBIN TIME 15.6 SECONDS (12.5-14.5)
[2022-11-08] MEDS: SIMVASTATIN 40 MG TAB PO SCH (21:00)
[2022-11-08] MEDS: NORTRIPTYLINE 25 MG CAP PO SCH (21:00)
[2022-11-08] MEDS: LEVOTHYROXINE 125MCG TABLET (0.125MG) PO SCH (21:00)
[2022-11-08] MEDS ORDERED: LEVEMIR (INSULIN DETEMIR) 1 UNITS/0.01ML SC ONE (21:55)
[2022-11-08 22:00] VITALS: BP 105/66; TEMP 97.7; O2SAT 92
[2022-11-08] MEDS: HEPARIN SOD (PORCINE) 5000UNITS/ML 1ML VIAL/SYRINGE SQ SCH (22:15)
[2022-11-08] MEDS: LATANOPROST 0.005% OPHTH SOLN 2.5 ML OU SCH (22:17)
[2022-11-09] MEDS: INSULIN LISPRO (NovoLOG) PER UNIT SC SCH ×5 (01:12→18:04)
[2022-11-09] MEDS ORDERED: INSULIN LISPRO (NovoLOG) PER UNIT SC ONE (01:30)
[2022-11-09 05:48] VITALS: BP 111/67; TEMP 96.6; O2SAT 94
[2022-11-09 06:04] LABS: HEMATOCRIT 44.6 % (36.0-47.0); HEMOGLOBIN 13.6 g/dl (12.0-15.5); MEAN CORPUSCULAR HEMOGLOBIN 29.4 pg (27.0-33.0); MEAN CORPUSCULAR HGB CONC 30.5 g/dl (32.0-36.5); MEAN CORPUSCULAR VOLUME 96.3 fl (80.0-96.0); PLATELET COUNT, AUTOMATED 320 10^3/uL (150-450); RED BLOOD COUNT 4.63 10^6/uL (4.00-5.40); WHITE BLOOD COUNT 9.5 10^3/uL (4.0-10.0)
[2022-11-09 06:38] LABS: ALBUMIN 2.4 G/DL (3.2-5.2); ALKALINE PHOSPHATASE 93 U/L (46-116); ALT/SGPT 51 U/L (7.0-40); AST/SGOT 17 U/L (<34); BILIRUBIN,TOTAL 0.4 MG/DL (0.3-1.2); BLOOD UREA NITROGEN 103 MG/DL (9-23); CALCIUM LEVEL 9.4 MG/DL (8.3-10.6); CARBON DIOXIDE LEVEL > 40.0 MMOL/L (20-31); CHLORIDE LEVEL 94 MMOL/L (98-107); CREATININE FOR GFR 1.83 MG/DL (0.55-1.30); GLOMERULAR FILTRATION RATE 27.7 (>32); GLUCOSE, FASTING 180 MG/DL (74-106); POTASSIUM SERUM 3.3 MMOL/L (3.5-5.1); SODIUM LEVEL 141 MMOL/L (136-145); TOTAL PROTEIN 5.2 G/DL (5.7-8.2)
[2022-11-09] MEDS: NS 1,000 ML IV SCH (08:16)
[2022-11-09] MEDS ORDERED: PANTOPRAZOLE 40MG VIAL IV SCH (09:00)
[2022-11-09] MEDS: allopurinoL 300 MG TAB PO SCH (09:00)
[2022-11-09] MEDS: predniSONE 10MG TAB PO SCH ×2 (09:00→19:29)
[2022-11-09] MEDS: METOPROLOL SUCC (TopROL XL) 50MG **XL** TAB PO SCH (09:00)
[2022-11-09] MEDS: CALCITRIOL 0.25 MCG CAP (S0169) PO SCH (09:00)
[2022-11-09] MEDS: PREGABALIN 25 MG CAP (LYRICA) PO SCH ×3 (09:21→21:39)
[2022-11-09] MEDS: LEVEMIR (INSULIN DETEMIR) 1 UNITS/0.01ML SC SCH ×2 (10:40→21:38)
[2022-11-09] MEDS: COSOPT OCUMETER PLUS 10ML (DORZOLAMIDE/TIMOLOL) OU SCH ×2 (10:41→21:39)
[2022-11-09] MEDS: HEPARIN SOD (PORCINE) 5000UNITS/ML 1ML VIAL/SYRINGE SQ SCH (10:41)
[2022-11-09 14:00] VITALS: BP 122/68; TEMP 97.5; O2SAT 94
[2022-11-09] MEDS: DIAPER RELIEF PASTE (DESITIN) 60GM TOP SCH (16:48)
[2022-11-09] MEDS: LIDOCAINE 5% (LIDODERM) PATCH TD SCH (16:48)
[2022-11-09] MEDS: CLOBETASOL PROPIONATE EMOLLIENT 0.05% CR 60 GM TOP SCH (16:49)
[2022-11-09 20:51] VITALS: BP 116/54; TEMP 97.3; O2SAT 95
[2022-11-09] MEDS: LEVOTHYROXINE 125MCG TABLET (0.125MG) PO SCH (21:39)
[2022-11-09] MEDS: NORTRIPTYLINE 25 MG CAP PO SCH (21:39)
[2022-11-09] MEDS: LATANOPROST 0.005% OPHTH SOLN 2.5 ML OU SCH (21:39)
[2022-11-09] MEDS: SIMVASTATIN 40 MG TAB PO SCH (21:39)
[2022-11-09] MEDS: APIXABAN 2.5 MG TAB (ELIQUIS) PO SCH (21:39)
[2022-11-10 05:50] VITALS: BP 125/69; TEMP 97.2; O2SAT 92
[2022-11-10 06:31] LABS: HEMATOCRIT 41.1 % (36.0-47.0); HEMOGLOBIN 12.6 g/dl (12.0-15.5); MEAN CORPUSCULAR HEMOGLOBIN 29.8 pg (27.0-33.0); MEAN CORPUSCULAR HGB CONC 30.7 g/dl (32.0-36.5); MEAN CORPUSCULAR VOLUME 97.2 fl (80.0-96.0); PLATELET COUNT, AUTOMATED 259 10^3/uL (150-450); RED BLOOD COUNT 4.23 10^6/uL (4.00-5.40); WHITE BLOOD COUNT 6.4 10^3/uL (4.0-10.0)
[2022-11-10 07:06] LABS: ALBUMIN 2.3 G/DL (3.2-5.2); BILIRUBIN,TOTAL 0.4 MG/DL (0.3-1.2); CALCIUM LEVEL 9.5 MG/DL (8.3-10.6); CREATININE FOR GFR 1.28 MG/DL (0.55-1.30); GLOMERULAR FILTRATION RATE 41.9 (>32); POTASSIUM SERUM 3.3 MMOL/L (3.5-5.1); TOTAL PROTEIN 4.7 G/DL (5.7-8.2)
[2022-11-10] MEDS: INSULIN LISPRO (NovoLOG) PER UNIT SC SCH ×6 (07:30→16:59)
[2022-11-10] MEDS: LEVEMIR (INSULIN DETEMIR) 1 UNITS/0.01ML SC SCH ×2 (08:10→21:49)
[2022-11-10] MEDS: OMEPRAZOLE 20MG CAP PO SCH (08:10)
[2022-11-10] MEDS: PREGABALIN 25 MG CAP (LYRICA) PO SCH ×3 (08:11→21:48)
[2022-11-10] MEDS: allopurinoL 300 MG TAB PO SCH (08:11)
[2022-11-10] MEDS: predniSONE 10MG TAB PO SCH (08:11)
[2022-11-10] MEDS: APIXABAN 2.5 MG TAB (ELIQUIS) PO SCH ×2 (08:11→21:48)
[2022-11-10] MEDS: CALCITRIOL 0.25 MCG CAP (S0169) PO SCH (08:11)
[2022-11-10] MEDS: COSOPT OCUMETER PLUS 10ML (DORZOLAMIDE/TIMOLOL) OU SCH ×2 (08:12→21:49)
[2022-11-10] MEDS: METOPROLOL SUCC (TopROL XL) 50MG **XL** TAB PO SCH (08:13)
[2022-11-10] MEDS: DIAPER RELIEF PASTE (DESITIN) 60GM TOP SCH (09:00)
[2022-11-10] MEDS: CLOBETASOL PROPIONATE EMOLLIENT 0.05% CR 60 GM TOP SCH (09:00)
[2022-11-10] MEDS: LIDOCAINE 5% (LIDODERM) PATCH TD SCH (09:00)
[2022-11-10] MEDS ORDERED: POTASSIUM CHLORIDE 10MEQ SR TABLET PO SCH (09:00)
[2022-11-10] MEDS: ALBUTEROL SULFATE 2.5MG/0.5ML INH NEB SOLN NEB SCH (19:32)
[2022-11-10 21:40] VITALS: BP 130/64; TEMP 97.2; O2SAT 92
[2022-11-10] MEDS: SIMVASTATIN 40 MG TAB PO SCH (21:48)
[2022-11-10] MEDS: LEVOTHYROXINE 125MCG TABLET (0.125MG) PO SCH (21:48)
[2022-11-10] MEDS: NORTRIPTYLINE 25 MG CAP PO SCH (21:48)
[2022-11-10] MEDS: LATANOPROST 0.005% OPHTH SOLN 2.5 ML OU SCH (21:50)
[2022-11-11 05:24] VITALS: BP 147/71; TEMP 97.5; O2SAT 93
[2022-11-11 06:18] LABS: HEMATOCRIT 41.8 % (36.0-47.0); HEMOGLOBIN 12.6 g/dl (12.0-15.5); MEAN CORPUSCULAR HEMOGLOBIN 29.6 pg (27.0-33.0); MEAN CORPUSCULAR HGB CONC 30.1 g/dl (32.0-36.5); MEAN CORPUSCULAR VOLUME 98.1 fl (80.0-96.0); PLATELET COUNT, AUTOMATED 260 10^3/uL (150-450); RED BLOOD COUNT 4.26 10^6/uL (4.00-5.40); WHITE BLOOD COUNT 7.2 10^3/uL (4.0-10.0)
[2022-11-11 06:46] LABS: ALBUMIN 2.5 G/DL (3.2-5.2); BILIRUBIN,TOTAL 0.4 MG/DL (0.3-1.2); CALCIUM LEVEL 10.5 MG/DL (8.3-10.6); CREATININE FOR GFR 1.18 MG/DL (0.55-1.30); POTASSIUM SERUM 3.4 MMOL/L (3.5-5.1); TOTAL PROTEIN 4.9 G/DL (5.7-8.2)
[2022-11-11] MEDS: ALBUTEROL SULFATE 2.5MG/0.5ML INH NEB SOLN NEB SCH ×3 (07:26→19:27)
[2022-11-11 07:44] LABS: PTH INTACT 87.5 PG/ML (18.5-88.0)
[2022-11-11 07:46] LABS: THYROID STIMULATING HORMONE 3.85 uIU/ML (0.55-4.78); TOTAL 25(OH) VITAMIN D 9.6 NG/ML (20.0-100.0)
[2022-11-11 08:00] VITALS: BP 147/67; TEMP 97.3; O2SAT 92
[2022-11-11] MEDS: INSULIN LISPRO (NovoLOG) PER UNIT SC SCH ×6 (09:33→16:48)
[2022-11-11] MEDS: PREGABALIN 25 MG CAP (LYRICA) PO SCH ×3 (09:33→21:18)
[2022-11-11] MEDS: predniSONE 20 MG TAB PO SCH (09:35)
[2022-11-11] MEDS: OMEPRAZOLE 20MG CAP PO SCH (10:25)
[2022-11-11] MEDS: CALCITRIOL 0.25 MCG CAP (S0169) PO SCH (10:27)
[2022-11-11] MEDS: METOPROLOL SUCC (TopROL XL) 50MG **XL** TAB PO SCH (10:28)
[2022-11-11] MEDS: allopurinoL 300 MG TAB PO SCH (10:29)
[2022-11-11] MEDS: LEVEMIR (INSULIN DETEMIR) 1 UNITS/0.01ML SC SCH ×2 (10:31→21:19)
[2022-11-11] MEDS: COSOPT OCUMETER PLUS 10ML (DORZOLAMIDE/TIMOLOL) OU SCH ×2 (10:31→21:20)
[2022-11-11] MEDS: DIAPER RELIEF PASTE (DESITIN) 60GM TOP SCH (10:37)
[2022-11-11] MEDS: CLOBETASOL PROPIONATE EMOLLIENT 0.05% CR 60 GM TOP SCH (10:38)
[2022-11-11] MEDS: APIXABAN 2.5 MG TAB (ELIQUIS) PO SCH ×2 (10:39→21:18)
[2022-11-11 14:00] VITALS: BP 143/66; TEMP 97.3; O2SAT 95
[2022-11-11] MEDS: LIDOCAINE 5% (LIDODERM) PATCH TD SCH (14:07)
[2022-11-11] MEDS ORDERED: TORSEMIDE 20 MG TAB PO SCH (14:20)
[2022-11-11 20:00] VITALS: BP 119/56; TEMP 97.9; O2SAT 95
[2022-11-11] MEDS: LEVOTHYROXINE 125MCG TABLET (0.125MG) PO SCH (21:18)
[2022-11-11] MEDS: SIMVASTATIN 40 MG TAB PO SCH (21:18)
[2022-11-11] MEDS: NORTRIPTYLINE 25 MG CAP PO SCH (21:18)
[2022-11-11] MEDS: LATANOPROST 0.005% OPHTH SOLN 2.5 ML OU SCH (21:19)
[2022-11-12 06:00] VITALS: BP 138/64; TEMP 97.5; O2SAT 94
[2022-11-12 06:05] LABS: HEMATOCRIT 40.9 % (36.0-47.0); HEMOGLOBIN 12.4 g/dl (12.0-15.5); MEAN CORPUSCULAR HEMOGLOBIN 29.7 pg (27.0-33.0); MEAN CORPUSCULAR HGB CONC 30.3 g/dl (32.0-36.5); MEAN CORPUSCULAR VOLUME 97.8 fl (80.0-96.0); PLATELET COUNT, AUTOMATED 246 10^3/uL (150-450); RED BLOOD COUNT 4.18 10^6/uL (4.00-5.40); WHITE BLOOD COUNT 7.2 10^3/uL (4.0-10.0)
[2022-11-12 06:28] LABS: ALBUMIN 2.4 G/DL (3.2-5.2); BILIRUBIN,TOTAL 0.3 MG/DL (0.3-1.2); CALCIUM LEVEL 9.8 MG/DL (8.3-10.6); CREATININE FOR GFR 1.17 MG/DL (0.55-1.30); GLOMERULAR FILTRATION RATE 46.5 (>32); POTASSIUM SERUM 3.3 MMOL/L (3.5-5.1); TOTAL PROTEIN 4.8 G/DL (5.7-8.2)
[2022-11-12] MEDS: ALBUTEROL SULFATE 2.5MG/0.5ML INH NEB SOLN NEB SCH ×3 (07:25→20:35)
[2022-11-12] MEDS: INSULIN LISPRO (NovoLOG) PER UNIT SC SCH ×6 (07:30→17:13)
[2022-11-12] MEDS ORDERED: TORSEMIDE 20 MG TAB PO SCH (09:00)
[2022-11-12] MEDS: predniSONE 20 MG TAB PO SCH (09:07)
[2022-11-12] MEDS: OMEPRAZOLE 20MG CAP PO SCH (09:07)
[2022-11-12] MEDS: APIXABAN 2.5 MG TAB (ELIQUIS) PO SCH ×2 (09:07→20:28)
[2022-11-12] MEDS: PREGABALIN 25 MG CAP (LYRICA) PO SCH ×3 (09:07→20:27)
[2022-11-12] MEDS: allopurinoL 300 MG TAB PO SCH (09:07)
[2022-11-12] MEDS: POTASSIUM CHLORIDE 10MEQ SR TABLET PO SCH (09:07)
[2022-11-12] MEDS: LEVEMIR (INSULIN DETEMIR) 1 UNITS/0.01ML SC SCH ×2 (09:08→20:26)
[2022-11-12] MEDS: METOPROLOL SUCC (TopROL XL) 50MG **XL** TAB PO SCH (09:08)
[2022-11-12] MEDS: COSOPT OCUMETER PLUS 10ML (DORZOLAMIDE/TIMOLOL) OU SCH ×2 (09:09→20:29)
[2022-11-12] MEDS: LIDOCAINE 5% (LIDODERM) PATCH TD SCH (09:09)
[2022-11-12] MEDS: CLOBETASOL PROPIONATE EMOLLIENT 0.05% CR 60 GM TOP SCH (09:10)
[2022-11-12] MEDS: DIAPER RELIEF PASTE (DESITIN) 60GM TOP SCH (09:10)
[2022-11-12] MEDS: ACETAMINOPHEN TAB 650MG DOSE (2X325MG) PO PRN (18:20)
[2022-11-12] MEDS: NORTRIPTYLINE 25 MG CAP PO SCH (20:26)
[2022-11-12] MEDS: LEVOTHYROXINE 125MCG TABLET (0.125MG) PO SCH (20:27)
[2022-11-12] MEDS: SIMVASTATIN 40 MG TAB PO SCH (20:27)
[2022-11-12] MEDS: LATANOPROST 0.005% OPHTH SOLN 2.5 ML OU SCH (20:29)
[2022-11-13 05:35] VITALS: BP 135/58; TEMP 96.8; O2SAT 94
[2022-11-13 06:15] LABS: HEMATOCRIT 38.8 % (36.0-47.0); HEMOGLOBIN 11.7 g/dl (12.0-15.5); MEAN CORPUSCULAR HEMOGLOBIN 29.8 pg (27.0-33.0); MEAN CORPUSCULAR HGB CONC 30.2 g/dl (32.0-36.5); MEAN CORPUSCULAR VOLUME 98.7 fl (80.0-96.0); PLATELET COUNT, AUTOMATED 232 10^3/uL (150-450); RED BLOOD COUNT 3.93 10^6/uL (4.00-5.40); WHITE BLOOD COUNT 7.4 10^3/uL (4.0-10.0)
[2022-11-13 06:43] LABS: ALBUMIN 2.3 G/DL (3.2-5.2); BILIRUBIN,TOTAL 0.3 MG/DL (0.3-1.2); CALCIUM LEVEL 9.8 MG/DL (8.3-10.6); CREATININE FOR GFR 1.24 MG/DL (0.55-1.30); GLOMERULAR FILTRATION RATE 43.5 (>32); POTASSIUM SERUM 4.2 MMOL/L (3.5-5.1); TOTAL PROTEIN 4.5 G/DL (5.7-8.2)
[2022-11-13] MEDS: ALBUTEROL SULFATE 2.5MG/0.5ML INH NEB SOLN NEB SCH ×3 (07:23→21:15)
[2022-11-13] MEDS: POTASSIUM CHLORIDE 10MEQ SR TABLET PO SCH (08:54)
[2022-11-13] MEDS: predniSONE 20 MG TAB PO SCH (08:55)
[2022-11-13] MEDS: OMEPRAZOLE 20MG CAP PO SCH (08:55)
[2022-11-13] MEDS: APIXABAN 2.5 MG TAB (ELIQUIS) PO SCH ×2 (08:55→22:26)
[2022-11-13] MEDS: METOPROLOL SUCC (TopROL XL) 50MG **XL** TAB PO SCH (08:57)
[2022-11-13] MEDS: allopurinoL 300 MG TAB PO SCH (08:57)
[2022-11-13] MEDS: PREGABALIN 25 MG CAP (LYRICA) PO SCH ×3 (08:57→22:27)
[2022-11-13] MEDS: LEVEMIR (INSULIN DETEMIR) 1 UNITS/0.01ML SC SCH ×2 (08:58→22:26)
[2022-11-13] MEDS: COSOPT OCUMETER PLUS 10ML (DORZOLAMIDE/TIMOLOL) OU SCH ×2 (08:58→22:31)
[2022-11-13] MEDS: INSULIN LISPRO (NovoLOG) PER UNIT SC SCH ×6 (08:58→17:29)
[2022-11-13] MEDS ORDERED: predniSONE 20 MG TAB PO SCH (09:00)
[2022-11-13] MEDS ORDERED: metOLazone 2.5 MG TAB PO SCH (09:00)
[2022-11-13] MEDS ORDERED: POTASSIUM CHLORIDE 10MEQ SR TABLET PO SCH (09:00)
[2022-11-13] MEDS: TORSEMIDE (DEMADEX) 50 MG PER 1/2 TAB PO SCH (12:31)
[2022-11-13] MEDS: DIAPER RELIEF PASTE (DESITIN) 60GM TOP SCH (16:00)
[2022-11-13] MEDS: LIDOCAINE 5% (LIDODERM) PATCH TD SCH (16:00)
[2022-11-13] MEDS: CLOBETASOL PROPIONATE EMOLLIENT 0.05% CR 60 GM TOP SCH (16:00)
[2022-11-13] MEDS ORDERED: **hydrALAZINE** 10 MG TAB PO ONE (16:30)
[2022-11-13] MEDS: SIMVASTATIN 40 MG TAB PO SCH (22:26)
[2022-11-13] MEDS: LEVOTHYROXINE 125MCG TABLET (0.125MG) PO SCH (22:26)
[2022-11-13] MEDS: NORTRIPTYLINE 25 MG CAP PO SCH (22:28)
[2022-11-13] MEDS: LATANOPROST 0.005% OPHTH SOLN 2.5 ML OU SCH (22:31)
[2022-11-14 04:41] VITALS: BP 130/65; TEMP 97.9; O2SAT 93
[2022-11-14 06:49] LABS: HEMATOCRIT 40.4 % (36.0-47.0); HEMOGLOBIN 12.6 g/dl (12.0-15.5); MEAN CORPUSCULAR HEMOGLOBIN 30.8 pg (27.0-33.0); MEAN CORPUSCULAR HGB CONC 31.2 g/dl (32.0-36.5); MEAN CORPUSCULAR VOLUME 98.8 fl (80.0-96.0); PLATELET COUNT, AUTOMATED 228 10^3/uL (150-450); RED BLOOD COUNT 4.09 10^6/uL (4.00-5.40); WHITE BLOOD COUNT 8.6 10^3/uL (4.0-10.0)
[2022-11-14] MEDS: ALBUTEROL SULFATE 2.5MG/0.5ML INH NEB SOLN NEB SCH ×3 (07:14→21:00)
[2022-11-14 07:17] LABS: ALBUMIN 2.4 G/DL (3.2-5.2); BILIRUBIN,TOTAL 0.4 MG/DL (0.3-1.2); CALCIUM LEVEL 9.6 MG/DL (8.3-10.6); CREATININE FOR GFR 1.18 MG/DL (0.55-1.30); TOTAL PROTEIN 4.7 G/DL (5.7-8.2)
[2022-11-14] MEDS: INSULIN LISPRO (NovoLOG) PER UNIT SC SCH ×6 (07:30→17:27)
[2022-11-14] MEDS: LEVEMIR (INSULIN DETEMIR) 1 UNITS/0.01ML SC SCH ×2 (09:00→22:14)
[2022-11-14] MEDS: TORSEMIDE (DEMADEX) 50 MG PER 1/2 TAB PO SCH (09:38)
[2022-11-14] MEDS: OMEPRAZOLE 20MG CAP PO SCH (09:38)
[2022-11-14] MEDS: predniSONE 20 MG TAB PO SCH (09:38)
[2022-11-14 09:39] VITALS: BP 130/65
[2022-11-14] MEDS: APIXABAN 2.5 MG TAB (ELIQUIS) PO SCH ×2 (09:39→22:13)
[2022-11-14] MEDS: PREGABALIN 25 MG CAP (LYRICA) PO SCH ×3 (09:39→22:14)
[2022-11-14] MEDS: COSOPT OCUMETER PLUS 10ML (DORZOLAMIDE/TIMOLOL) OU SCH ×2 (09:39→22:16)
[2022-11-14] MEDS: METOPROLOL SUCC (TopROL XL) 50MG **XL** TAB PO SCH (09:39)
[2022-11-14] MEDS: allopurinoL 300 MG TAB PO SCH (09:39)
[2022-11-14] MEDS: POTASSIUM CHLORIDE 10MEQ SR TABLET PO SCH (09:39)
[2022-11-14] MEDS ORDERED: LEVEMIR (INSULIN DETEMIR) 1 UNITS/0.01ML SC ONE (13:00)
[2022-11-14] MEDS: LIDOCAINE 5% (LIDODERM) PATCH TD SCH (16:00)
[2022-11-14] MEDS: SIMVASTATIN 40 MG TAB PO SCH (22:13)
[2022-11-14] MEDS: LEVOTHYROXINE 125MCG TABLET (0.125MG) PO SCH (22:13)
[2022-11-14] MEDS: NORTRIPTYLINE 25 MG CAP PO SCH (22:14)
[2022-11-14] MEDS: DIAPER RELIEF PASTE (DESITIN) 60GM TOP SCH (22:15)
[2022-11-14] MEDS: CLOBETASOL PROPIONATE EMOLLIENT 0.05% CR 60 GM TOP SCH (22:15)
[2022-11-14] MEDS: LATANOPROST 0.005% OPHTH SOLN 2.5 ML OU SCH (22:16)
[2022-11-15 05:10] VITALS: BP 143/63; TEMP 97.5; O2SAT 95
[2022-11-15 06:30] LABS: HEMATOCRIT 38.6 % (36.0-47.0); HEMOGLOBIN 11.8 g/dl (12.0-15.5); MEAN CORPUSCULAR HGB CONC 30.6 g/dl (32.0-36.5); MEAN CORPUSCULAR VOLUME 98.2 fl (80.0-96.0); PLATELET COUNT, AUTOMATED 219 10^3/uL (150-450); RED BLOOD COUNT 3.93 10^6/uL (4.00-5.40); WHITE BLOOD COUNT 7.8 10^3/uL (4.0-10.0)
[2022-11-15 06:49] LABS: ALBUMIN 2.4 G/DL (3.2-5.2); BILIRUBIN,TOTAL 0.3 MG/DL (0.3-1.2); CALCIUM LEVEL 9.2 MG/DL (8.3-10.6); CREATININE FOR GFR 1.17 MG/DL (0.55-1.30); GLOMERULAR FILTRATION RATE 46.5 (>32); POTASSIUM SERUM 3.8 MMOL/L (3.5-5.1); TOTAL PROTEIN 4.7 G/DL (5.7-8.2)
[2022-11-15] MEDS ORDERED: predniSONE 20 MG TAB PO SCH (07:00)
[2022-11-15] MEDS: INSULIN LISPRO (NovoLOG) PER UNIT SC SCH ×5 (07:00→12:13)
[2022-11-15] MEDS ORDERED: HumuLIN N INSULIN (NovoLIN N) PER UNIT SC SCH (07:00)
[2022-11-15] MEDS: ALBUTEROL SULFATE 2.5MG/0.5ML INH NEB SOLN NEB SCH ×2 (07:55→13:04)
[2022-11-15 09:45] VITALS: BP 118/50
[2022-11-15] MEDS: allopurinoL 300 MG TAB PO SCH ×2 (09:45→09:49)
[2022-11-15] MEDS: METOPROLOL SUCC (TopROL XL) 50MG **XL** TAB PO SCH ×2 (09:45→09:49)
[2022-11-15] MEDS: OMEPRAZOLE 20MG CAP PO SCH (09:46)
[2022-11-15] MEDS: APIXABAN 2.5 MG TAB (ELIQUIS) PO SCH (09:46)
[2022-11-15] MEDS: TORSEMIDE 20 MG TAB PO SCH ×2 (09:47→09:56)
[2022-11-15] MEDS: LEVEMIR (INSULIN DETEMIR) 1 UNITS/0.01ML SC SCH (09:47)
[2022-11-15] MEDS: POTASSIUM CHLORIDE 10MEQ SR TABLET PO SCH (09:47)
[2022-11-15] MEDS: COSOPT OCUMETER PLUS 10ML (DORZOLAMIDE/TIMOLOL) OU SCH (09:50)
[2022-11-15] MEDS: PREGABALIN 25 MG CAP (LYRICA) PO SCH (09:56)
[2022-11-15] MEDS ORDERED: PRED20TA PO (11:20)
[2022-11-15] MEDS ORDERED: HUMU1INJ2 SC (11:20)
[2022-11-15] MEDS ORDERED: INSULADS SC (11:20)
[2022-11-15] MEDS ORDERED: TORS20TA2 PO (11:25)
[2022-11-15] MEDS: CLOBETASOL PROPIONATE EMOLLIENT 0.05% CR 60 GM TOP SCH (12:17)
[2022-11-15] MEDS: DIAPER RELIEF PASTE (DESITIN) 60GM TOP SCH (12:17)
[2022-11-15] MEDS: LIDOCAINE 5% (LIDODERM) PATCH TD SCH (12:18)
[2022-11-15] MEDS ORDERED: INSULIN LISPRO (NovoLOG) PER UNIT SC SCH (21:00)
== END 2022-11-15 13:30 | DRG 637 ==
LOC: EDBD 00:31 → M ED 00:31 → M ED INP 04:25 → M PCU 14:50 → M MSPAV 11-03 14:20
PROVIDERS: ADMIT Internal Medicine; ATTEND Internal Medicine
DX: E11.649 Type 2 diabetes mellitus with hypoglycemia without coma (principal); G93.41 Metabolic encephalopathy; N39.0 Urinary tract infection, site not specified; L97.919 Non-pressure chronic ulcer of unspecified part of right lower leg with unspecified severity; L03.116 Cellulitis of left lower limb; B37.0 Candidal stomatitis; E87.3 Alkalosis; L97.929 Non-pressure chronic ulcer of unspecified part of left lower leg with unspecified severity; E11.65 Type 2 diabetes mellitus with hyperglycemia; E11.22 Type 2 diabetes mellitus with diabetic chronic kidney disease; N18.4 Chronic kidney disease, stage 4 (severe); G47.33 Obstructive sleep apnea (adult) (pediatric); I48.91 Unspecified atrial fibrillation; E11.42 Type 2 diabetes mellitus with diabetic polyneuropathy; E86.0 Dehydration; E11.622 Type 2 diabetes mellitus with other skin ulcer; J45.909 Unspecified asthma, uncomplicated; N17.9 Acute kidney failure, unspecified; E03.9 Hypothyroidism, unspecified; K21.9 Gastro-esophageal reflux disease without esophagitis; Z90.49 Acquired absence of other specified parts of digestive tract; Z87.891 Personal history of nicotine dependence; Z79.01 Long term (current) use of anticoagulants; Z79.890 Hormone replacement therapy; Z79.4 Long term (current) use of insulin; Z79.52 Long term (current) use of systemic steroids; Z79.899 Other long term (current) drug therapy; Z88.8 Allergy status to other drugs, medicaments and biological substances; Z20.822 Contact with and (suspected) exposure to COVID-19

== ENCOUNTER → 2022-11-27 | Outpatient (REF) | payer MEDICARE, BC ==
[~2022-11-27] MED LIST changes: +ALBU2.5V10 INH; +ALLO300T2 PO; +DEXT50SY3 IV; +ELIQ2.5T PO; +FLON1SPR NARES; +GLUC1INJ21 SC; +HUMU1INJ2 SC; +INSUHUMDS SC; +LIDO5TD TOP; +METO1TAB7 PO; +METO25TA PO; +NORT25CA2 PO; +NYST1POW9 TOP; +OMEP40CA5 PO; +POTA-298 PO; +PRED20TA PO; +PREG25CA PO; +RUTI500T PO; +SYNT125T PO; +TEMO0.0517 TOP; +TORS100T PO
[2022-11-27 12:29] LABS: HEMOGLOBIN A1c 7.4 % (4.0-6.0)
== END ==
LOC: SKLAB2 09:55
PROVIDERS: ATTEND Internal Medicine
DX: E11.65 Type 2 diabetes mellitus with hyperglycemia (principal); Z79.52 Long term (current) use of systemic steroids

== ENCOUNTER 2023-03-03 14:20 | Emergency (ER) | payer MEDICARE ==
[~2023-03-03] VITALS: Ht 165.1 cm; Wt 102.7 kg
[~2023-03-03 14:20] MED LIST changes: +ACET-683 PO; +ACET-897 PO; +BACI1CAP PO; +DOXY100T PO; +HYDR-3715 PO; +LANTINJ4 SC; +PRED10TA2; +PRED10TA2 PO
[2023-03-03] MEDS ORDERED: ELIQ2.5T PO (15:15)
[2023-03-03 17:55] VITALS: BP 145/68; TEMP 97.8; O2SAT 97
== END 2023-03-03 18:03 | disposition home or self-care (01) ==
LOC: M ED 14:20
DX: R05.9 Cough, unspecified (principal); Z20.89 Contact with and (suspected) exposure to other communicable diseases; E11.9 Type 2 diabetes mellitus without complications; I10 Essential (primary) hypertension; J44.9 Chronic obstructive pulmonary disease, unspecified; E78.5 Hyperlipidemia, unspecified; E87.6 Hypokalemia; Z79.4 Long term (current) use of insulin; Z79.01 Long term (current) use of anticoagulants; Z79.899 Other long term (current) drug therapy; Z88.5 Allergy status to narcotic agent; Z88.8 Allergy status to other drugs, medicaments and biological substances

== ENCOUNTER → 2023-03-14 | Outpatient (REF) | payer MEDICARE ==
[2023-03-14 16:52] LABS: CALCIUM LEVEL 9.5 MG/DL (8.3-10.6); CREATININE FOR GFR 2.12 MG/DL (0.55-1.30); GLOMERULAR FILTRATION RATE 23.4 (>32); MAGNESIUM LEVEL 1.9 MG/DL (1.8-2.4); POTASSIUM SERUM 3.8 MMOL/L (3.5-5.1)
== END ==
LOC: M SHH 15:52
PROVIDERS: ATTEND Internal Medicine
DX: E11.40 Type 2 diabetes mellitus with diabetic neuropathy, unspecified (principal); I13.0 Hypertensive heart and chronic kidney disease with heart failure and stage 1 through stage 4 chronic kidney disease, or unspecified chronic kidney disease; E83.42 Hypomagnesemia; N18.9 Chronic kidney disease, unspecified; I50.9 Heart failure, unspecified

== ENCOUNTER 2023-03-16 22:22 | Inpatient (IN) | payer MEDICARE ==
[~2023-03-16] VITALS: Ht 165.1 cm; Wt 105.4 kg
[2023-03-16] MEDS ORDERED: METO25TA PO (22:51)
[2023-03-16 23:08] LABS: BASO # 0.1 10^3/uL (0.0-0.2); BASO % 0.8 % (0.0-1.0); EOS # 0.6 10^3/uL (0.0-0.5); EOS % 5.6 % (0.0-3.0); HEMATOCRIT 37.6 % (36.0-47.0); HEMOGLOBIN 11.2 g/dl (12.0-15.5); LYMPH % 9.7 % (24.0-44.0); MEAN CORPUSCULAR HEMOGLOBIN 27.4 pg (27.0-33.0); MEAN CORPUSCULAR HGB CONC 29.8 g/dl (32.0-36.5); MEAN CORPUSCULAR VOLUME 91.9 fl (80.0-96.0); MONO # 0.8 10^3/uL (0.0-0.8); MONO % 8.2 % (2.0-8.0); NEUTROPHILS # 7.7 10^3/uL (1.5-8.5); NEUTROPHILS % 75.1 % (36.0-66.0); PLATELET COUNT, AUTOMATED 501 10^3/uL (150-450); RED BLOOD COUNT 4.09 10^6/uL (4.00-5.40); WHITE BLOOD COUNT 10.2 10^3/uL (4.0-10.0)
[2023-03-16 23:32] LABS: BILIRUBIN,DIRECT 0.2 MG/DL (<0.4); BILIRUBIN,TOTAL 0.4 MG/DL (0.3-1.2); CALCIUM LEVEL 9.2 MG/DL (8.3-10.6); CREATININE FOR GFR 2.24 MG/DL (0.55-1.30); GLOMERULAR FILTRATION RATE 21.9 (>32); POTASSIUM SERUM 3.7 MMOL/L (3.5-5.1)
[2023-03-16 23:33] LABS: THYROID STIMULATING HORMONE 4.173 uIU/ML (0.55-4.78)
[2023-03-16] MEDS ORDERED: ACETAMINOPHEN TAB 650MG DOSE (2X325MG) PO ONE (23:35)
[2023-03-16] MEDS ORDERED: cefTRIAXone SOD 1 GM in D5W MINI-BAG PLUS 50 ML IV ONE (23:55)
[2023-03-17] VITALS (7 sets, daily range): BP systolic 110–140; BP diastolic 56–64; TEMP 97.3–99.6; O2SAT 95–99
[2023-03-17] MEDS ORDERED: LEVO150T7 PO (00:14)
[2023-03-17] MEDS ORDERED: [UNRECOGNIZED DRUG - CODE] PO (00:15)
[2023-03-17] MEDS ORDERED: HOME MED LIST COMPLETE! XX SCH (00:20)
[2023-03-17] MEDS ORDERED: DEXTROSE 50% 50ML SYRINGE IV PRN (01:25)
[2023-03-17] MEDS ORDERED: MOM 30ML SUSPENSION UDC PO PRN (01:25)
[2023-03-17] MEDS ORDERED: ALBUTEROL SULFATE 2.5MG/0.5ML INH NEB SOLN INH PRN (01:25)
[2023-03-17] MEDS ORDERED: GLUCOSE 4GM CHEW TABLET PO PRN (01:25)
[2023-03-17] MEDS ORDERED: NYSTATIN 100,000 UNITS/GM TOPICAL PWD 15GM TOP PRN (01:25)
[2023-03-17] MEDS ORDERED: GLUCAGON INJ 1MG VIAL SC PRN (01:25)
[2023-03-17] MEDS ORDERED: NS 1,000 ML IV SCH (01:25)
[2023-03-17] MEDS ORDERED: INSULIN LISPRO (NovoLOG) PER UNIT SC ONE (02:00)
[2023-03-17] MEDS: NORTRIPTYLINE 25 MG CAP PO SCH ×2 (02:46→21:09)
[2023-03-17] MEDS: LATANOPROST 0.005% OPHTH SOLN 2.5 ML OU SCH ×2 (02:50→21:10)
[2023-03-17] MEDS: LEVOTHYROXINE 150MCG TABLET (0.15MG) PO SCH (05:06)
[2023-03-17 07:09] LABS: HEMATOCRIT 33.9 % (36.0-47.0); HEMOGLOBIN 9.9 g/dl (12.0-15.5); MEAN CORPUSCULAR HEMOGLOBIN 26.8 pg (27.0-33.0); MEAN CORPUSCULAR HGB CONC 29.2 g/dl (32.0-36.5); MEAN CORPUSCULAR VOLUME 91.6 fl (80.0-96.0); PLATELET COUNT, AUTOMATED 418 10^3/uL (150-450); WHITE BLOOD COUNT 7.3 10^3/uL (4.0-10.0)
[2023-03-17 07:47] LABS: ALBUMIN 2.5 G/DL (3.2-5.2); BILIRUBIN,TOTAL 0.3 MG/DL (0.3-1.2); CALCIUM LEVEL 8.5 MG/DL (8.3-10.6); CREATININE FOR GFR 1.9 MG/DL (0.55-1.30); GLOMERULAR FILTRATION RATE 26.5 (>32); POTASSIUM SERUM 3.1 MMOL/L (3.5-5.1); TOTAL PROTEIN 5.1 G/DL (5.7-8.2)
[2023-03-17] MEDS ORDERED: TORSEMIDE 100 MG TAB PO SCH (09:00)
[2023-03-17] MEDS ORDERED: allopurinoL 300 MG TAB PO SCH (09:00)
[2023-03-17] MEDS: LEVEMIR (INSULIN DETEMIR) 1 UNITS/0.01ML SC SCH ×2 (09:24→20:57)
[2023-03-17] MEDS: INSULIN LISPRO (NovoLOG) PER UNIT SC SCH ×4 (09:24→20:57)
[2023-03-17] MEDS: OMEPRAZOLE 20MG CAP PO SCH (09:25)
[2023-03-17] MEDS: CALCITRIOL 0.25 MCG CAP (S0169) PO SCH (09:25)
[2023-03-17] MEDS: DOCUSATE SODIUM 100MG CAPSULE PO SCH ×2 (09:25→21:10)
[2023-03-17] MEDS: METOPROLOL SUCC (TopROL XL) 50MG **XL** TAB PO SCH (09:25)
[2023-03-17] MEDS: APIXABAN 2.5 MG TAB (ELIQUIS) PO SCH ×2 (09:25→21:09)
[2023-03-17] MEDS: COSOPT OCUMETER PLUS 10ML (DORZOLAMIDE/TIMOLOL) OU SCH ×2 (09:29→21:10)
[2023-03-17 09:59] LABS: VENOUS BASE EXCESS 10.4 (-2.0-2.0); VENOUS HCO3 34.9 MMOL/L (23.0-27.0); VENOUS O2 SATURATION 97.3 % (60.0-80.0); VENOUS PARTIAL PRESSURE CO2 46.5 mmHg (38.0-50.0); VENOUS PARTIAL PRESSURE O2 202.7 mmHg (30.0-50.0); VENOUS PH 7.493 UNITS (7.330-7.430); VENOUS STANDARD HCO3 34.1 MMOL/L; VENOUS TOTAL CO2 36.3 MMOL/L (24.0-28.0)
[2023-03-17] MEDS ORDERED: POTASSIUM CHLORIDE 10MEQ SR TABLET PO ONE (10:00)
[2023-03-17] MEDS: LR 1,000 ML IV SCH ×2 (10:11→17:37)
[2023-03-17] MEDS: PREGABALIN 25 MG CAP (LYRICA) PO SCH ×2 (14:22→21:09)
[2023-03-17] MEDS ORDERED: ACETAMINOPHEN TAB 650MG DOSE (2X325MG) PO ONE (20:00)
[2023-03-17] MEDS: MAGNESIUM GLUCONATE 500 MG TAB PO SCH (21:07)
[2023-03-17] MEDS: SIMVASTATIN 40 MG TAB PO SCH (21:09)
[2023-03-17] MEDS: NYSTATIN 100,000 UNITS/GM TOPICAL PWD 15GM TOP PRN (21:16)
[2023-03-17] MEDS: cefTRIAXone SOD 1 GM in D5W MINI-BAG PLUS 50 ML IV SCH (23:01)
[2023-03-18 03:20] VITALS: BP 121/57; TEMP 96.7; O2SAT 96
[2023-03-18] MEDS: LEVOTHYROXINE 150MCG TABLET (0.15MG) PO SCH (05:36)
[2023-03-18 07:56] LABS: BASO # 0.1 10^3/uL (0.0-0.2); BASO % 1.1 % (0.0-1.0); EOS # 0.7 10^3/uL (0.0-0.5); EOS % 10.2 % (0.0-3.0); HEMATOCRIT 34.3 % (36.0-47.0); HEMOGLOBIN 9.9 g/dl (12.0-15.5); LYMPH # 1.1 10^3/uL (1.5-5.0); LYMPH % 17.3 % (24.0-44.0); MEAN CORPUSCULAR HEMOGLOBIN 27.3 pg (27.0-33.0); MEAN CORPUSCULAR HGB CONC 28.9 g/dl (32.0-36.5); MEAN CORPUSCULAR VOLUME 94.5 fl (80.0-96.0); MONO # 0.8 10^3/uL (0.0-0.8); MONO % 12.2 % (2.0-8.0); NEUTROPHILS # 3.9 10^3/uL (1.5-8.5); NEUTROPHILS % 58.7 % (36.0-66.0); PLATELET COUNT, AUTOMATED 411 10^3/uL (150-450); RED BLOOD COUNT 3.63 10^6/uL (4.00-5.40); WHITE BLOOD COUNT 6.6 10^3/uL (4.0-10.0)
[2023-03-18 07:57] VITALS: BP 157/70; TEMP 97.2; O2SAT 96
[2023-03-18] MEDS: PREGABALIN 25 MG CAP (LYRICA) PO SCH ×3 (08:00→21:05)
[2023-03-18] MEDS: LEVEMIR (INSULIN DETEMIR) 1 UNITS/0.01ML SC SCH (08:10)
[2023-03-18] MEDS: METOPROLOL SUCC (TopROL XL) 50MG **XL** TAB PO SCH (08:11)
[2023-03-18] MEDS: INSULIN LISPRO (NovoLOG) PER UNIT SC SCH ×4 (08:11→20:59)
[2023-03-18] MEDS: DOCUSATE SODIUM 100MG CAPSULE PO SCH ×2 (08:11→21:00)
[2023-03-18] MEDS: APIXABAN 2.5 MG TAB (ELIQUIS) PO SCH ×2 (08:11→21:01)
[2023-03-18] MEDS: OMEPRAZOLE 20MG CAP PO SCH (08:11)
[2023-03-18] MEDS: CALCITRIOL 0.25 MCG CAP (S0169) PO SCH (08:11)
[2023-03-18] MEDS: COSOPT OCUMETER PLUS 10ML (DORZOLAMIDE/TIMOLOL) OU SCH ×2 (08:12→21:01)
[2023-03-18 08:28] LABS: ALBUMIN 2.3 G/DL (3.2-5.2); CALCIUM LEVEL 9.2 MG/DL (8.3-10.6); CREATININE FOR GFR 1.33 MG/DL (0.55-1.30); POTASSIUM SERUM 3.7 MMOL/L (3.5-5.1)
[2023-03-18] MEDS ORDERED: LEVEMIR (INSULIN DETEMIR) 1 UNITS/0.01ML SC ONE (11:05)
[2023-03-18 12:17] VITALS: BP 123/58; TEMP 97.6; O2SAT 94
[2023-03-18] MEDS ORDERED: oxyCODONE 5MG TAB PO ONE (12:25)
[2023-03-18 14:00] VITALS: BP 120/58; TEMP 98.3; O2SAT 98
[2023-03-18 19:38] VITALS: BP 120/56; TEMP 97.6; O2SAT 98
[2023-03-18] MEDS: MAGNESIUM GLUCONATE 500 MG TAB PO SCH (20:59)
[2023-03-18] MEDS ORDERED: LEVEMIR (INSULIN DETEMIR) 1 UNITS/0.01ML SC SCH (21:00)
[2023-03-18] MEDS: SIMVASTATIN 40 MG TAB PO SCH (21:01)
[2023-03-18] MEDS: NORTRIPTYLINE 25 MG CAP PO SCH (21:01)
[2023-03-18] MEDS: LATANOPROST 0.005% OPHTH SOLN 2.5 ML OU SCH (21:01)
[2023-03-18] MEDS: cefTRIAXone SOD 1 GM in D5W MINI-BAG PLUS 50 ML IV SCH (23:13)
[2023-03-18 23:20] VITALS: BP 121/54; TEMP 97.9; O2SAT 92
[2023-03-19] MEDS: NYSTATIN 100,000 UNITS/GM TOPICAL PWD 15GM TOP PRN (02:24)
[2023-03-19 03:45] VITALS: BP 119/66; TEMP 97.5; O2SAT 96
[2023-03-19] MEDS: LEVOTHYROXINE 150MCG TABLET (0.15MG) PO SCH (06:00)
[2023-03-19 07:29] VITALS: BP 139/64; TEMP 97.8; O2SAT 98
[2023-03-19] MEDS: METOPROLOL SUCC (TopROL XL) 50MG **XL** TAB PO SCH (07:59)
[2023-03-19] MEDS: OMEPRAZOLE 20MG CAP PO SCH (07:59)
[2023-03-19] MEDS: INSULIN LISPRO (NovoLOG) PER UNIT SC SCH ×4 (07:59→21:41)
[2023-03-19] MEDS: APIXABAN 2.5 MG TAB (ELIQUIS) PO SCH ×2 (08:00→21:41)
[2023-03-19] MEDS: PREGABALIN 25 MG CAP (LYRICA) PO SCH ×3 (08:00→21:42)
[2023-03-19] MEDS: CALCITRIOL 0.25 MCG CAP (S0169) PO SCH (08:00)
[2023-03-19] MEDS: DOCUSATE SODIUM 100MG CAPSULE PO SCH ×2 (08:00→21:00)
[2023-03-19] MEDS: COSOPT OCUMETER PLUS 10ML (DORZOLAMIDE/TIMOLOL) OU SCH ×2 (08:00→21:40)
[2023-03-19 08:09] LABS: HEMATOCRIT 34.1 % (36.0-47.0); HEMOGLOBIN 9.8 g/dl (12.0-15.5); MEAN CORPUSCULAR HEMOGLOBIN 26.8 pg (27.0-33.0); MEAN CORPUSCULAR HGB CONC 28.7 g/dl (32.0-36.5); MEAN CORPUSCULAR VOLUME 93.4 fl (80.0-96.0); PLATELET COUNT, AUTOMATED 412 10^3/uL (150-450); RED BLOOD COUNT 3.65 10^6/uL (4.00-5.40); WHITE BLOOD COUNT 7.5 10^3/uL (4.0-10.0)
[2023-03-19] MEDS ORDERED: LEVEMIR (INSULIN DETEMIR) 1 UNITS/0.01ML SC SCH (09:00)
[2023-03-19 09:23] LABS: CALCIUM LEVEL 10.1 MG/DL (8.3-10.6); CREATININE FOR GFR 1.17 MG/DL (0.55-1.30); GLOMERULAR FILTRATION RATE 46.4 (>32); POTASSIUM SERUM 3.9 MMOL/L (3.5-5.1)
[2023-03-19 11:39] VITALS: BP 111/56; TEMP 96.9; O2SAT 92
[2023-03-19] MEDS ORDERED: LEVEMIR (INSULIN DETEMIR) 1 UNITS/0.01ML SC ONE (12:25)
[2023-03-19] MEDS: TORSEMIDE 20 MG TAB PO SCH ×2 (12:25→12:36)
[2023-03-19 12:30] VITALS: BP 108/60
[2023-03-19] MEDS: CEFDINIR 300 MG CAP (OMNICEF) PO SCH ×2 (12:36→21:42)
[2023-03-19] MEDS ORDERED: ACETAMINOPHEN 500 MG TAB PO PRN (13:15)
[2023-03-19] MEDS: oxyCODONE 5MG TAB PO PRN (13:31)
[2023-03-19 16:00] VITALS: BP 110/62; TEMP 96.7; O2SAT 89
[2023-03-19 20:34] VITALS: BP 159/68; TEMP 98.9; O2SAT 90
[2023-03-19] MEDS: LATANOPROST 0.005% OPHTH SOLN 2.5 ML OU SCH (21:40)
[2023-03-19] MEDS: LEVEMIR (INSULIN DETEMIR) 1 UNITS/0.01ML SC SCH (21:41)
[2023-03-19] MEDS: MAGNESIUM GLUCONATE 500 MG TAB PO SCH (21:42)
[2023-03-19] MEDS: NORTRIPTYLINE 25 MG CAP PO SCH (21:42)
[2023-03-19] MEDS: SIMVASTATIN 40 MG TAB PO SCH (21:42)
[2023-03-19] MEDS ORDERED: HALOPERIDOL 5MG/ML 1ML VIAL IM ONE (22:40)
[2023-03-20] MEDS: oxyCODONE 5MG TAB PO PRN ×3 (00:10→19:02)
[2023-03-20 00:15] VITALS: BP 151/65; TEMP 98.2; O2SAT 96
[2023-03-20] MEDS: COSOPT OCUMETER PLUS 10ML (DORZOLAMIDE/TIMOLOL) OU SCH ×3 (01:08→22:11)
[2023-03-20] MEDS: LATANOPROST 0.005% OPHTH SOLN 2.5 ML OU SCH ×2 (01:08→22:11)
[2023-03-20 04:10] VITALS: BP 157/70; TEMP 97.8; O2SAT 95
[2023-03-20] MEDS ORDERED: LORazepam 2 MG/ML 1ML VIAL IM ONE (04:20)
[2023-03-20 05:47] LABS: BASO # 0.1 10^3/uL (0.0-0.2); BASO % 1.2 % (0.0-1.0); EOS # 0.8 10^3/uL (0.0-0.5); EOS % 9.1 % (0.0-3.0); HEMATOCRIT 32.9 % (36.0-47.0); HEMOGLOBIN 9.7 g/dl (12.0-15.5); LYMPH # 1.3 10^3/uL (1.5-5.0); LYMPH % 14.6 % (24.0-44.0); MEAN CORPUSCULAR HEMOGLOBIN 27.3 pg (27.0-33.0); MEAN CORPUSCULAR HGB CONC 29.5 g/dl (32.0-36.5); MEAN CORPUSCULAR VOLUME 92.7 fl (80.0-96.0); MONO # 1.1 10^3/uL (0.0-0.8); MONO % 12.4 % (2.0-8.0); NEUTROPHILS # 5.3 10^3/uL (1.5-8.5); NEUTROPHILS % 61.9 % (36.0-66.0); PLATELET COUNT, AUTOMATED 393 10^3/uL (150-450); RED BLOOD COUNT 3.55 10^6/uL (4.00-5.40); WHITE BLOOD COUNT 8.6 10^3/uL (4.0-10.0)
[2023-03-20 06:30] LABS: CALCIUM LEVEL 10.4 MG/DL (8.3-10.6); CREATININE FOR GFR 1.17 MG/DL (0.55-1.30); GLOMERULAR FILTRATION RATE 46.4 (>32)
[2023-03-20] MEDS: INSULIN LISPRO (NovoLOG) PER UNIT SC SCH ×7 (07:30→21:00)
[2023-03-20 08:00] VITALS: BP 146/64; TEMP 97.4; O2SAT 94
[2023-03-20] MEDS: PREGABALIN 25 MG CAP (LYRICA) PO SCH ×3 (08:00→22:10)
[2023-03-20] MEDS: NYSTATIN 100,000 UNITS/GM TOPICAL PWD 15GM TOP PRN (08:08)
[2023-03-20] MEDS: LEVEMIR (INSULIN DETEMIR) 1 UNITS/0.01ML SC SCH ×2 (08:58→22:03)
[2023-03-20] MEDS: DOCUSATE SODIUM 100MG CAPSULE PO SCH ×2 (09:00→21:00)
[2023-03-20] MEDS: OMEPRAZOLE 20MG CAP PO SCH (09:09)
[2023-03-20] MEDS: TORSEMIDE 20 MG TAB PO SCH (09:12)
[2023-03-20] MEDS: CALCITRIOL 0.25 MCG CAP (S0169) PO SCH (09:12)
[2023-03-20] MEDS: APIXABAN 2.5 MG TAB (ELIQUIS) PO SCH ×2 (09:14→22:10)
[2023-03-20] MEDS: METOPROLOL SUCC (TopROL XL) 50MG **XL** TAB PO SCH (09:14)
[2023-03-20] MEDS: LEVOTHYROXINE 150MCG TABLET (0.15MG) PO SCH (09:18)
[2023-03-20] MEDS: CEFDINIR 300 MG CAP (OMNICEF) PO SCH ×2 (09:18→22:10)
[2023-03-20 11:35] VITALS: BP 145/64; TEMP 97.4; O2SAT 98
[2023-03-20 17:22] LABS: ABG BASE EXCESS 8.5 (-2.0-2.0); ABG HCO3 33.8 MMOL/L (22.0-26.0); ABG O2 SATURATION 97.2 % (95.0-99.0); ABG PARTIAL PRESSURE CO2 51.2 mmHg (35.0-45.0); ABG PARTIAL PRESSURE O2 142.1 mmHg (75.0-100.0); ABG STANDARD HCO3 32.2 MMOL/L. (22.0-26.0); ABG TOTAL CO2 35.4 MMOL/L (23.0-31.0); ABG pH (ARTERIAL) 7.438 UNITS (7.350-7.450)
[2023-03-20 20:39] VITALS: BP 129/61; TEMP 97.6; O2SAT 97
[2023-03-20] MEDS: SIMVASTATIN 40 MG TAB PO SCH (22:09)
[2023-03-20] MEDS: MAGNESIUM GLUCONATE 500 MG TAB PO SCH (22:09)
[2023-03-20] MEDS: NORTRIPTYLINE 25 MG CAP PO SCH (22:10)
[2023-03-21] VITALS (7 sets, daily range): BP systolic 115–141; BP diastolic 57–77; TEMP 97–98.3; O2SAT 92–96
[2023-03-21] MEDS: APIXABAN 2.5 MG TAB (ELIQUIS) PO SCH ×3 (00:36→20:28)
[2023-03-21] MEDS: LATANOPROST 0.005% OPHTH SOLN 2.5 ML OU SCH ×2 (00:37→20:25)
[2023-03-21] MEDS: MAGNESIUM GLUCONATE 500 MG TAB PO SCH ×2 (00:37→20:27)
[2023-03-21] MEDS: SIMVASTATIN 40 MG TAB PO SCH ×2 (00:37→20:28)
[2023-03-21] MEDS: CEFDINIR 300 MG CAP (OMNICEF) PO SCH ×3 (00:37→20:28)
[2023-03-21] MEDS: COSOPT OCUMETER PLUS 10ML (DORZOLAMIDE/TIMOLOL) OU SCH ×3 (00:37→20:26)
[2023-03-21 04:46] LABS: BASO # 0.1 10^3/uL (0.0-0.2); BASO % 1.2 % (0.0-1.0); EOS # 0.7 10^3/uL (0.0-0.5); EOS % 6.4 % (0.0-3.0); HEMATOCRIT 35.6 % (36.0-47.0); HEMOGLOBIN 10.3 g/dl (12.0-15.5); LYMPH % 10.1 % (24.0-44.0); MEAN CORPUSCULAR HEMOGLOBIN 26.8 pg (27.0-33.0); MEAN CORPUSCULAR HGB CONC 28.9 g/dl (32.0-36.5); MEAN CORPUSCULAR VOLUME 92.7 fl (80.0-96.0); MONO # 1.1 10^3/uL (0.0-0.8); MONO % 10.9 % (2.0-8.0); NEUTROPHILS # 7.3 10^3/uL (1.5-8.5); NEUTROPHILS % 70.9 % (36.0-66.0); PLATELET COUNT, AUTOMATED 418 10^3/uL (150-450); RED BLOOD COUNT 3.84 10^6/uL (4.00-5.40); WHITE BLOOD COUNT 10.3 10^3/uL (4.0-10.0)
[2023-03-21 05:15] LABS: CALCIUM LEVEL 8.9 MG/DL (8.3-10.6); CREATININE FOR GFR 1.26 MG/DL (0.55-1.30); GLOMERULAR FILTRATION RATE 42.6 (>32); POTASSIUM SERUM 3.7 MMOL/L (3.5-5.1)
[2023-03-21] MEDS: LEVOTHYROXINE 150MCG TABLET (0.15MG) PO SCH (06:08)
[2023-03-21] MEDS ORDERED: NS 1,000 ML IV ONE (07:20)
[2023-03-21] MEDS: INSULIN LISPRO (NovoLOG) PER UNIT SC SCH ×7 (08:41→20:20)
[2023-03-21] MEDS: PREGABALIN 25 MG CAP (LYRICA) PO SCH ×3 (08:42→20:27)
[2023-03-21] MEDS: CALCITRIOL 0.25 MCG CAP (S0169) PO SCH (08:42)
[2023-03-21] MEDS: OMEPRAZOLE 20MG CAP PO SCH (08:42)
[2023-03-21] MEDS: BISACODYL 10MG SUPP PR SCH ×3 (08:43→20:15)
[2023-03-21] MEDS: DOCUSATE SODIUM 100MG CAPSULE PO SCH ×2 (08:43→20:15)
[2023-03-21] MEDS: SENOKOT S TAB PO SCH ×2 (08:43→20:15)
[2023-03-21] MEDS: METOPROLOL SUCC (TopROL XL) 50MG **XL** TAB PO SCH (08:48)
[2023-03-21] MEDS: LEVEMIR (INSULIN DETEMIR) 1 UNITS/0.01ML SC SCH ×2 (08:49→20:25)
[2023-03-21] MEDS ORDERED: MAGNESIUM CITRATE 300ML BTL PO ONE (09:00)
[2023-03-21] MEDS: SODIUM CHLORIDE NASAL 0.65% SPRAY BTL (OCEAN) SCH (20:25)
[2023-03-21] MEDS: NORTRIPTYLINE 25 MG CAP PO SCH (20:28)
[2023-03-22 03:34] VITALS: BP 136/63; TEMP 97.8; O2SAT 94
[2023-03-22] MEDS: LEVOTHYROXINE 150MCG TABLET (0.15MG) PO SCH (05:16)
[2023-03-22 05:39] LABS: BASO # 0.1 10^3/uL (0.0-0.2); BASO % 1.2 % (0.0-1.0); EOS # 0.8 10^3/uL (0.0-0.5); EOS % 12.3 % (0.0-3.0); HEMOGLOBIN 9.9 g/dl (12.0-15.5); LYMPH # 1.2 10^3/uL (1.5-5.0); LYMPH % 18.1 % (24.0-44.0); MEAN CORPUSCULAR HEMOGLOBIN 27.1 pg (27.0-33.0); MEAN CORPUSCULAR HGB CONC 29.1 g/dl (32.0-36.5); MEAN CORPUSCULAR VOLUME 93.2 fl (80.0-96.0); MONO # 1.1 10^3/uL (0.0-0.8); NEUTROPHILS # 3.5 10^3/uL (1.5-8.5); NEUTROPHILS % 51.8 % (36.0-66.0); PLATELET COUNT, AUTOMATED 370 10^3/uL (150-450); RED BLOOD COUNT 3.65 10^6/uL (4.00-5.40); WHITE BLOOD COUNT 6.8 10^3/uL (4.0-10.0)
[2023-03-22 06:03] LABS: CALCIUM LEVEL 9.2 MG/DL (8.3-10.6); CREATININE FOR GFR 1.11 MG/DL (0.55-1.30); GLOMERULAR FILTRATION RATE 49.3 (>32); POTASSIUM SERUM 3.7 MMOL/L (3.5-5.1)
[2023-03-22] MEDS: INSULIN LISPRO (NovoLOG) PER UNIT SC SCH ×7 (07:37→20:32)
[2023-03-22 07:46] VITALS: BP 153/68; TEMP 97.7; O2SAT 92
[2023-03-22] MEDS: SENOKOT S TAB PO SCH ×2 (08:09→20:24)
[2023-03-22] MEDS: LEVEMIR (INSULIN DETEMIR) 1 UNITS/0.01ML SC SCH ×2 (08:09→20:33)
[2023-03-22] MEDS: OMEPRAZOLE 20MG CAP PO SCH (08:09)
[2023-03-22] MEDS: PREGABALIN 25 MG CAP (LYRICA) PO SCH ×4 (08:09→21:46)
[2023-03-22] MEDS: APIXABAN 2.5 MG TAB (ELIQUIS) PO SCH ×2 (08:10→20:36)
[2023-03-22] MEDS: CALCITRIOL 0.25 MCG CAP (S0169) PO SCH (08:10)
[2023-03-22] MEDS: CEFDINIR 300 MG CAP (OMNICEF) PO SCH ×2 (08:10→20:36)
[2023-03-22] MEDS: DOCUSATE SODIUM 100MG CAPSULE PO SCH ×2 (08:10→20:24)
[2023-03-22] MEDS: METOPROLOL SUCC (TopROL XL) 50MG **XL** TAB PO SCH (08:10)
[2023-03-22] MEDS: SODIUM CHLORIDE NASAL 0.65% SPRAY BTL (OCEAN) SCH ×2 (08:10→20:25)
[2023-03-22] MEDS: COSOPT OCUMETER PLUS 10ML (DORZOLAMIDE/TIMOLOL) OU SCH ×2 (08:11→20:33)
[2023-03-22] MEDS: BISACODYL 10MG SUPP PR SCH ×2 (08:22→20:25)
[2023-03-22] MEDS: TORSEMIDE 20 MG TAB PO SCH (09:08)
[2023-03-22] MEDS: LATANOPROST 0.005% OPHTH SOLN 2.5 ML OU SCH (20:33)
[2023-03-22] MEDS: SIMVASTATIN 40 MG TAB PO SCH (20:36)
[2023-03-22] MEDS: MAGNESIUM GLUCONATE 500 MG TAB PO SCH (20:36)
[2023-03-22] MEDS: NORTRIPTYLINE 25 MG CAP PO SCH (20:36)
[2023-03-22 21:07] VITALS: BP 132/62; TEMP 98.9; O2SAT 92
[2023-03-23 03:30] VITALS: BP 129/61; TEMP 97.3; O2SAT 97
[2023-03-23] MEDS: LEVOTHYROXINE 150MCG TABLET (0.15MG) PO SCH (05:36)
[2023-03-23 06:19] LABS: BASO # 0.1 10^3/uL (0.0-0.2); BASO % 1.4 % (0.0-1.0); EOS # 0.9 10^3/uL (0.0-0.5); EOS % 11.9 % (0.0-3.0); HEMATOCRIT 33.8 % (36.0-47.0); HEMOGLOBIN 9.9 g/dl (12.0-15.5); LYMPH # 1.4 10^3/uL (1.5-5.0); LYMPH % 18.6 % (24.0-44.0); MEAN CORPUSCULAR HEMOGLOBIN 27.1 pg (27.0-33.0); MEAN CORPUSCULAR HGB CONC 29.3 g/dl (32.0-36.5); MEAN CORPUSCULAR VOLUME 92.6 fl (80.0-96.0); MONO # 1.1 10^3/uL (0.0-0.8); MONO % 14.9 % (2.0-8.0); NEUTROPHILS # 3.9 10^3/uL (1.5-8.5); NEUTROPHILS % 52.5 % (36.0-66.0); PLATELET COUNT, AUTOMATED 363 10^3/uL (150-450); RED BLOOD COUNT 3.65 10^6/uL (4.00-5.40); WHITE BLOOD COUNT 7.3 10^3/uL (4.0-10.0)
[2023-03-23 06:42] LABS: CALCIUM LEVEL 8.9 MG/DL (8.3-10.6); CREATININE FOR GFR 1.19 MG/DL (0.55-1.30); GLOMERULAR FILTRATION RATE 45.5 (>32); POTASSIUM SERUM 3.3 MMOL/L (3.5-5.1)
[2023-03-23] MEDS ORDERED: POTASSIUM CHLORIDE 10MEQ SR TABLET PO ONE (07:10)
[2023-03-23 07:30] VITALS: BP 128/61; TEMP 97.6; O2SAT 97
[2023-03-23] MEDS: KCL 10MEQ/100ML SWI (KRUN) 10 MEQ in IV 1 EA IV SCH ×5 (08:07→13:00)
[2023-03-23] MEDS: INSULIN LISPRO (NovoLOG) PER UNIT SC SCH ×4 (08:31→12:26)
[2023-03-23] MEDS: LEVEMIR (INSULIN DETEMIR) 1 UNITS/0.01ML SC SCH (08:32)
[2023-03-23] MEDS: TORSEMIDE 20 MG TAB PO SCH (08:32)
[2023-03-23] MEDS: CEFDINIR 300 MG CAP (OMNICEF) PO SCH (08:32)
[2023-03-23 08:33] VITALS: BP 128/61
[2023-03-23] MEDS: METOPROLOL SUCC (TopROL XL) 50MG **XL** TAB PO SCH (08:33)
[2023-03-23] MEDS: PREGABALIN 25 MG CAP (LYRICA) PO SCH ×2 (08:33→14:00)
[2023-03-23] MEDS: APIXABAN 2.5 MG TAB (ELIQUIS) PO SCH (08:33)
[2023-03-23] MEDS: OMEPRAZOLE 20MG CAP PO SCH (08:34)
[2023-03-23] MEDS: CALCITRIOL 0.25 MCG CAP (S0169) PO SCH (08:34)
[2023-03-23] MEDS: SODIUM CHLORIDE NASAL 0.65% SPRAY BTL (OCEAN) SCH (08:34)
[2023-03-23] MEDS: SENOKOT S TAB PO SCH (08:34)
[2023-03-23] MEDS: COSOPT OCUMETER PLUS 10ML (DORZOLAMIDE/TIMOLOL) OU SCH (08:34)
[2023-03-23] MEDS: BISACODYL 10MG SUPP PR SCH (09:00)
[2023-03-23] MEDS: DOCUSATE SODIUM 100MG CAPSULE PO SCH (09:00)
[2023-03-23] MEDS ORDERED: CEFD300CAP PO (13:02)
== END 2023-03-23 16:53 | disposition home health service (06) | DRG 689 ==
LOC: EDBD 22:22 → M ED 22:22 → M ED INP 23:59 → ENRESERV 03-17 00:33 → M PCU 03-17 01:13
PROVIDERS: ADMIT Family Medicine; ATTEND Student in an Organized Health Care Education/Training Program
DX: N39.0 Urinary tract infection, site not specified (principal); G93.41 Metabolic encephalopathy; N17.9 Acute kidney failure, unspecified; N18.30 Chronic kidney disease, stage 3 unspecified; E11.22 Type 2 diabetes mellitus with diabetic chronic kidney disease; G47.33 Obstructive sleep apnea (adult) (pediatric); I48.91 Unspecified atrial fibrillation; E11.42 Type 2 diabetes mellitus with diabetic polyneuropathy; J45.909 Unspecified asthma, uncomplicated; E03.9 Hypothyroidism, unspecified; K21.9 Gastro-esophageal reflux disease without esophagitis; E78.5 Hyperlipidemia, unspecified; H40.9 Unspecified glaucoma; D64.9 Anemia, unspecified; B96.1 Klebsiella pneumoniae [K. pneumoniae] as the cause of diseases classified elsewhere; E11.65 Type 2 diabetes mellitus with hyperglycemia; K59.00 Constipation, unspecified; R41.0 Disorientation, unspecified; I87.2 Venous insufficiency (chronic) (peripheral); R33.9 Retention of urine, unspecified; Z79.01 Long term (current) use of anticoagulants; Z90.49 Acquired absence of other specified parts of digestive tract; Z79.4 Long term (current) use of insulin; Z88.5 Allergy status to narcotic agent; Z88.1 Allergy status to other antibiotic agents; Z88.8 Allergy status to other drugs, medicaments and biological substances

== ENCOUNTER → 2023-04-04 | Outpatient (REF) | payer MEDICARE ==
[~2023-04-04] MED LIST changes: +CEFD300CAP PO; +LEVO150T7 PO; +[UNRECOGNIZED DRUG - CODE] PO
[2023-04-04 18:44] LABS: HEMATOCRIT 35.4 % (36.0-47.0); HEMOGLOBIN 10.3 g/dl (12.0-15.5); MEAN CORPUSCULAR HGB CONC 29.1 g/dl (32.0-36.5); MEAN CORPUSCULAR VOLUME 92.9 fl (80.0-96.0); PLATELET COUNT, AUTOMATED 440 10^3/uL (150-450); RED BLOOD COUNT 3.81 10^6/uL (4.00-5.40); WHITE BLOOD COUNT 8.1 10^3/uL (4.0-10.0)
[2023-04-04 19:28] LABS: ALBUMIN 2.8 G/DL (3.2-5.2); ALKALINE PHOSPHATASE 129 U/L (46-116); ALT/SGPT < 9 U/L (7.0-40); AST/SGOT 10 U/L (<34); BILIRUBIN,TOTAL 0.3 MG/DL (0.3-1.2); BLOOD UREA NITROGEN 24 MG/DL (9-23); CALCIUM LEVEL 9.1 MG/DL (8.3-10.6); CARBON DIOXIDE LEVEL 33 MMOL/L (20-31); CHLORIDE LEVEL 101 MMOL/L (98-107); CREATININE FOR GFR 1.41 MG/DL (0.55-1.30); GLOMERULAR FILTRATION RATE 37.4 (>32); GLUCOSE, FASTING 149 MG/DL (74-106); MAGNESIUM LEVEL 1.5 MG/DL (1.8-2.4); POTASSIUM SERUM 4.1 MMOL/L (3.5-5.1); SODIUM LEVEL 140 MMOL/L (136-145); TOTAL PROTEIN 5.3 G/DL (5.7-8.2)
[2023-04-04 22:23] LABS: APPEARANCE, URINE CLEAR (CLEAR); BACTERIA, URINE AUTO 1+ (NEGATIVE); BILIRUBIN, URINE AUTO NEGATIVE (NEGATIVE); BLOOD, URINE BLOOD 1+ (NEGATIVE); COLOR, URINE STRAW (YELLOW); GLUCOSE, URINE (UA) AUTO NEGATIVE (NEGATIVE); KETONE, URINE AUTO NEGATIVE (NEGATIVE); LEUKOCYTE ESTERASE, URINE AUTO 2+ (NEGATIVE); MUCUS, URINE SMALL (NEGATIVE); NITRITE, URINE AUTO NEGATIVE (NEGATIVE); PROTEIN, URINE AUTO NEGATIVE (NEGATIVE); RBC, URINE AUTO 2 /HPF (0-3); SPECIFIC GRAVITY URINE AUTO 1.005 (1.002-1.035); SQUAMOUS EPITHELIAL CELL UR AU 1 /HPF (0-6); UROBILINOGEN, URINE AUTO 0.2 mg/dL (0.0-2.0); WBC, URINE AUTO 23 /HPF (0-3)
== END ==
LOC: M SHH 17:15
PROVIDERS: ATTEND Internal Medicine
DX: E11.40 Type 2 diabetes mellitus with diabetic neuropathy, unspecified (principal); N18.4 Chronic kidney disease, stage 4 (severe); Z79.899 Other long term (current) drug therapy

== ENCOUNTER → 2023-04-25 | Outpatient (REF) | payer MEDICARE ==
[2023-04-25 13:42] LABS: HEMATOCRIT 33.4 % (36.0-47.0); HEMOGLOBIN 9.7 g/dl (12.0-15.5); MEAN CORPUSCULAR HEMOGLOBIN 26.8 pg (27.0-33.0); MEAN CORPUSCULAR VOLUME 92.3 fl (80.0-96.0); PLATELET COUNT, AUTOMATED 409 10^3/uL (150-450); RED BLOOD COUNT 3.62 10^6/uL (4.00-5.40); WHITE BLOOD COUNT 5.9 10^3/uL (4.0-10.0)
[2023-04-25 14:02] LABS: ALBUMIN 2.4 G/DL (3.2-5.2); ALKALINE PHOSPHATASE 116 U/L (46-116); ALT/SGPT < 9 U/L (7.0-40); AST/SGOT 12 U/L (<34); BILIRUBIN,TOTAL 0.2 MG/DL (0.3-1.2); BLOOD UREA NITROGEN 21 MG/DL (9-23); CALCIUM LEVEL 8.6 MG/DL (8.3-10.6); CARBON DIOXIDE LEVEL 34 MMOL/L (20-31); CHLORIDE LEVEL 105 MMOL/L (98-107); CREATININE FOR GFR 1.32 MG/DL (0.55-1.30); GLOMERULAR FILTRATION RATE 40.3 (>32); GLUCOSE, FASTING 128 MG/DL (74-106); MAGNESIUM LEVEL 1.7 MG/DL (1.8-2.4); POTASSIUM SERUM 4.8 MMOL/L (3.5-5.1); SODIUM LEVEL 143 MMOL/L (136-145); TOTAL PROTEIN 4.9 G/DL (5.7-8.2)
== END ==
LOC: M SHH 12:40
PROVIDERS: ATTEND Internal Medicine
DX: I13.0 Hypertensive heart and chronic kidney disease with heart failure and stage 1 through stage 4 chronic kidney disease, or unspecified chronic kidney disease (principal); E11.40 Type 2 diabetes mellitus with diabetic neuropathy, unspecified; I50.9 Heart failure, unspecified; N18.9 Chronic kidney disease, unspecified

== ENCOUNTER → 2023-05-28 | Outpatient (REF) | payer MEDICARE ==
[2023-05-31 10:59] LABS: ALBUMIN 3.3 G/DL (3.2-5.2); BILIRUBIN,DIRECT 0.2 MG/DL (<0.4); BILIRUBIN,TOTAL 0.3 MG/DL (0.3-1.2); TOTAL PROTEIN 5.9 G/DL (5.7-8.2)
== END ==
LOC: M LAB REF 10:35
PROVIDERS: ATTEND Internal Medicine
DX: R74.8 Abnormal levels of other serum enzymes (principal)

== ENCOUNTER → 2023-05-28 | Outpatient (REF) | payer MEDICARE | LOC: M SFHCWAGY 17:17 | PROVIDERS: ATTEND Specialist | DX: N89.8 Other specified noninflammatory disorders of vagina (principal) ==

== ENCOUNTER → 2023-05-28 | Outpatient (CLI) | payer MEDICARE ==
[2023-05-28 17:04] LABS: HEMOGLOBIN A1c 7.3 % (4.0-6.0)
[2023-05-28 17:23] LABS: THYROID STIMULATING HORMONE 9.408 uIU/ML (0.55-4.78)
== END ==
LOC: M LAB 15:16
PROVIDERS: ATTEND Internal Medicine
DX: E03.9 Hypothyroidism, unspecified (principal); E11.65 Type 2 diabetes mellitus with hyperglycemia; E83.42 Hypomagnesemia

== ENCOUNTER → 2023-07-11 | Outpatient (CLI) | payer MEDICARE | LOC: M RAD 16:23 | PROVIDERS: ATTEND Internal Medicine | DX: R05.9 Cough, unspecified (principal) ==